=== PATIENT | female | born 1955 | race Caucasian/White ===

== ENCOUNTER 2023-08-18 10:42 | Outpatient (AMB) | payer OTHER, SELFPAY ==
[2023-08-18 10:45] VITALS: BP 128/74; PULSE 74; RESP 13; TEMP 36.4; O2SAT 99; BMI 41.7
--- NOTE | 2023-08-18 10:45 | MHC.PC.OV ---
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 Patient states that she thinks may have a UTI. Accompanied by: Self / Same As Patient Allergies iodine Allergy (Severe, Verified 08/18/23 11:55) Anaphylaxis seafood Allergy (Severe, Verified 08/18/23 11:55) Anaphylaxis yellow dye Allergy (Severe, Verified 08/18/23 11:55) Seizure zine Allergy (Severe, Uncoded 08/18/23 11:55) seizures Tobacco use date assessed: 08/18/23 Fall risk assessment: 2 + Falls in past year Last assessed Fall Risk: 08/18/23 Dental Screening Dental Screen Date: 08/18/23 Did you have a dental visit in the last 12 months?: No Did you have a dental problem in the last 6 months where you did not have access to dental care?: No Was dental information given to patient?: Yes HPI HPI Comments History of Present Illness Details 67-year-old female with bipolar disorder, depression, anxiety, peptic ulcer disease, GERD, osteoporosis, diabetes type 2, osteoarthritis, COPD, stroke, CKD 3a, proteinuria here to establish care. Reports that she recently moved here from [place]. She has a list of requests. The 1st is a letter requesting she received a 2 bedroom apartment. Currently lives in [address] housing. Has a scooter for mobility and does not have I bedroom apartment for this. She also requests a prescription for diabetic boost she uses this for dinner. Reports that she was using Ozempic in the past for her diabetes however this caused severe GI side effects. She was then placed on Victoza achieve weaned herself off. She is lost a significant amount of weight using these medications however since stopping she has gained her weight back. She is on metformin tolerating that well. She does not check her blood sugars at home. She reports that she has urinary symptoms today and thinks she has a UTI and she feels that this is related to elevated blood sugars. She does not know what her last A1c was. She also reports that she has a sore on her left foot. She complains of tremors that were brought on by medications This visit was technically difficult as she has tangential speech, she is very hard to redirect, and does not speak in a linear fashion. Also requested she is out of date of her routine health maintenance things like a bone density, immunizations, mammogram, colonoscopy. She is aware that all this will not be able to be ordered and covered today. However we will deal with the most important things today and continue to chip away at this as she begins to establish care. When I asked her about old medical records from [facility] as she told me that the breakfast that she was seeing was shut down and under some investigation and she has not able to get the records. I asked her for medical records from any other specialist down there and she reports the same. She states that she is not on any psychiatric medications as they made her too sedate and she feels much better without them. However based on this interview I do think that she would benefit from psychiatric intervention. [facility] Medical History (Updated 08/18/23 @ 16:56 by Fiona Jenkins, [facility]) Uterine cancer Bipolar 1 disorder Depression Anxiety Peptic ulcer GERD (gastroesophageal reflux disease) Back injury Osteoporosis Diabetes Arthritis Stroke COPD (chronic obstructive pulmonary disease) Surgical History (Updated 08/18/23 @ 11:25 by Hortensia Del Angel MA) H/O right heart catheterization Hx of cholecystectomy H/O hernia repair H/O: hysterectomy Hx of appendectomy H/O lumpectomy Family History (Updated 08/18/23 @ 11:27 by Hortensia Del Angel MA) Mother Breast cancer Bone cancer Father Diabetes Cardiovascular disease Maternal Grandmother High blood pressure Diabetes Cardiovascular disease Social History Housing: Other Housing Other:: Mobile Home Patient Tobacco Use Status: Former Tobacco user Tobacco use type: Cigarette Cigarette Packs Per Day: 3 Cigarettes Per Day: 60 Years Smoked: 25 e-Cigarette/Vaping Use: Never Used service: No Current occupational status: retired Cognitive needs: No Hearing needs: Yes Vision needs: No Questionnaire PHQ-9 Over the last 2 weeks, how often have you been bothered by any of the following problems? 1. Little interest or pleasure in doing things: not at all 2. Feeling down, depressed, or hopeless: several days 3. Trouble falling or staying asleep, or sleeping too much: several days 4. Feeling tired or having little energy: more than half the days 5. Poor appetite or overeating: more than half the days 6. Feeling bad about yourself - or that you are a failure or have let yourself or your family down: not at all 7. Trouble concentrating on things, such as reading the newspaper or watching television: more than half the days 8. Moving or speaking so slowly that other people could have noticed. Or the opposite - being so fidgety or restless that you have been moving around a lot more than usual: not at all 9. Thoughts that you would be better off or of hurting yourself in some way: not at all Total score: 8 Depression Screening Interpretation: Positive Depression Screening Done: Yes 43454 - PHQ-9 Billing: Yes Source: Developed by Drs. Gurjit White, Yahaira Kent, Yakov Helms and colleagues, with an educational talia from [employer]. Thrive Questionnaire Date Thrive assessed: 08/18/23 I am a: Patient What is your living situation today?: I have a steady place to live Within the past 12 months, did the food you bought not last and you didn't have the money to get more?: Never true Within the past 12 months, did you worry whether your food would run out before you got money to buy more?: Never true Do you have trouble paying for medicines?: No Do you have trouble getting transportation to medical appointments?: Yes Do you have trouble paying your heating and electricity bill?: Yes Do you have trouble taking care of your child, family member or friend?: No Do you have trouble with day-to-day activities such as bathing, preparing meals, shopping, managing finances, etc.?: No Are you currently unemployed and looking for a job?: No Are you interested in more education?: No Please select the resources that you would like help with: Housing/Long Term and None Currently or been in a relationship where the following occur: no concerns reported THRIVE Score: 2 AUDIT C Alcohol Use Questionnaire (AUDIT-C) 1. How often do you have a drink containing alcohol?: Never 3. How often do you have six or more drinks on one occasion?: Never Total Score: 0 GEETA-7 AMB Questionnaire GEETA-7 Date GEETA - 7 assessed: 08/18/23 Feeling nervous, anxious, or on edge: 2 = More than half the days Not being able to stop or control worryin = More than half the days Worrying too much about different things: 2 = More than half the days Trouble relaxin = Several days Being so restless that it is hard to sit still: 0 = Not at all Becoming easily annoyed or irritable: 1 = Several days Feeling afraid as if something awful might happen: 1 = Several days Total GEETA-7 score (0-4 normal; 5-9 mild; 10-14 moderate; 15-21 severe): 9 Source: Developed by Drs. Gurjit White, Yahaira Kent, Yakov Helms and colleagues, with an educational talia from [employer]. GEETA-7 Assessment Billing GEETA-7 Assessment Tool: GEETA-7 Assessment 34505 Review of Systems Const All systems reviewed & are unremarkable except as noted in HPI and below Physical exam (Primary Care) Vital Signs: Last Vital Signs Temp 97.5 F 08/18/23 10:45 Pulse 74 08/18/23 10:45 Resp 13 08/18/23 10:45 BP 128/74 08/18/23 10:45 Pulse Ox 99 08/18/23 10:45 Oxygen Delivery Method Room Air 08/18/23 10:45 BMI result Body Mass Index 41.7 Tobacco/Smoking Status: Tobacco use Status Tobacco use date assessed 08/18/23 08/18/23 11:11 Patient Tobacco Use Status Former Tobacco user 08/18/23 11:11 Tobacco use type Cigarette 08/18/23 11:11 e-Cigarette/Vaping Use Never Used 08/18/23 11:11 PHQ-9: PHQ-9 Score PHQ-9: Total score 8 08/18/23 12:12 Depression Screening Interpretation: Positive Thrive Assessment: Date of Thrive Assessment Date Thrive assessed 08/18/23 08/18/23 11:49 Currently or been in a relationship where the following occur: no concerns reported Const Other: Awake alert oriented Mood elevated, tangential speech Mucous membranes moist Lung sounds clear to auscultation bilat regular rate and rhythm She removed from the left foot where she says that she has a diabetic foot ulcer. However there is no open areas there is no scarring and no signs of any type of ulcerations. When I told her that she said that yes her 2nd toe was red and there was an ulcer. There was absolutely no open area or ulcer or signs of any type of ulcer starting. She does have hairless lower extremity. The rest of my exam was limited as she says she does not tolerate touch and she reacts by kicking people or hitting people as she has a germ a full. With as it may there was no open area on her left foot noted during exam. Results AMB Hemoglobin A1c AMB Hemoglobin A1c 5.8 % Last Edit by Hortensia Del Angel MA on 08/18/23 11:56 Results Reviewed Results Reviewed: Laboratory Last Values Hgb A1c (Clinic) 5.8 % (4.0-6.0) 08/18/23 11:53 Assessment and Plan Assessment & Plan (1) Osteoporosis: Code(s): M81.0 - Age-related osteoporosis without current pathological fracture Qualifiers: Osteoporosis type: age-related Presence of current pathological fracture: without current pathological fracture Qualified Code(s): M81.0 - Age-related osteoporosis without current pathological fracture (2) Diabetes: Code(s): E11.9 - Type 2 diabetes mellitus without complications Qualifiers: Diabetes mellitus type: type 2 Diabetes mellitus retirement insulin use: without terminal operations manager use Diabetes mellitus complication status: with kidney complications Diabetes mellitus complication detail: with chronic kidney disease Chronic kidney disease stage: stage 3 (moderate) Chronic kidney disease stage 3 subtype: stage 3a (GFR 45-59) Qualified Code(s): E11.22 - Type 2 diabetes mellitus with diabetic chronic kidney disease; N18.31 - Chronic kidney disease, stage 3a (3) Bipolar 1 disorder: Code(s): F31.9 - Bipolar disorder, unspecified (4) COPD (chronic obstructive pulmonary disease): Code(s): J44.9 - Chronic obstructive pulmonary disease, unspecified Qualifiers: COPD type: chronic bronchitis Chronic bronchitis type: simple Qualified Code(s): J41.0 - Simple chronic bronchitis Plan TOTAL TIME SPENT CARING FOR THE PATIENT TODAY WAS 75 MINUTES. THIS INCLUDES TIME SPENT BEFORE THE VISIT REVIEWING THE CHART, TIME SPENT DURING THE VISIT, AND TIME SPENT AFTER THE VISIT ON DOCUMENTATION ONCE AGAIN THIS WAS A VERY CHALLENGING EXAM SHE WAS DIFFICULT TO REDIRECT AND JUST KEPT SAYING MORE THINGS THAT NEEDED MORE ATTENTION AND WAS DIFFICULT TO GET DETAILS OF 1 PROBLEM AT A TIME. BE THAT IT MAY I TOLD HER THAT WE WOULD ORDER SOME LABS TODAY TO INCLUDE A URINE. THE URINE WAS REVIEWED AND WAS NOT POSITIVE FOR UTI. IN REGARDS TO HER SAYING THAT HER BLOOD SUGARS WERE ELEVATED AND UNCONTROLLED NOW THAT SHE IS NOT TAKING HER VICTOZA OR OZEMPIC HER A1C DOES NOT SHOW THAT. HER A1C WAS 5.8. SHE WILL RETURN IN ABOUT 2 WEEKS AND WE WILL START TO CHIP AWAY AT ALL OF HER NEEDS I DO HIGHLY RECOMMENDED SUGGEST THAT SHE GETS INTO CARE WITH PSYCH THIS MAY MAKE THINGS EASIER FOR HER GOING FORWARD. THIS WILL BE DIFFICULT HOWEVER SHE DOES NOT THINK THAT SHE NEEDS THIS. IN REGARDS TO MEDICATION MANAGEMENT SHE ALSO DOES NOT FEEL THAT SHE NEEDS MEDICATIONS. SHE REPORTS THAT SHE IS DEATHLY ALLERGIC TO YELLOW DYES. ASKED ME FOR A REFILL ON HER CYCLOBENZAPRINE HOWEVER THIS IS MADE WITH YELLOW DYE. I ADVISED HER TO TALK TO THE PHARMACY AND SEE IF THIS IS SOMETHING THAT SHE CAN GET WITHOUT THE YELLOW DYE. UNTIL THEN I HAVE NOT REFILLED THAT MEDICATION. OTHERWISE HAVE SENT IN A REFILL OF ALL OF HER MEDICATIONS. Orders: Orders Comprehensive Met. Panel Today E11.9 - Type 2 diabetes mellitus without complications, M81.0 - Age-related osteoporosis without current pathological fracture AMB Hemoglobin A1c Today Z13.9 - Encounter for screening, unspecified TSH reflex Free T4 Today E11.9 - Type 2 diabetes mellitus without complications, M81.0 - Age-related osteoporosis without current pathological fracture Vitamin D 1,25 dihydroxy Today E11.9 - Type 2 diabetes mellitus without complications, M81.0 - Age-related osteoporosis without current pathological fracture UA CC w/rflx Micro + Cult Today E11.9 - Type 2 diabetes mellitus without complications, M81.0 - Age-related osteoporosis without current pathological fracture Microalbumin, Random (w Creat) Today E11.9 - Type 2 diabetes mellitus without complications, M81.0 - Age-related osteoporosis without current pathological fracture LDL Cholesterol Direct Today E11.9 - Type 2 diabetes mellitus without complications, M81.0 - Age-related osteoporosis without current pathological fracture Medications: New albuterol sulfate 90 mcg/actuation 2 puffs inhalation Q4-6H 30 days PRN 8.5 grams 0RF shortness of breath or wheezing metformin ER 500 mg PO BID 90 days 180 tabs 0RF pantoprazole (Protonix) 20 mg PO DAILY 90 days 90 tabs 1RF nitroglycerin do not exceed 3 doses per episode 0.4 mg sublingual Q5M 30 days PRN 30 tabs 0RF chest pain Coding Level of Care Code New Pt Level 5 (39448) Diagnoses Age-related osteoporosis without current pathological fracture M81.0 Osteoporosis type: age-related Presence of current pathological fracture: without current pathological fracture Type 2 diabetes mellitus with stage 3a chronic kidney disease, without long-term current use of insulin E11.22; N18.31 Diabetes mellitus type: type 2 Diabetes mellitus retirement insulin use: without terminal operations manager use Diabetes mellitus complication status: with kidney complications Diabetes mellitus complication detail: with chronic kidney disease Chronic kidney disease stage: stage 3 (moderate) Chronic kidney disease stage 3 subtype: stage 3a (GFR 45-59) Bipolar 1 disorder F31.9 Simple chronic bronchitis J41.0 COPD type: chronic bronchitis Chronic bronchitis type: simple Additional Codes GEETA-7 Assessment Billing - GEETA-7 Assessment Tool: GEETA-7 Assessment [id number] ([id number])
== END 2023-08-18 12:47 | disposition home or self-care (01) ==
PROVIDERS: PCP Nurse Practitioner Family; Visit Provider Nurse Practitioner Family
DX: E11.22 Type 2 diabetes mellitus with diabetic chronic kidney disease (principal); N18.31 Chronic kidney disease, stage 3a; F31.9 Bipolar disorder, unspecified; J41.0 Simple chronic bronchitis; M81.0 Age-related osteoporosis without current pathological fracture
CPT/HCPCS: 83036; 96127; 99205

== ENCOUNTER 2023-08-18 12:16 | Outpatient (REF) | payer OTHER, SELFPAY ==
[2023-08-18 15:02] LABS: Appearance Urine Clear; Color Urine Yellow; Glucose Urine UA Negative (Negative); Leukocyte Esterase Urine Negative (Negative); Nitrite Urine Negative (Negative); PH 5.5 (5.0-9.0); UMIC TRIGGER UACC YES; Urine Blood Negative (Negative); Urine Ketones Negative (Negative); Urine Protein 30 (1+) mg/dL (Neg-Trace)
[2023-08-18 15:09] LABS: Bacteria Urine None Seen (None Seen); Hyaline Casts Urine 0-2 /LPF (0-2); RBC Urine 0-2 /HPF (0-2); Squamous Epithelial Cell Urine 0-2 /HPF (0-2); WBC Urine 0-5 /HPF (0-5)
[2023-08-18 15:12] LABS: Creatinine Urine 106.82 mg/dL; Microalbum/Creatinine Ratio Ur 298.6 ug/mg cr (<30)
[2023-08-18 15:17] LABS: Alanine Aminotransferase 12 U/L (0-31); Albumin Level 4.3 g/dL (3.5-5.0); Alkaline Phosphatase 80 U/L (39-117); Anion Gap 12 (12-20); Aspartate Amino Transferase 14 U/L (5-31); Bilirubin Total 0.4 mg/dL (0.0-1.0); Blood Urea Nitrogen 28 mg/dL (9-16); Calcium 10.1 mg/dL (8.4-10.2); Carbon Dioxide 25 mmol/L (22-29); Chloride 107 mmol/L (96-108); Estimated Glomerular Filt Rate 53; Glucose Random 93 mg/dL (60-115); Potassium 4.1 mmol/L (3.3-5.1); Sodium 140 mmol/L (135-145); Total Protein 7.4 g/dL (6.5-8.0)
[2023-08-18 15:31] LABS: TSH reflex Free T4 1.18 uIU/mL (0.32-4.0)
[2023-08-19 09:34] LABS: LDL Cholesterol Direct 92 mg/dL (<100)
[2023-08-23 00:59] LABS: VITAMIN D (1,25 OH) D3 38 pg/mL; Vit D (1,25-Dihydroxy) Total 38 pg/mL (18-72); Vitamin D (1,25 OH) D2 <8 pg/mL
== END 2023-08-18 12:17 | disposition home or self-care (01) ==
LOC: HO.WFDLDS 12:16
PROVIDERS: Visit Provider Nurse Practitioner Family
DX: M81.0 Age-related osteoporosis without current pathological fracture (principal); E11.9 Type 2 diabetes mellitus without complications
CPT/HCPCS: 36415; 80053; 81001; 81003; 82043; 82570; 82652; 83721; 84443

== ENCOUNTER 2023-08-29 15:54 | Outpatient (REF) | payer OTHER, SELFPAY ==
--- NOTE | ~2023-08-29 | MM_ITS ---
EXAMINATION: MM SCREENING DIGITAL BREAST TOMOSYNTHESIS, BILATERAL CLINICAL INFORMATION: Screening. Asymptomatic. COMPARISON: Mammography: This study is compared with prior exams dating back to 2017. TECHNIQUE: Digital breast tomosynthesis is performed in both the craniocaudal and mediolateral oblique views along with computer-aided detection (CAD). Synthesized 2D images are generated from the tomosynthesis. FINDINGS: The breasts are almost entirely fatty (ACR BI-RADS breast composition Category a). There are no significant masses, abnormal calcifications, or other abnormalities. MM/MM tomosynthesis screening BI IMPRESSION: No mammographic evidence of malignancy. ASSESSMENT: BI-RADS BI-RADS 1 - Negative RECOMMENDATION: Routine annual mammography screening. 1 year F/U This examination should not preclude the clinical evaluation of a suspicious palpable abnormality. This patient's information was entered into a reminder system with a target due date for their next mammogram.
== END 2023-08-29 15:55 | disposition home or self-care (01) ==
LOC: HO.MAMMO 15:54
PROVIDERS: PCP Nurse Practitioner Family; Visit Provider Nurse Practitioner Family
DX: Z12.31 Encounter for screening mammogram for malignant neoplasm of breast (principal)
CPT/HCPCS: 77063; 77067

== ENCOUNTER → 2023-08-29 16:30 | Outpatient (BNV) | payer OTHER, SELFPAY | PROVIDERS: PCP Nurse Practitioner Family; Visit Provider Radiology Diagnostic Radiology | DX: Z12.31 Encounter for screening mammogram for malignant neoplasm of breast (principal) | CPT/HCPCS: 77063; 77067 ==

== ENCOUNTER 2023-09-01 08:29 | Outpatient (AMB) | payer OTHER, SELFPAY ==
--- NOTE | 2023-09-01 08:34 | A.OFFPC_ITS ---
Vital Signs 09/01/23 08:49 Height 5 ft 2 in Weight 231 lb BMI 42.2 BP 132/82 Blood Pressure Location Lt brachial Position Sitting Respiration 12 Pulse 77 Pulse Source Pulse Oximeter Temp 97.9 F Temp Source Oral Pulse Oximetry (%) 100 Oxygen Delivery Method Room Air Intake Visit Reasons: complex new patient f/u Intake Note: Patient is here for a new patient visit, she has a terrible pain in her back, spams if she moves too quickly. Allergies iodine Allergy (Severe, Verified 09/01/23 09:10) Anaphylaxis seafood Allergy (Severe, Verified 09/01/23 09:10) Anaphylaxis yellow dye Allergy (Severe, Verified 09/01/23 09:10) Seizure zine Allergy (Severe, Uncoded 09/01/23 08:51) seizures Medication List - Last Reconciled 09/01/23 by RASHI Mejia albuterol sulfate 90 mcg/actuation 2 puffs inhalation Q4-6H PRN 30 days furosemide 20 mg PO DAILY PRN metformin ER 500 mg PO BID 90 days nitroglycerin 0.4 mg sublingual Q5M PRN 30 days Tobacco use date assessed: 09/01/23 Fall risk assessment: 2 + Falls in past year Last assessed Fall Risk: 09/01/23 HPI HPI Comments History of Present Illness Details 67-year-old female with bipolar disorder , depression, anxiety, peptic ulcer disease, GERD, osteoporosis, diabetes type 2, osteoarthritis, COPD, stroke, CKD 3a, proteinuria Specialists: Health Maintenance: DEXA Colon Mammo 08/29/23 results pending Vaccines UTD on flu, COVID. Needs RSV and Shingles. Will get at local pharmacy Pap DME Exam Hga1c 07/2023 5.8% Here today with c/o cold like sx started about a week ago head congested and feeling foggy, sore throat, runny nose, cough exposed to sick family members UTD on vaccines Now has spasm between shoulder blades To tx at home took APAP PM handicap placard completed today protonix that was sent to pharmacy has yellow dye. Needs new Rx. Omeprazole is white Wants Rx for boost. COUNT INCLUDES THE [facility] Medical History (Updated 09/01/23 @ 13:05 by RASHI Mejia) Uterine cancer Bipolar 1 disorder Depression Anxiety Peptic ulcer GERD (gastroesophageal reflux disease) Back injury Osteoporosis Diabetes Arthritis Stroke COPD (chronic obstructive pulmonary disease) Surgical History (Updated 08/18/23 @ 11:25 by Hortensia Del Angel MA) H/O right heart catheterization Hx of cholecystectomy H/O hernia repair H/O: hysterectomy Hx of appendectomy H/O lumpectomy Family History (Updated 08/18/23 @ 11:27 by Hortensia Del Angel MA) Mother Breast cancer Bone cancer Father Diabetes Cardiovascular disease Maternal Grandmother High blood pressure Diabetes Cardiovascular disease Social History Housing: Other (M) Housing Other:: Mobile Home Patient Tobacco Use Status: Former Tobacco user Tobacco use type: Cigarette Cigarette Packs Per Day: 3 Cigarettes Per Day: 60 Years Smoked: 25 e-Cigarette/Vaping Use: Never Used service: No Current occupational status: retired Cognitive needs: No Hearing needs: Yes Vision needs: No Questionnaire Thrive Questionnaire Date Thrive assessed: 08/18/23 GEETA-7 AMB Questionnaire GEETA-7 Date GEETA - 7 assessed: 08/18/23 Source: Developed by Drs. Gurjit White, Yahaira Kent, Yakov Helms and colleagues, with an educational talia from [employer]. Review of Systems Const All systems reviewed & are unremarkable except as noted in HPI and below Physical exam (Primary Care) Vital Signs: Last Vital Signs Temp 97.9 F 09/01/23 08:49 Pulse 77 09/01/23 08:49 Resp 12 09/01/23 08:49 BP 132/82 09/01/23 08:49 Pulse Ox 100 09/01/23 08:49 Oxygen Delivery Method Room Air 09/01/23 08:49 BMI result Body Mass Index 42.2 BMI Assessment/Plan discussion: High BMI High, discussed plan: lifestyle Tobacco/Smoking Status: Tobacco use Status Tobacco use date assessed 09/01/23 09/01/23 08:51 Patient Tobacco Use Status Former Tobacco user 09/01/23 08:34 Tobacco use type Cigarette 09/01/23 08:34 e-Cigarette/Vaping Use Never Used 09/01/23 08:34 Thrive Assessment: Date of Thrive Assessment Date Thrive assessed 08/18/23 09/01/23 08:34 Const Other: Awake alert cooperative TM intact and erythematous bilat Nares w/ clear drainage bilat, turbinates erythematous Pharynx WNL LS CTAB Results Reviewed Results Reviewed: Labs from 08/18/23 Assessment and Plan Assessment & Plan (1) GERD (gastroesophageal reflux disease): Comment: cannot tolerate yellow dye; new RX for omeprazole 20 sent to local pharmacy. Code(s): K21.9 - Gastro-esophageal reflux disease without esophagitis Qualifiers: Esophagitis presence: without esophagitis Qualified Code(s): K21.9 - Gastro-esophageal reflux disease without esophagitis (2) Flu-like symptoms: Comment: Viral swab today negative. Given her history of COPD the decision was made to treat with azithromycin. She reports that this works quite well for her. Code(s): R68.89 - Other general symptoms and signs (3) DM (diabetes mellitus), type 2 with renal complications: Comment: diet controlled > need DME referral Code(s): E11.29 - Type 2 diabetes mellitus with other diabetic kidney complication Qualifiers: Chronic kidney disease stage: stage 3 (moderate) Chronic kidney disease stage 3 subtype: stage 3a (GFR 45-59) Diabetes mellitus complication detail: with chronic kidney disease Diabetes mellitus senior living insulin use: without terminal supervisor use Qualified Code(s): E11.22 - Type 2 diabetes mellitus with diabetic chronic kidney disease; N18.31 - Chronic kidney disease, stage 3a Plan: Wants RX for Boost. I have sent referral to [facility] to help me write this; unsure of what is covered. Will send after info obtained. (4) COPD (chronic obstructive pulmonary disease): Code(s): J44.9 - Chronic obstructive pulmonary disease, unspecified Qualifiers: COPD type: chronic bronchitis Chronic bronchitis type: simple Qualified Code(s): J41.0 - Simple chronic bronchitis Orders: Orders SARS-CoV2/FLU/RSV Today R68.89 - Other general symptoms and signs Referrals Nurse Navigator Referral E11.29 - Type 2 diabetes mellitus with other diabetic kidney complication Medications: New omeprazole 20 mg PO DAILY 90 tabs 1RF azithromycin For 250 mg dose pack: take 500 mg today (day 1), then 250 mg for 4 days (days 2-5) orally; 6 tabs 0RF 5 days Coding Level of Care Code Est Pt Level 5 (34731) Diagnoses Gastroesophageal reflux disease without esophagitis K21.9 Esophagitis presence: without esophagitis Flu-like symptoms R68.89 Type 2 diabetes mellitus with stage 3a chronic kidney disease, without long-term current use of insulin E11.22; N18.31 Chronic kidney disease stage: stage 3 (moderate) Chronic kidney disease stage 3 subtype: stage 3a (GFR 45-59) Diabetes mellitus complication detail: with chronic kidney disease Diabetes mellitus terminal supervisor insulin use: without terminal supervisor use Simple chronic bronchitis J41.0 COPD type: chronic bronchitis Chronic bronchitis type: simple
[2023-09-01 08:49] VITALS: BP 132/82; PULSE 77; RESP 12; TEMP 36.6; O2SAT 100; BMI 42.2
== END 2023-09-01 10:13 | disposition home or self-care (01) ==
PROVIDERS: PCP Nurse Practitioner Family; Visit Provider Nurse Practitioner Family
DX: K21.9 Gastro-esophageal reflux disease without esophagitis (principal); E11.22 Type 2 diabetes mellitus with diabetic chronic kidney disease; N18.31 Chronic kidney disease, stage 3a; J41.0 Simple chronic bronchitis; R68.89 Other general symptoms and signs
CPT/HCPCS: 99214

== ENCOUNTER 2023-09-01 11:58 | Outpatient (REF) | payer OTHER, SELFPAY ==
[2023-09-01 12:56] LABS: Influenza A PCR NEGATIVE (Negative); Influenza B PCR NEGATIVE (Negative); Resp Syncy Virus RNA Qual PCR NEGATIVE (Negative); SARS COV2 PCR INHOUSE NEGATIVE (Negative)
== END 2023-09-01 11:59 | disposition home or self-care (01) ==
LOC: HO.HMGCLNP 11:58
PROVIDERS: Visit Provider Nurse Practitioner Family
DX: Z11.52 Encounter for screening for COVID-19 (principal); Z20.822 Contact with and (suspected) exposure to COVID-19; R68.89 Other general symptoms and signs
CPT/HCPCS: 0241U

== ENCOUNTER 2023-11-03 09:52 | Outpatient (AMB) | payer OTHER, SELFPAY ==
--- NOTE | 2023-11-03 10:33 | MHC.PC.OV ---
Vital Signs 11/03/23 10:43 Height 5 ft 2 in Weight 243 lb 6 oz BMI 44.5 BP 118/78 Blood Pressure Location Lt brachial Position Sitting Respiration 14 Pulse 77 Pulse Source Pulse Oximeter Temp 98 F Temp Source Oral Pulse Oximetry (%) 97 Intake Visit Reasons: complex dz fu Intake Note: Migraines, muscle tightening in arms and legs, trouble breathing for past three weeks. Hasn't had her CPAP in 4 years because hers was recalled. Needs prescription for boost. Event Services Manager Required: No Allergies iodine Allergy (Severe, Verified 11/03/23 10:51) Anaphylaxis seafood Allergy (Severe, Verified 11/03/23 10:51) Anaphylaxis yellow dye Allergy (Severe, Verified 11/03/23 10:51) Seizure zine Allergy (Severe, Uncoded 11/03/23 10:36) seizures Medication List - Last Reconciled 11/03/23 by Fiona Jenkins, [employer]- albuterol sulfate 90 mcg/actuation 2 puffs inhalation Q4-6H PRN 30 days furosemide 20 mg PO DAILY PRN metformin ER 500 mg PO BID 90 days nitroglycerin 0.4 mg sublingual Q5M PRN 30 days omeprazole 20 mg PO DAILY Tobacco use date assessed: 11/03/23 Fall risk assessment: 2 + Falls in past year Last assessed Fall Risk: 11/03/23 Dental Screening Dental Screen Date: 11/03/23 Did you have a dental visit in the last 12 months?: No Did you have a dental problem in the last 6 months where you did not have access to dental care?: No Was dental information given to patient?: Patient has dentist HPI HPI Comments History of Present Illness Details 68-year-old female with bipolar disorder, depression, anxiety, peptic ulcer disease, GERD, osteoporosis, diabetes type 2, osteoarthritis, COPD, stroke, CKD 3a, proteinuria, KHRIS Specialists: counselor Health Maintenance: DEXA Colon reports one done 12 years ago and WNL. Declines colon but will do Cologaurd. Mammo 08/2023 BI-RADS BI-RADS 1 - Negative Vaccines Pap DME Exam scheduled next week [facility] Hga1c 07/2023 5.8% Here today for routine fu Having migraine like headaches. Assoc w light sensitivity. KHRIS on CPAP. Has been w/o for 4 years. Several falls since the last visit. Due to muscle tightness/cramps. Breathing has been worse since living here in [place]. d/t allergies. Has dentist appt set up next week and DME exam. Est care w/ counselor, looking forward to this. Got new section 8 apt, moving in November 2023. Labs from today show normal electrolytes, BUN 21, creatinine 0.84, EGFR greater than 60, random glucose of 134, normal calcium, low phosphorus at 2.4, low magnesium at 1.4, normal LFTs, normal B12, elevated parathyroid hormone at 121, A1c 6.3% [facility] Medical History (Updated 11/03/23 @ 17:26 by Fiona Jenkins, [facility] [place]) Uterine cancer Bipolar 1 disorder Depression Anxiety Peptic ulcer GERD (gastroesophageal reflux disease) Back injury Osteoporosis Diabetes Arthritis Stroke COPD (chronic obstructive pulmonary disease) Surgical History (Updated 08/18/23 @ 11:25 by ABAD Richards) H/O right heart catheterization Hx of cholecystectomy H/O hernia repair H/O: hysterectomy Hx of appendectomy H/O lumpectomy Family History (Updated 08/18/23 @ 11:27 by ABAD Richards) Mother Breast cancer Bone cancer Father Diabetes Cardiovascular disease Maternal Grandmother High blood pressure Diabetes Cardiovascular disease Social History Housing: Other (M) Housing Other:: Mobile Home Patient Tobacco Use Status: Former Tobacco user Tobacco use type: Cigarette Cigarette Packs Per Day: 3 Cigarettes Per Day: 60 Years Smoked: 30 e-Cigarette/Vaping Use: Never Used service: No Current occupational status: retired Cognitive needs: No Hearing needs: Yes Vision needs: No Questionnaire Thrive Questionnaire Date Thrive assessed: 08/18/23 AUDIT C Alcohol Use Questionnaire (AUDIT-C) 1. How often do you have a drink containing alcohol?: Monthly or less 2. How many drinks containing alcohol do you have on a typical day when you are drinking?: 1 or 2 3. How often do you have six or more drinks on one occasion?: Never Total Score: 1 GEETA-7 AMB Questionnaire GEETA-7 Date GEETA - 7 assessed: 08/18/23 Source: Developed by Drs. Gurjit White, Yahaira Kent, Yakov Helms and colleagues, with an educational talia from [employer]. Review of Systems Const All systems reviewed & are unremarkable except as noted in HPI and below Physical exam (Primary Care) Vital Signs: Last Vital Signs Temp 98 F 11/03/23 10:43 Pulse 77 11/03/23 10:43 Resp 14 11/03/23 10:43 BP 118/78 11/03/23 10:43 Pulse Ox 97 11/03/23 10:43 BMI result Body Mass Index 44.5 BMI Assessment/Plan discussion: High BMI High, discussed plan: lifestyle Tobacco/Smoking Status: Tobacco use Status Tobacco use date assessed 11/03/23 11/03/23 10:41 Patient Tobacco Use Status Former Tobacco user 11/03/23 10:41 Tobacco use type Cigarette 11/03/23 10:41 e-Cigarette/Vaping Use Never Used 11/03/23 10:41 Thrive Assessment: Date of Thrive Assessment Date Thrive assessed 08/18/23 11/03/23 10:41 Const Other: Awake alert oriented Mood elevated, tangential speech Mucous membranes moist Lung sounds clear to auscultation bilat regular rate and rhythm No edema BLE Assessment and Plan Assessment & Plan (1) DM (diabetes mellitus), type 2 with renal complications: Comment: On metformin ER 500 mg p.o. b.i.d.. Hemoglobin A1c today 6.3% [facility] scheduled for next week Code(s): E11.29 - Type 2 diabetes mellitus with other diabetic kidney complication Qualifiers: Chronic kidney disease stage: stage 3 (moderate) Chronic kidney disease stage 3 subtype: stage 3a (GFR 45-59) Diabetes mellitus complication detail: with chronic kidney disease Diabetes mellitus termite exterminator helper insulin use: without termite exterminator helper use Qualified Code(s): E11.22 - Type 2 diabetes mellitus with diabetic chronic kidney disease; N18.31 - Chronic kidney disease, stage 3a (2) CKD (chronic kidney disease) stage 3, GFR 30-59 ml/min: Comment: Last GFR 53. Avoid nephrotoxic agents. Continue to monitor. Code(s): N18.30 - Chronic kidney disease, stage 3 unspecified Qualifiers: Chronic kidney disease stage 3 subtype: stage 3a (GFR 45-59) Qualified Code(s): N18.31 - Chronic kidney disease, stage 3a (3) KHRIS (obstructive sleep apnea): Comment: Was on a CPAP in the past. Has been without for 4 years. Need to update a sleep study to see if she still needs a CPAP machine. May need a referral to pulmonology were sleep Medicine. We will wait to see with the sleep study results show 1st. Code(s): G47.33 - Obstructive sleep apnea (adult) (pediatric) (4) COPD (chronic obstructive pulmonary disease): Comment: Currently only on albuterol. Reports she was on Advair in the past but this did not work for her. Plan: Start Spiriva 2.5 mcg 2 puffs 1 time per day. Advised to rinse mouth out after. Former smoker ?? Lung cancer screening Code(s): J44.9 - Chronic obstructive pulmonary disease, unspecified Qualifiers: COPD type: chronic bronchitis Chronic bronchitis type: simple Qualified Code(s): J41.0 - Simple chronic bronchitis (5) Hypomagnesemia: Comment: from today show normal electrolytes, BUN 21, creatinine 0.84, EGFR greater than 60, random glucose of 134, normal calcium, low phosphorus at 2.4, low magnesium at 1.4, normal LFTs, normal B12, elevated parathyroid hormone at 121, A1c 6.3% i have sent in Rx for supplement to take for 7 days. repeat labs next week Code(s): E83.42 - Hypomagnesemia (6) Hypophosphatemia due to chronic kidney disease: Comment: from today show normal electrolytes, BUN 21, creatinine 0.84, EGFR greater than 60, random glucose of 134, normal calcium, low phosphorus at 2.4, low magnesium at 1.4, normal LFTs, normal B12, elevated parathyroid hormone at 121, A1c 6.3% i have sent in Rx for supplement to take for 7 days. repeat labs next week Code(s): E83.39 - Other disorders of phosphorus metabolism; N18.9 - Chronic kidney disease, unspecified (7) Hyperparathyroidism: Comment: from today show normal electrolytes, BUN 21, creatinine 0.84, EGFR greater than 60, random glucose of 134, normal calcium, low phosphorus at 2.4, low magnesium at 1.4, normal LFTs, normal B12, elevated parathyroid hormone at 121, A1c 6.3% i have sent in Rx for supplement to take for 7 days. repeat labs next week Code(s): E21.3 - Hyperparathyroidism, unspecified Plan This note is constructed using voice recognition software. While every effort has been made to ensure accuracy in machine heel seat laster, still errors may have been included Sometimes, these errors may affect the content or meaning of the given sentence . Total time spent caring for the patient today was 60 minutes. This includes time spent before the visit reviewing the chart, time spent during the visit, and time spent after the visit on documentation Lab results called to her at 1723. No answer. Left detailed message on voicemail w/ directions. Orders: Orders Hemoglobin A1c Today E11.22 - Type 2 diabetes mellitus with diabetic chronic kidney disease, N18.31 - Chronic kidney disease, stage 3a Comprehensive Met. Panel Today E11.22 - Type 2 diabetes mellitus with diabetic chronic kidney disease, N18.31 - Chronic kidney disease, stage 3a Phosphorus Today E11.22 - Type 2 diabetes mellitus with diabetic chronic kidney disease, N18.30 - Chronic kidney disease, stage 3 unspecified, N18.31 - Chronic kidney disease, stage 3a Magnesium 11/01/23 E21.3 - Hyperparathyroidism, unspecified, E83.39 - Other disorders of phosphorus metabolism, E83.42 - Hypomagnesemia, N18.9 - Chronic kidney disease, unspecified Phosphorus Today E21.3 - Hyperparathyroidism, unspecified, E83.39 - Other disorders of phosphorus metabolism, E83.42 - Hypomagnesemia, N18.9 - Chronic kidney disease, unspecified LDL Cholesterol Direct Today E11.22 - Type 2 diabetes mellitus with diabetic chronic kidney disease, N18.31 - Chronic kidney disease, stage 3a Vitamin B12 and Folate Today E11.22 - Type 2 diabetes mellitus with diabetic chronic kidney disease, N18.30 - Chronic kidney disease, stage 3 unspecified, N18.31 - Chronic kidney disease, stage 3a Magnesium Today E11.22 - Type 2 diabetes mellitus with diabetic chronic kidney disease, N18.30 - Chronic kidney disease, stage 3 unspecified, N18.31 - Chronic kidney disease, stage 3a Parathyroid Hormone Intact Today E11.22 - Type 2 diabetes mellitus with diabetic chronic kidney disease, N18.30 - Chronic kidney disease, stage 3 unspecified, N18.31 - Chronic kidney disease, stage 3a RT home sleep study Today G47.33 - Obstructive sleep apnea (adult) (pediatric) Referrals Cologuard Test Z12.11 - Encounter for screening for malignant neoplasm of colon, Z12.12 - Encounter for screening for malignant neoplasm of rectum Medications: New magnesium citrate 100 mg PO BID 14 tabs 0RF tiotropium bromide 2.5 mcg/actuation (Spiriva Respimat) 2 inhalations inhalation QAM 30 days 4 grams 3RF sod phos di, mono-K phos mono 250 mg (F-Moii-Pvusyty) 1 tab PO BID 14 tabs 0RF Review Patient declined Colonoscopy: 11/03/23 Coding Level of Care Code Est Pt Level 5 (88218) Diagnoses Type 2 diabetes mellitus with stage 3a chronic kidney disease, without long-term current use of insulin E11.22; N18.31 Chronic kidney disease stage: stage 3 (moderate) Chronic kidney disease stage 3 subtype: stage 3a (GFR 45-59) Diabetes mellitus complication detail: with chronic kidney disease Diabetes mellitus termite exterminator helper insulin use: without termite exterminator helper use Stage 3a chronic kidney disease N18.31 Chronic kidney disease stage 3 subtype: stage 3a (GFR 45-59) KHRIS (obstructive sleep apnea) G47.33 Simple chronic bronchitis J41.0 COPD type: chronic bronchitis Chronic bronchitis type: simple Hypomagnesemia E83.42 Hypophosphatemia due to chronic kidney disease E83.39; N18.9 Hyperparathyroidism E21.3
[2023-11-03 10:43] VITALS: BP 118/78; PULSE 77; RESP 14; TEMP 36.6; O2SAT 97; BMI 44.5
== END 2023-11-03 11:28 | disposition home or self-care (01) ==
PROVIDERS: PCP Nurse Practitioner Family; Visit Provider Nurse Practitioner Family
DX: E11.22 Type 2 diabetes mellitus with diabetic chronic kidney disease (principal); N18.31 Chronic kidney disease, stage 3a; G47.33 Obstructive sleep apnea (adult) (pediatric); J41.0 Simple chronic bronchitis; E83.42 Hypomagnesemia; E83.39 Other disorders of phosphorus metabolism; N18.9 Chronic kidney disease, unspecified; E21.3 Hyperparathyroidism, unspecified
CPT/HCPCS: 99215

== ENCOUNTER 2023-11-03 11:18 | Outpatient (REF) | payer OTHER, SELFPAY ==
[2023-11-03 14:46] LABS: Estimated Average Glucose 134 mg/dL; Hemoglobin A1c % 6.3 % (<6.0)
[2023-11-03 15:50] LABS: Parathyroid Hormone Intact 121.4 pg/mL (8.7-77.1)
[2023-11-03 15:59] LABS: Alanine Aminotransferase 11 U/L (0-31); Albumin Level 4.2 g/dL (3.5-5.0); Alkaline Phosphatase 99 U/L (39-117); Anion Gap 12 (12-20); Aspartate Amino Transferase 15 U/L (5-31); Bilirubin Total 0.3 mg/dL (0.0-1.0); Blood Urea Nitrogen 21 mg/dL (9-16); Calcium 10.2 mg/dL (8.4-10.2); Carbon Dioxide 23 mmol/L (22-29); Chloride 107 mmol/L (96-108); Estimated Glomerular Filt Rate > 60; Glucose Random 134 mg/dL (60-115); Magnesium 1.4 mg/dL (1.6-2.6); Phosphorus 2.4 mg/dL (2.7-4.5); Potassium 4.1 mmol/L (3.3-5.1); Sodium 138 mmol/L (135-145); Total Protein 7.6 g/dL (6.5-8.0)
[2023-11-03 16:05] LABS: Folate 13.5 ng/mL (> or = 4.0); Vitamin B12 559 pg/mL (200-900)
[2023-11-04 10:49] LABS: LDL Cholesterol Direct 96 mg/dL (<100)
== END 2023-11-03 11:19 | disposition home or self-care (01) ==
LOC: HO.WFDLDS 11:18
PROVIDERS: Visit Provider Nurse Practitioner Family
DX: E11.22 Type 2 diabetes mellitus with diabetic chronic kidney disease (principal); N18.31 Chronic kidney disease, stage 3a
CPT/HCPCS: 36415; 80053; 82607; 82746; 83036; 83721; 83735; 83970; 84100

== ENCOUNTER 2023-11-09 10:26 | Outpatient (REF) | payer OTHER, SELFPAY ==
[2023-11-09 12:27] LABS: Phosphorus 2.7 mg/dL (2.7-4.5)
[2023-11-09 14:40] LABS: Appearance Urine Clear; Color Urine Yellow; Glucose Urine UA Negative (Negative); Leukocyte Esterase Urine Negative (Negative); Nitrite Urine Negative (Negative); PH 5.5 (5.0-9.0); UMIC TRIGGER UACC YES; Urine Blood Negative (Negative); Urine Ketones Negative (Negative); Urine Protein 100 (2+) mg/dL (Neg-Trace)
[2023-11-09 14:44] LABS: Magnesium 1.3 mg/dL (1.6-2.6)
[2023-11-09 14:45] LABS: Bacteria Urine Trace (None Seen); Hyaline Casts Urine 0-2 /LPF (0-2); RBC Urine 0-2 /HPF (0-2); WBC Urine 0-5 /HPF (0-5)
== END 2023-11-09 10:27 | disposition home or self-care (01) ==
LOC: HO.WFDLDS 10:26
PROVIDERS: Visit Provider Nurse Practitioner Family
DX: E83.42 Hypomagnesemia (principal); E83.39 Other disorders of phosphorus metabolism; N18.9 Chronic kidney disease, unspecified
CPT/HCPCS: 36415; 81001; 83735; 84100

== ENCOUNTER 2023-12-01 09:50 | Outpatient (REF) | payer OTHER, SELFPAY ==
[2023-12-01 11:40] LABS: Appearance Urine Clear; Color Urine Yellow; Glucose Urine UA 250 mg/dL (Negative); Leukocyte Esterase Urine Trace (Negative); Nitrite Urine Negative (Negative); PH 5.5 (5.0-9.0); UMIC TRIGGER UACC YES; Urine Blood Negative (Negative); Urine Ketones Negative (Negative); Urine Protein 100 (2+) mg/dL (Neg-Trace)
[2023-12-01 11:43] LABS: Bacteria Urine None Seen (None Seen); Hyaline Casts Urine 0-2 /LPF (0-2); RBC Urine 0-2 /HPF (0-2); UACC Culture Trigger YES
[2023-12-01 13:05] LABS: Phosphorus 2.3 mg/dL (2.7-4.5)
[2023-12-01 13:29] LABS: Magnesium 1.3 mg/dL (1.6-2.6)
== END 2023-12-01 09:51 | disposition home or self-care (01) ==
LOC: HO.WFDLDS 09:50
PROVIDERS: Visit Provider Nurse Practitioner Family
DX: Z13.89 Encounter for screening for other disorder (principal)
CPT/HCPCS: 36415; 81001; 83735; 84100; 87086

== ENCOUNTER 2023-12-01 10:33 | Outpatient (AMB) | payer OTHER, SELFPAY ==
[2023-12-01 10:54] VITALS: BP 126/80; PULSE 98; RESP 15; TEMP 36.6; O2SAT 98; BMI 45.4
--- NOTE | 2023-12-01 10:54 | A.OFFPC_ITS ---
Vital Signs 12/01/23 10:54 Height 5 ft 2 in Weight 248 lb 8 oz BMI 45.4 BP 126/80 Blood Pressure Location Rt brachial Position Sitting Respiration 15 Pulse 98 Pulse Source Pulse Oximeter Temp 97.8 F Temp Source Temporal Artery Scan Pulse Oximetry (%) 98 Oxygen Delivery Method Room Air Intake Visit Reasons: 2 weeks w me 30 min fu COPD & labs Intake Note: Patient states shes been having headaches, her tremors are worse, shes fallen 3 times in past 2 weeks and her eyes have been giving her trouble. Art Specialist Required: No Accompanied by: Self / Same As Patient Allergies iodine Allergy (Severe, Verified 12/01/23 12:58) Anaphylaxis seafood Allergy (Severe, Verified 12/01/23 12:58) Anaphylaxis yellow dye Allergy (Severe, Verified 12/01/23 12:58) Seizure zine Allergy (Severe, Uncoded 11/03/23 10:36) seizures Medication List - Last Reconciled 12/01/23 by Fiona Jenkins, [facility]- albuterol sulfate 90 mcg/actuation 2 puffs inhalation Q4-6H PRN 30 days furosemide 20 mg PO DAILY PRN magnesium oxide 200 mg PO BID metformin ER 500 mg PO BID 90 days nitroglycerin 0.4 mg sublingual Q5M PRN 30 days omeprazole 20 mg PO DAILY tiotropium bromide 2.5 mcg/actuation (Spiriva Respimat) 2 inhalations inhalation QAM 30 days Tobacco use date assessed: 11/03/23 Dental Screening Dental Screen Date: 11/03/23 HPI HPI Comments History of Present Illness Details Here today to f/u on tremors, falls , and abnormal labs worsening since last visit she is taking K supplement over the counter as she thought this would be helpful, as she had low potassium in the past she is using otc magnesium stating she cannot afford the RX; having diarrhea from taking oral meds. took Phos as directed and this improved on repeat labs 11/09/23 she is worried about living on her own d/t falls and ability to manage; wants VNA or something to help her. will be working on getting life line generally feels unwell; unable to tolerate food, feeling weak and shaky. had 1 episode of hypoglycemia. Labs from today reveal a critically low magnesium as well as phosphorus. The decision was made to transfer her to the hospital for evaluation and treatment. The patient is agreeable. Her sister will bring her via private vehicle. An expect was called to [facility] emergency room and report was given to the PA. Patient was advised that she should follow up with me after the hospital workup Other notes: Boost Rx was given to her today and the MA was asked to fax to [facility] cannot do the home sleep study or in lab sleep study d/t transportation; she was referred to sleep med as the scheduling is better. [facility] Medical History Uterine cancer Bipolar 1 disorder Depression Anxiety Peptic ulcer GERD (gastroesophageal reflux disease) Back injury Osteoporosis Diabetes Arthritis Stroke COPD (chronic obstructive pulmonary disease) Surgical History H/O right heart catheterization Hx of cholecystectomy H/O hernia repair H/O: hysterectomy Hx of appendectomy H/O lumpectomy Family History Mother Breast cancer Bone cancer Father Diabetes Cardiovascular disease Maternal Grandmother High blood pressure Diabetes Cardiovascular disease Social History Housing: Other (M) Housing Other:: Mobile Home Patient Tobacco Use Status: Former Tobacco user Tobacco use type: Cigarette Cigarette Packs Per Day: 3 Cigarettes Per Day: 60 Years Smoked: 30 Smoked in Last 30 Days: No e-Cigarette/Vaping Use: Never Used Use of substances other than those prescribed or required for medical reasons: No Advance Directives: No Advance Directives Information Provided: No service: No Current occupational status: retired Cognitive needs: No Hearing needs: Yes Vision needs: No Questionnaire Thrive Questionnaire Date Thrive assessed: 08/18/23 GEETA-7 AMB Questionnaire GEETA-7 Date GEETA - 7 assessed: 08/18/23 Source: Developed by Drs. Gurjit White, Yahaira Kent, Yakov Helms and colleagues, with an educational talia from [employer]. Review of Systems Const All systems reviewed & are unremarkable except as noted in HPI and below Physical exam (Primary Care) Vital Signs: Last Vital Signs Temp 97.8 F 12/01/23 10:54 Pulse 98 12/01/23 10:54 Resp 15 12/01/23 10:54 BP 126/80 12/01/23 10:54 Pulse Ox 98 12/01/23 10:54 Oxygen Delivery Method Room Air 12/01/23 10:54 BMI result Body Mass Index 45.4 BMI Assessment/Plan discussion: High BMI High, discussed plan: lifestyle Tobacco/Smoking Status: Tobacco use Status Tobacco use date assessed 11/03/23 12/01/23 11:05 Patient Tobacco Use Status Former Tobacco user 12/01/23 11:05 Tobacco use type Cigarette 12/01/23 11:05 e-Cigarette/Vaping Use Never Used 12/01/23 11:05 Thrive Assessment: Date of Thrive Assessment Date Thrive assessed 08/18/23 12/01/23 11:05 Const Other: Awake alert oriented Mood elevated, tangential speech Mucous membranes moist Lung sounds clear to auscultation bilat regular rate and rhythm No edema BLE Generally tremulous, unable to hold anything in her hands, repeating herself and not as mentally sharp as previous visits Assessment and Plan Assessment & Plan (1) Hypomagnesemia: Comment: from today show normal electrolytes, BUN 21, creatinine 0.84, EGFR greater than 60, random glucose of 134, normal calcium, low phosphorus at 2.4, low magnesium at 1.4, normal LFTs, normal B12, elevated parathyroid hormone at 121 repeat magnesium lower 1.3 she is having tremors and diarrhea from oral magnesium Sent to hospital for evaluation and treatment Code(s): E83.42 - Hypomagnesemia (2) DM (diabetes mellitus), type 2 with renal complications: Comment: On metformin ER 500 mg p.o. b.i.d.. Hemoglobin A1c 6.3% [facility] 10/2023 RX for boost given to her today and MA asked to fax as requested from [facility] Code(s): E11.29 - Type 2 diabetes mellitus with other diabetic kidney complication Qualifiers: Chronic kidney disease stage: stage 3 (moderate) Chronic kidney disease stage 3 subtype: stage 3a (GFR 45-59) Diabetes mellitus complication detail: with chronic kidney disease Diabetes mellitus dust mop maker insulin use: without senior living use Qualified Code(s): E11.22 - Type 2 diabetes mellitus with diabetic chronic kidney disease; N18.31 - Chronic kidney disease, stage 3a (3) Recurrent falls: Comment: Likely due to hypomagnesemia, sent to hospital for evaluation and treatment. Code(s): R29.6 - Repeated falls (4) Hypophosphatemia due to chronic kidney disease: Comment: from today show normal electrolytes, BUN 21, creatinine 0.84, EGFR greater than 60, random glucose of 134, normal calcium, low phosphorus at 2.4, low magnesium at 1.4, normal LFTs, normal B12, elevated parathyroid hormone at 121, A1c 6.3% A phosphorus normalized however results today returned low. Sent to the hospital for evaluation and treatment Code(s): E83.39 - Other disorders of phosphorus metabolism; N18.9 - Chronic kidney disease, unspecified Plan This note is constructed using voice recognition software. While every effort has been made to ensure accuracy in boring machine operator helper, still errors may have been included Sometimes, these errors may affect the content or meaning of the given sentence . Total time spent caring for the patient today was 60 minutes. This includes time spent before the visit reviewing the chart, time spent during the visit, and time spent after the visit on documentation Medications: New nut.tx.gluc intol,lf,soy-fiber 0.07-0.8 gram-kcal/mL (Boost Glucose Control) 1 ea PO DAILY 7,110 mL 12RF E11.22 - Type 2 diabetes mellitus with diabetic chronic kidney disease, N18.31 - Chronic kidney disease, stage 3a nut.tx.gluc intol,lf,soy-fiber 0.07-0.8 gram-kcal/mL (Boost Glucose Control) 1 ea PO DAILY 7,110 mL 12RF E11.22 - Type 2 diabetes mellitus with diabetic chronic kidney disease, N18.31 - Chronic kidney disease, stage 3a Patient Instructions: Expect called to [facility] at 1150 - spoke to PA. Warm hand off given. Advised to schedule follow up with me for hospital discharge follow up. Coding Level of Care Code Est Pt Level 5 (48407) Complex EM visit Add On G2211 Diagnoses Hypomagnesemia E83.42 Type 2 diabetes mellitus with stage 3a chronic kidney disease, without long-term current use of insulin E11.22; N18.31 Chronic kidney disease stage: stage 3 (moderate) Chronic kidney disease stage 3 subtype: stage 3a (GFR 45-59) Diabetes mellitus complication detail: with chronic kidney disease Diabetes mellitus senior living insulin use: without senior living use Recurrent falls R29.6 Hypophosphatemia due to chronic kidney disease E83.39; N18.9
== END 2023-12-01 15:27 | disposition home or self-care (01) ==
PROVIDERS: PCP Nurse Practitioner Family; Visit Provider Nurse Practitioner Family
DX: E83.42 Hypomagnesemia (principal); E11.22 Type 2 diabetes mellitus with diabetic chronic kidney disease; N18.31 Chronic kidney disease, stage 3a; R29.6 Repeated falls; E83.39 Other disorders of phosphorus metabolism
CPT/HCPCS: 99215; G2211; G2212

== ENCOUNTER 2023-12-01 12:47 | Emergency (ER) | payer OTHER, SELFPAY ==
--- NOTE | ~2023-12-01 | XR_ITS ---
EXAMINATION: XR CHEST CLINICAL INFORMATION: Dyspnea. COMPARISON: None available. TECHNIQUE: Frontal view of the chest was obtained. FINDINGS: Normal appearance of the cardiomediastinal silhouette. No focal consolidation, pleural effusion or pneumothorax. No acute osseous findings. Visualized upper abdomen is within normal limits. XR/XR chest 1V IMPRESSION: No acute cardiopulmonary findings.
--- NOTE | 2023-12-01 12:53 | ED_ITS ---
<Statement entered by Gabino Trimble MD - 12/01/23 20:31> Duplicate note please look my full medical note for detail regarding this visit. HPI - General Adult General Chief complaint: Recheck/Abnormal Lab/Rx Stated complaint: magnesium dropped ? sent by pcp Time Seen by Provider: 12/01/23 14:28 Related Data Home Medications ?Medication ?Instructions ?Recorded ?Confirmed furosemide 20 mg tablet 20 mg PO DAILY PRN 08/18/23 12/01/23 Previous Rx's ?Medication ?Instructions ?Recorded albuterol sulfate 90 mcg/actuation 2 puff inhalation Q4-6H PRN 08/18/23 aerosol inhaler shortness of breath or wheezing 30 days #8.5 grams nitroglycerin 0.4 mg sublingual 0.4 mg sublingual Q5M PRN chest 08/18/23 tablet pain 30 days #30 tabs omeprazole 20 mg tablet,delayed 20 mg PO DAILY #90 tabs 09/01/23 release tiotropium bromide 2.5 2 inh inhalation QAM 30 days #4 11/03/23 mcg/actuation mist for inhalation grams (Spiriva Respimat) magnesium oxide 200 mg PO BID #14 tabs 11/09/23 metformin 500 mg tablet,extended 500 mg PO BID 90 days #180 tabs 11/22/23 release 24 hr magnesium chloride 71.5 mg 71.5 mg PO BID #30 tabs 12/01/23 (magnesium chloride) tablet,delayed release (Slow-Mag) nutrition tx glu 1 ea PO DAILY #7,110 mL 12/01/23 intol,lac-free,soy-fiber 0.07 gram-0.8 kcal/mL liquid (Boost Glucose Control) Allergies Allergy/AdvReac Type Severity Reaction Status Date / Time iodine Allergy Severe Anaphylaxis Verified 12/01/23 12:58 seafood Allergy Severe Anaphylaxis Verified 12/01/23 12:58 yellow dye Allergy Severe Seizure Verified 12/01/23 12:58 zine Allergy Severe seizures Uncoded 11/03/23 10:36 [facility] Past Medical History Medical History Uterine cancer Bipolar 1 disorder Depression Anxiety Peptic ulcer GERD (gastroesophageal reflux disease) Back injury Osteoporosis Diabetes Arthritis Stroke COPD (chronic obstructive pulmonary disease) Surgical History H/O right heart catheterization Hx of cholecystectomy H/O hernia repair H/O: hysterectomy Hx of appendectomy H/O lumpectomy Family History Family History Mother Breast cancer Bone cancer Father Diabetes Cardiovascular disease Maternal Grandmother High blood pressure Diabetes Cardiovascular disease Social History Social History Housing: Other (M) Housing Other:: Mobile Home Patient Tobacco Use Status: Former Tobacco user Tobacco use type: Cigarette Cigarette Packs Per Day: 3 Cigarettes Per Day: 60 Years Smoked: 30 Smoked in Last 30 Days: No e-Cigarette/Vaping Use: Never Used Use of substances other than those prescribed or required for medical reasons: No Advance Directives: No Advance Directives Information Provided: No service: No Current occupational status: retired Cognitive needs: No Hearing needs: Yes Vision needs: No Physical Exam ED Vital Signs: Vital Signs - 24 hr 12/01/23 12:55 12/01/23 14:50 12/01/23 18:31 Temperature 97.9 F 98.2 F 98.5 F Pulse Rate 80 90 74 Respiratory Rate 20 15 20 Blood Pressure 155/93 H 180/90 H 144/75 H Pulse Oximetry 99 96 98 Oxygen Delivery Method Room Air Room Air Room Air BMI result Body Mass Index 46.5 Course Course Course Narrative: This is a rapid medical exam performed by Mele Quigley NP: Additional HPI, ROS, PE not included below will be deferred to primary provider. Patient is a 68-year-old female with history of hyperparathyroidism, hypomagnesemia, CKD, KHRIS, T2DM, GERD, COPD, bipolar 1 d/o presenting to the ED with diarrhea for the past week, increased tremors, states was told by PCP that her magnesium was low. Has been taking supplements, had Mg redrawn this am but not resulted yet. Used immodium for diarrhea without relief. Also complains of migraine with photophobia. Multiple recent falls due to tremors, feels unable to manage at home. Plan: EKG, labs, UA Reevaluation(s) Reevaluation #1: Headache is improved, tremors have improved. Completing now magnesium infusion, addendum infusion will recheck magnesium and reassess. Time: 16:04 Medications Administered Discontinued Medications Generic Name Dose Route Start Last Admin Trade Name Kate PRN Reason Stop Dose Admin Acetaminophen 975 mg 12/01/23 15:34 12/01/23 16:28 Acetaminophen 325 Mg Tablet PO 12/01/23 15:35 975 mg ONCE ONE Administration Magnesium Sulfate 2 gm in 50 mls @ 25 mls/hr 12/01/23 14:34 12/01/23 17:21 Magnesium Sulfate/H2o IV 12/01/23 16:33 Infused ONCE ONE Infusion Medical Decision Making Lab Data 12/01/23 13:17 12/01/23 13:17 Labs: Lab Results 12/01/23 12/01/23 12/01/23 Range/Units 13:17 14:40 16:59 WBC 8.3 (4.8-10.8) X10*3/uL RBC 4.38 (4.20-5.50) X10*6/uL Hgb 12.3 (12.0-16.0) g/dl Hct 34.4 L (37.0-47.0) % MCV 78.5 L (80.0-98.0) fL MCH 28.1 (27.0-33.0) pg MCHC 35.8 H (31.0-35.0) g/dl RDW 13.7 (11.0-16.0) % Plt Count 264 (160-400) X10*3/uL MPV 10.5 (9.4-12.3) fL Immature Gran % (Auto) 0.2 (0.0-0.4) % Neut % (Auto) 62.2 (45-73) % Lymph % (Auto) 32.1 (20-40) % [place] % (Auto) 4.1 (2-11) % Eos % (Auto) 0.8 (0-4) % Baso % (Auto) 0.6 (0-2) % Lymph # (Auto) 2.7 (1.2-4.9) X10*3/uL [place] # (Auto) 0.3 (0.1-1.2) X10*3/uL Eos # (Auto) 0.1 (0.0-0.4) X10*3/uL Baso # (Auto) 0.1 (0.0-0.2) X10*3/uL Abs Immat Gran (auto) 0.02 (0.00-0.03) X10*3/uL Absolute Neuts (auto) 5.2 (2.0-8.3) x10*3/uL Absolute Nucleated RBC 0.000 (0.0-0.012) X10*3/uL Nucleated RBC % (auto) 0.0 (0.0-0.2) /100WBC PT 10.7 L (11.1-13.3) SEC INR 0.9 (0.9-1.1) Sodium 138 (135-145) mmol/L Potassium 4.3 (3.3-5.1) mmol/L Chloride 105 (96-108) mmol/L Carbon Dioxide 23 (22-29) mmol/L Anion Gap 14 (12-20) BUN 18 H (9-16) mg/dL Creatinine 1.05 (0.5-1.4) mg/dL Estim Creat Clear Calc 59.1 Estimated GFR 52 Random Glucose 159 H (60-115) mg/dL Calcium 10.7 H (8.4-10.2) mg/dL Magnesium 1.3 L* 1.9 (1.6-2.6) mg/dL Total Bilirubin 0.4 (0.0-1.0) mg/dL AST 16 (5-31) U/L ALT 11 (0-31) U/L Alkaline Phosphatase 95 (39-117) U/L Total Protein 7.6 (6.5-8.0) g/dL Albumin 4.2 (3.5-5.0) g/dL Urine Color Yellow Urine Appearance Clear Urine pH 5.5 (5.0-9.0) Ur Specific [place] 1.010 (1.005-1.025) Urine Protein 30 (1+) H (Neg-Trace) mg/dL Urine Glucose (UA) Negative (Negative) mg/dL Urine Ketones Negative (Negative) mg/dL Urine Blood Negative (Negative) Urine Nitrite Negative (Negative) Ur Leukocyte Esterase Trace H (Negative) Urine RBC 0-2 (0-2) /HPF Urine WBC 0-5 (0-5) /HPF Ur Squamous Epith Cells 0-2 (0-2) /HPF Urine Bacteria None Seen (None Seen) Hyaline Casts 0-2 (0-2) /LPF Influenza Type A (PCR) NEGATIVE (Negative) Influenza Type B (PCR) NEGATIVE (Negative) RSV RNA Qual (PCR) NEGATIVE (Negative) SARS-CoV-2 RNA (RT-PCR) NEGATIVE (Negative) Discharge Plan Discharge Clinical Impression: Acute hypokalemia, Headache Patient Disposition: Home, Self-Care Additional Instructions: You were seen in the emergency room for low magnesium. This was repleted with IV infusion. At this time you do not require to be admitted to the hospital and likely your low magnesium was secondary to the or recent episodes of diarrhea. At home you can increase the dose of Slow mag tablets twice a day for the next 7 days, you need to follow-up then with your primary care physician to recheck your magnesium level. If your symptoms represent return to the emergency room for re-evaluation. Prescriptions: New Slow-Mag 71.5 mg tablet,delayed release (DR/EC) 71.5 mg PO BID Qty: 30 0RF No Action magnesium oxide 200 mg magnesium tablet 200 mg PO BID Qty: 14 0RF metformin 500 mg tablet extended release 24 hr 500 mg PO BID 90 Days Qty: 180 0RF furosemide 20 mg tablet 20 mg PO DAILY PRN albuterol sulfate 90 mcg/actuation HFA aerosol inhaler 2 puff inhalation Q4-6H PRN (Reason: shortness of breath or wheezing) 30 Days Qty: 8.5 0RF nitroglycerin 0.4 mg tablet, sublingual 0.4 mg sublingual Q5M PRN (Reason: chest pain) 30 Days Qty: 30 0RF Rx Instructions: do not exceed 3 doses per episode Boost Glucose Control 0.07-0.8 gram-kcal/mL liquid 1 ea PO DAILY Qty: 7110 12RF omeprazole 20 mg tablet,delayed release (DR/EC) 20 mg PO DAILY Qty: 90 1RF Spiriva Respimat 2.5 mcg/actuation mist 2 inh inhalation QAM 30 Days Qty: 4 3RF Interventions: ED Discharge Assessment Last Done: 12/01/23 18:31 Discharge Date/Time: 12/01/23 18:32 Print Language: Icelandic
[2023-12-01 12:55] VITALS: BP 155/93; PULSE 80; RESP 20; TEMP 36.6; O2SAT 99; BMI 46.5
--- NOTE | 2023-12-01 12:57 | ECG_ITS ---
Test Reason : cp Blood Pressure : / mmHG Vent. Rate : 088 BPM Atrial Rate : 088 BPM P-R Int : 126 ms QRS Dur : 084 ms QT Int : 358 ms P-R-T Axes : 047 -21 058 degrees QTc Int : 433 ms Normal sinus rhythm Normal ECG No previous ECGs available Referred By: Odilia Quigley Electronically Signed By:Roman Marshall
[2023-12-01 13:22] LABS: MANUAL DIFF FLAG NO
[2023-12-01 13:31] LABS: Basophils Absolute Auto 0.1 X10*3/uL (0.0-0.2); Basophils Percent Auto 0.6 % (0-2); Eosinophils Absolute Auto 0.1 X10*3/uL (0.0-0.4); Eosinophils Percent Auto 0.8 % (0-4); Hematocrit 34.4 % (37.0-47.0); Hemoglobin 12.3 g/dl (12.0-16.0); Imm Gran Abs Auto 0.02 X10*3/uL (0.00-0.03); Imm Gran Pct Auto 0.2 % (0.0-0.4); Lymphocytes Absolute Auto 2.7 X10*3/uL (1.2-4.9); Lymphocytes Percent Auto 32.1 % (20-40); Mean Corpuscular HGB Conc 35.8 g/dl (31.0-35.0); Mean Corpuscular Hemoglobin 28.1 pg (27.0-33.0); Mean Corpuscular Volume 78.5 fL (80.0-98.0); Mean Platelet Volume 10.5 fL (9.4-12.3); Monocytes Absolute Auto 0.3 X10*3/uL (0.1-1.2); Monocytes Percent Auto 4.1 % (2-11); Neutrophils Absolute Auto 5.2 x10*3/uL (2.0-8.3); Neutrophils Percent Auto 62.2 % (45-73); Platelet Count 264 X10*3/uL (160-400); Red Blood Count 4.38 X10*6/uL (4.20-5.50); Red Cell Distribution Width 13.7 % (11.0-16.0); White Blood Count 8.3 X10*3/uL (4.8-10.8)
[2023-12-01 13:39] LABS: INTERNATIONAL NORM RATIO 0.9 (0.9-1.1); Prothrombin Time 10.7 SEC (11.1-13.3)
[2023-12-01 13:55] LABS: Alanine Aminotransferase 11 U/L (0-31); Albumin Level 4.2 g/dL (3.5-5.0); Alkaline Phosphatase 95 U/L (39-117); Anion Gap 14 (12-20); Aspartate Amino Transferase 16 U/L (5-31); Bilirubin Total 0.4 mg/dL (0.0-1.0); Blood Urea Nitrogen 18 mg/dL (9-16); Calcium 10.7 mg/dL (8.4-10.2); Carbon Dioxide 23 mmol/L (22-29); Chloride 105 mmol/L (96-108); Creatinine Clr Calc Pharmacy 59.1; Estimated Glomerular Filt Rate 52; Glucose Random 159 mg/dL (60-115); Magnesium 1.3 mg/dL (1.6-2.6); Potassium 4.3 mmol/L (3.3-5.1); Sodium 138 mmol/L (135-145); Total Protein 7.6 g/dL (6.5-8.0)
[2023-12-01 14:01] LABS: Influenza A PCR NEGATIVE (Negative); Influenza B PCR NEGATIVE (Negative); Resp Syncy Virus RNA Qual PCR NEGATIVE (Negative); SARS COV2 PCR INHOUSE NEGATIVE (Negative)
[2023-12-01 14:47] LABS: Appearance Urine Clear; Color Urine Yellow; Glucose Urine UA Negative (Negative); Leukocyte Esterase Urine Trace (Negative); Nitrite Urine Negative (Negative); PH 5.5 (5.0-9.0); UMIC TRIGGER UACC YES; Urine Blood Negative (Negative); Urine Ketones Negative (Negative); Urine Protein 30 (1+) mg/dL (Neg-Trace)
[2023-12-01 14:50] VITALS: BP 180/90; PULSE 90; RESP 15; TEMP 36.8; O2SAT 96
[2023-12-01 14:50] LABS: Bacteria Urine None Seen (None Seen); Hyaline Casts Urine 0-2 /LPF (0-2); RBC Urine 0-2 /HPF (0-2); Squamous Epithelial Cell Urine 0-2 /HPF (0-2); WBC Urine 0-5 /HPF (0-5)
--- NOTE | 2023-12-01 14:56 | ED_ITS ---
HPI - General Adult General Chief complaint: Recheck/Abnormal Lab/Rx Stated complaint: magnesium dropped ? sent by pcp Time Seen by Provider: 12/01/23 14:28 Source: patient Limitations: no limitations History of Present Illness HPI narrative: 68 years old with past medical history of chronic hypomagnesemia that failed outpatient repletion, hypophosphatemia, hyperparathyroidism, CKD stage 3, diabetes type 2, GERD, bipolar disorder, COPD, diabetes, cirrhosis presents to the emergency room sent by her primary care doctor after outpatient workup showed magnesium 1.3. Patient reports that over the past week she has been having frequent episodes of nonbloody watery diarrhea and that her tremors that are present at baseline at worsened. Patient also reports 3 falls over the past week. Patient is concerned that in a few weeks she is going to go live by herself (at this time he lives with her sister) and she is afraid that she may fall again. Patient denies chest pain, abdominal pain reports nausea but no vomiting Reports that over the past few days she felt more short of breath for minimal exertion. No cough chills or fever. Related Data Home Medications ?Medication ?Instructions ?Recorded ?Confirmed furosemide 20 mg tablet 20 mg PO DAILY PRN 08/18/23 12/01/23 Previous Rx's ?Medication ?Instructions ?Recorded albuterol sulfate 90 mcg/actuation 2 puff inhalation Q4-6H PRN 08/18/23 aerosol inhaler shortness of breath or wheezing 30 days #8.5 grams nitroglycerin 0.4 mg sublingual 0.4 mg sublingual Q5M PRN chest 08/18/23 tablet pain 30 days #30 tabs omeprazole 20 mg tablet,delayed 20 mg PO DAILY #90 tabs 09/01/23 release tiotropium bromide 2.5 2 inh inhalation QAM 30 days #4 11/03/23 mcg/actuation mist for inhalation grams (Spiriva Respimat) magnesium oxide 200 mg PO BID #14 tabs 11/09/23 metformin 500 mg tablet,extended 500 mg PO BID 90 days #180 tabs 11/22/23 release 24 hr magnesium chloride 71.5 mg 71.5 mg PO BID #30 tabs 12/01/23 (magnesium chloride) tablet,delayed release (Slow-Mag) nutrition tx glu 1 ea PO DAILY #7,110 mL 12/01/23 intol,lac-free,soy-fiber 0.07 gram-0.8 kcal/mL liquid (Boost Glucose Control) Allergies Allergy/AdvReac Type Severity Reaction Status Date / Time iodine Allergy Severe Anaphylaxis Verified 12/01/23 12:58 seafood Allergy Severe Anaphylaxis Verified 12/01/23 12:58 yellow dye Allergy Severe Seizure Verified 12/01/23 12:58 zine Allergy Severe seizures Uncoded 11/03/23 10:36 Review of Systems 2 Review of Systems: Yes all other systems are reviewed and are negative [facility] Past Medical History Medical History Uterine cancer Bipolar 1 disorder Depression Anxiety Peptic ulcer GERD (gastroesophageal reflux disease) Back injury Osteoporosis Diabetes Arthritis Stroke COPD (chronic obstructive pulmonary disease) Surgical History H/O right heart catheterization Hx of cholecystectomy H/O hernia repair H/O: hysterectomy Hx of appendectomy H/O lumpectomy Family History Family History Mother Breast cancer Bone cancer Father Diabetes Cardiovascular disease Maternal Grandmother High blood pressure Diabetes Cardiovascular disease Social History Social History Housing: Other (M) Housing Other:: Mobile Home Patient Tobacco Use Status: Former Tobacco user Tobacco use type: Cigarette Cigarette Packs Per Day: 3 Cigarettes Per Day: 60 Years Smoked: 30 Smoked in Last 30 Days: No e-Cigarette/Vaping Use: Never Used Use of substances other than those prescribed or required for medical reasons: No Advance Directives: No Advance Directives Information Provided: No service: No Current occupational status: retired Cognitive needs: No Hearing needs: Yes Vision needs: No Physical Exam ED Vital Signs: Vital Signs - 24 hr 12/01/23 12:55 12/01/23 14:50 Temperature 97.9 F 98.2 F Pulse Rate 80 90 Respiratory Rate 20 15 Blood Pressure 155/93 H 180/90 H Pulse Oximetry 99 96 Oxygen Delivery Method Room Air Room Air BMI result Body Mass Index 46.5 General: Alert, Not in Distress, tremor at rest worsened by movement Skin: No rash, warm HEENT: Atraumatic, No Exudate or Pharyngeal Erythema Resp: Normal Breath sounds bilaterally Cardio: Regular rate and Rhythm, Normal S1, S2 ABD: Abd soft, non tender, no guarding or rebound. Normal Bowel sounds. : No cva tenderness Neuro: Alert, oriented x4, PERRL Strenght 5/5 on all extremities Sensation is preserved in both lower and upper extremities Index to nose: normal Cranial Nerves II-XII grossly intact No dysarthria, or aphasia No neglet. Visual arellano are normal bilaterally Psych: Cooperative, NO SI Course Reevaluation(s) Reevaluation #1: Repeated magnesium check showed magnesium 1.9, patient reports resolution of her headache and tremors. Patient ambulated while in the emergency room with a cane which represents her baseline, she feels safe to be discharged, tolerated p.o.. At this time I do not think patient requires further observation or admission. Will increase her dose of Slow-Mag at home to 1 tablets twice a day. Patient okay with plan Return precautions discussed with patient at bedside. Will DC home Time: 17:50 Medications Administered Discontinued Medications Generic Name Dose Route Start Last Admin Trade Name Freq PRN Reason Stop Dose Admin Acetaminophen 975 mg 12/01/23 15:34 12/01/23 16:28 Acetaminophen 325 Mg Tablet PO 12/01/23 15:35 975 mg ONCE ONE Administration Magnesium Sulfate 2 gm in 50 mls @ 25 mls/hr 12/01/23 14:34 12/01/23 17:21 Magnesium Sulfate/H2o IV 12/01/23 16:33 Infused ONCE ONE Infusion Medical Decision Making Medical Decision Making [facility] Narrative: Patient presented to the emergency room for hypomagnesemia. In addition she is reporting diarrhea which however appears to be resolved today, and shortness of breath. Plan is to replete magnesium, obtain chest x-ray, rest of the lab work are unchanged from prior. I have concern of patient's ability to walk since the recent falls so after the magnesium is repleted we will try to ambulate the patient but if patient is stable I think patient should be considered for admission. Admission/Observation Consideration of admission/observation: Escalation of care including admission/observation considered Lab Data [facility] Lab Attestation statement: I reviewed the patient's lab results. 12/01/23 13:17 12/01/23 13:17 Labs: Lab Results 12/01/23 12/01/2324 Range/Units 13:17 14:40 16:59 WBC 8.3 (4.8-10.8) X10*3/uL RBC 4.38 (4.20-5.50) X10*6/uL Hgb 12.3 (12.0-16.0) g/dl Hct 34.4 L (37.0-47.0) % MCV 78.5 L (80.0-98.0) fL MCH 28.1 (27.0-33.0) pg MCHC 35.8 H (31.0-35.0) g/dl RDW 13.7 (11.0-16.0) % Plt Count 264 (160-400) X10*3/uL MPV 10.5 (9.4-12.3) fL Immature Gran % (Auto) 0.2 (0.0-0.4) % Neut % (Auto) 62.2 (45-73) % Lymph % (Auto) 32.1 (20-40) % [place] % (Auto) 4.1 (2-11) % Eos % (Auto) 0.8 (0-4) % Baso % (Auto) 0.6 (0-2) % Lymph # (Auto) 2.7 (1.2-4.9) X10*3/uL [place] # (Auto) 0.3 (0.1-1.2) X10*3/uL Eos # (Auto) 0.1 (0.0-0.4) X10*3/uL Baso # (Auto) 0.1 (0.0-0.2) X10*3/uL Abs Immat Gran (auto) 0.02 (0.00-0.03) X10*3/uL Absolute Neuts (auto) 5.2 (2.0-8.3) x10*3/uL Absolute Nucleated RBC 0.000 (0.0-0.012) X10*3/uL Nucleated RBC % (auto) 0.0 (0.0-0.2) /100WBC PT 10.7 L (11.1-13.3) SEC INR 0.9 (0.9-1.1) Sodium 138 (135-145) mmol/L Potassium 4.3 (3.3-5.1) mmol/L Chloride 105 (96-108) mmol/L Carbon Dioxide 23 (22-29) mmol/L Anion Gap 14 (12-20) BUN 18 H (9-16) mg/dL Creatinine 1.05 (0.5-1.4) mg/dL Estim Creat Clear Calc 59.1 Estimated GFR 52 Random Glucose 159 H (60-115) mg/dL Calcium 10.7 H (8.4-10.2) mg/dL Magnesium 1.3 L* 1.9 (1.6-2.6) mg/dL Total Bilirubin 0.4 (0.0-1.0) mg/dL AST 16 (5-31) U/L ALT 11 (0-31) U/L Alkaline Phosphatase 95 (39-117) U/L Total Protein 7.6 (6.5-8.0) g/dL Albumin 4.2 (3.5-5.0) g/dL Urine Color Yellow Urine Appearance Clear Urine pH 5.5 (5.0-9.0) Ur Specific [place] 1.010 (1.005-1.025) Urine Protein 30 (1+) H (Neg-Trace) mg/dL Urine Glucose (UA) Negative (Negative) mg/dL Urine Ketones Negative (Negative) mg/dL Urine Blood Negative (Negative) Urine Nitrite Negative (Negative) Ur Leukocyte Esterase Trace H (Negative) Urine RBC 0-2 (0-2) /HPF Urine WBC 0-5 (0-5) /HPF Ur Squamous Epith Cells 0-2 (0-2) /HPF Urine Bacteria None Seen (None Seen) Hyaline Casts 0-2 (0-2) /LPF Influenza Type A (PCR) NEGATIVE (Negative) Influenza Type B (PCR) NEGATIVE (Negative) RSV RNA Qual (PCR) NEGATIVE (Negative) SARS-CoV-2 RNA (RT-PCR) NEGATIVE (Negative) Independent Interpretation I performed an independent interpretation of an: EKG (I personally interpreted reviewed the patient's EKG: Normal sinus rhythm) and Plain X-Ray (I personally reviewed and interpreted the patient's chest x-ray: Normal chest x-ray) Discharge Plan Discharge Clinical Impression: Acute hypokalemia, Headache Patient Disposition: Home, Self-Care Additional Instructions: You were seen in the emergency room for low magnesium. This was repleted with IV infusion. At this time you do not require to be admitted to the hospital and likely your low magnesium was secondary to the or recent episodes of diarrhea. At home you can increase the dose of Slow mag tablets twice a day for the next 7 days, you need to follow-up then with your primary care physician to recheck your magnesium level. If your symptoms represent return to the emergency room for re-evaluation. Prescriptions: New Slow-Mag 71.5 mg tablet,delayed release (DR/EC) 71.5 mg PO BID Qty: 30 0RF No Action magnesium oxide 200 mg magnesium tablet 200 mg PO BID Qty: 14 0RF metformin 500 mg tablet extended release 24 hr 500 mg PO BID 90 Days Qty: 180 0RF furosemide 20 mg tablet 20 mg PO DAILY PRN albuterol sulfate 90 mcg/actuation HFA aerosol inhaler 2 puff inhalation Q4-6H PRN (Reason: shortness of breath or wheezing) 30 Days Qty: 8.5 0RF nitroglycerin 0.4 mg tablet, sublingual 0.4 mg sublingual Q5M PRN (Reason: chest pain) 30 Days Qty: 30 0RF Rx Instructions: do not exceed 3 doses per episode Boost Glucose Control 0.07-0.8 gram-kcal/mL liquid 1 ea PO DAILY Qty: 7110 12RF omeprazole 20 mg tablet,delayed release (DR/EC) 20 mg PO DAILY Qty: 90 1RF Spiriva Respimat 2.5 mcg/actuation mist 2 inh inhalation QAM 30 Days Qty: 4 3RF Print Language: Belarusian
[2023-12-01] MEDS: Magnesium Sulfate/H2O 2 GM/50 ML PIGGYBACK IV (15:05)
--- NOTE | 2023-12-01 15:20 | PC.NURSE ---
a&ox4. vss and up to date. nsr on the ironer sock. pt reports diarrhea/fevers/tremors/PELAYO/sensitivity to light x 1 month. pt states she went to pcp this morning d/t increase in tremors x 1 week. (patient has tremors baseline). pt had labs obtained via pcp where she was then advised to come in to the ED d/t low magnesium. 20gIV placed in the right AC - medication administered per provider order. no sob/wob noted. respirations even and unlabored. lights dimmed to promote patient comfort. pt waiting to have xray completed. plan of care ongoing. call kearney placed within reach.
[2023-12-01] MEDS: Acetaminophen 325 MG TABLET 975 MG PO (16:28)
--- NOTE | 2023-12-01 16:29 | PC.NURSE ---
pt c/o 12/31 headache - medication administered per provider order. effectiveness pending.
--- NOTE | 2023-12-01 17:00 | PC.NURSE ---
repeat labs obtained/sent to lab by [facility]. plan of care ongoing.
[2023-12-01 17:23] LABS: Magnesium 1.9 mg/dL (1.6-2.6)
[2023-12-01 18:31] VITALS: BP 144/75; PULSE 74; RESP 20; TEMP 36.9; O2SAT 98
== END 2023-12-01 18:32 | disposition home or self-care (01) ==
PROVIDERS: Registered Nurse Emergency; Emergency Provider Student in an Organized Health Care Education/Training Program; PCP Nurse Practitioner Family
DX: E87.6 Hypokalemia (principal); R51.9 Headache, unspecified; R07.89 Other chest pain; Z03.818 Encounter for observation for suspected exposure to other biological agents ruled out; Z11.52 Encounter for screening for COVID-19; Z20.822 Contact with and (suspected) exposure to COVID-19; Z79.899 Other long term (current) drug therapy
CPT/HCPCS: 0241U; 36415; 71045; 80053; 81001; 83735; 84100; 85025; 85610; 87086; 93005; 96365; 96366; 99284; 99285; J3475

== ENCOUNTER → 2023-12-01 12:57 | Outpatient (BNV) | payer OTHER, SELFPAY | PROVIDERS: Emergency Provider Student in an Organized Health Care Education/Training Program; PCP Nurse Practitioner Family; Visit Provider Internal Medicine Cardiovascular Disease | DX: R07.9 Chest pain, unspecified (principal) | CPT/HCPCS: 93010 ==

== ENCOUNTER 2023-12-25 11:01 | Outpatient (AMB) | payer OTHER, SELFPAY ==
--- NOTE | 2023-12-25 11:37 | MHC.PC.OV ---
Vital Signs 12/25/23 11:40 Height 5 ft 1.5 in Weight 245 lb BMI 45.5 BP 138/84 Blood Pressure Location Lt brachial Position Sitting Respiration 18 Pulse 108 H Pulse Source Pulse Oximeter Temp 97.7 F Temp Source Oral Pulse Oximetry (%) 99 Oxygen Delivery Method Room Air Intake Visit Reasons: Shortness of breath Intake Note: Shortness of breath, ongoing for months, tremors, spasms. Resaw Carriage Operator Required: No Allergies iodine Allergy (Severe, Verified 12/25/23 11:38) Anaphylaxis seafood Allergy (Severe, Verified 12/25/23 11:38) Anaphylaxis yellow dye Allergy (Severe, Verified 12/25/23 11:38) Seizure zine Allergy (Severe, Uncoded 12/25/23 11:38) seizures Medication List - Last Reviewed 12/25/23 by Vanessa Clemons CMA albuterol sulfate 90 mcg/actuation 2 puffs inhalation Q4-6H PRN 30 days magnesium chloride (Slow-Mag) 71.5 mg PO BID metformin ER 500 mg PO BID 90 days nitroglycerin 0.4 mg sublingual Q5M PRN 30 days nut.tx.gluc intol,lf,soy-fiber 0.07-0.8 gram-kcal/mL (Boost Glucose Control) 1 ea PO DAILY Tobacco use date assessed: 11/03/23 Dental Screening Dental Screen Date: 11/03/23 HPI HPI Comments History of Present Illness Details 67-year-old female with bipolar disorder, depression, anxiety, peptic ulcer disease, GERD, osteoporosis, diabetes type 2, osteoarthritis, COPD, CKD 3a, proteinuria, coronary artery disease, renal mass, CVA with residual deficit (2006), left hemiparesis, diabetic peripheral neuropathy, history of DVT/PE on anti coag for short period of time Here today with complaints of shortness of breath. Reports that her Spiriva Respimat was not filled by the pharmacy stating a PA was needed. Unfortunately I have not received this paperwork as of yet however I will have my staff follow up. Her breathlessness and shortness of breath is no worse than usual. She continues to have tremors and cramps. Completed 2 weeks of Slow-Mag. Not taking any supplements. No longer having diarrhea. She has in a new apartment which is quite large. Having a hard time moving about from room to room. Continues to have falls and fears recurrent falls. Has a lifeline in the works. Would benefit from a bedside commode to use at night. Plan Check labs today Refer to renal to figure out the cause of her recurrent Hypomagnesium Refilled the Slow-Mag to be taken b.i.d. Prescription for bedside commode Staff to look into PA for Spiriva Respimat [facility] Medical History Uterine cancer Bipolar 1 disorder Depression Anxiety Peptic ulcer GERD (gastroesophageal reflux disease) Back injury Osteoporosis Diabetes Arthritis Stroke COPD (chronic obstructive pulmonary disease) Surgical History H/O right heart catheterization Hx of cholecystectomy H/O hernia repair H/O: hysterectomy Hx of appendectomy H/O lumpectomy Family History Mother Breast cancer Bone cancer Father Diabetes Cardiovascular disease Maternal Grandmother High blood pressure Diabetes Cardiovascular disease Social History Housing: Other (M) Housing Other:: Mobile Home Patient Tobacco Use Status: Former Tobacco user Tobacco use type: Cigarette Cigarette Packs Per Day: 3 Cigarettes Per Day: 60 Years Smoked: 30 e-Cigarette/Vaping Use: Never Used service: No Current occupational status: retired Cognitive needs: No Hearing needs: Yes Vision needs: No Questionnaire Thrive Questionnaire Date Thrive assessed: 08/18/23 GEETA-7 AMB Questionnaire GEETA-7 Date GEETA - 7 assessed: 08/18/23 Source: Developed by Drs. Gurjit White, Yahaira Kent, Yakov Helms and colleagues, with an educational talia from [employer]. Review of Systems Const All systems reviewed & are unremarkable except as noted in HPI and below Physical exam (Primary Care) Vital Signs: Last Vital Signs Temp 97.7 F 12/25/23 11:40 Pulse 108 H 12/25/23 11:40 Resp 18 12/25/23 11:40 BP 138/84 12/25/23 11:40 Pulse Ox 99 12/25/23 11:40 Oxygen Delivery Method Room Air 12/25/23 11:40 BMI result Body Mass Index 45.5 BMI Assessment/Plan discussion: High BMI High, discussed plan: lifestyle Tobacco/Smoking Status: Tobacco use Status Tobacco use date assessed 11/03/23 12/25/23 11:40 Patient Tobacco Use Status Former Tobacco user 12/25/23 11:40 Tobacco use type Cigarette 12/25/23 11:40 e-Cigarette/Vaping Use Never Used 12/25/23 11:40 Thrive Assessment: Date of Thrive Assessment Date Thrive assessed 08/18/23 12/25/23 11:40 Const Other: Awake alert oriented Mood elevated, tangential speech Mucous membranes moist Lung sounds clear to auscultation bilat regular rate and rhythm No edema BLE Generally tremulous,though not as bad as previous visit Mentation at baseline Assessment and Plan Assessment & Plan (1) COPD (chronic obstructive pulmonary disease): Comment: Currently only on albuterol. Reports she was on Advair in the past but this did not work for her. Plan: Start Spiriva 2.5 mcg 2 puffs 1 time per day. Advised to rinse mouth out after. Asked staff to fu on PA Former smoker ?? Lung cancer screening Code(s): J44.9 - Chronic obstructive pulmonary disease, unspecified Qualifiers: COPD type: chronic bronchitis Chronic bronchitis type: simple Qualified Code(s): J41.0 - Simple chronic bronchitis (2) Recurrent falls: Comment: Likely due to hypomagnesemia, has life line; new rx for commode to use at HS Code(s): R29.6 - Repeated falls (3) Hyperparathyroidism: Comment: from today show normal electrolytes, BUN 21, creatinine 0.84, EGFR greater than 60, random glucose of 134, normal calcium, low phosphorus at 2.4, low magnesium at 1.4, normal LFTs, normal B12, elevated parathyroid hormone at 121, A1c 6.3% i have sent in Rx for supplement to take for 7 days. 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: Comment: update labs - refer to Renal Code(s): E83.39 - Other disorders of phosphorus metabolism; N18.9 - Chronic kidney disease, unspecified (5) Hypomagnesemia: Comment: was supplemented with IV Mag recently in ED and sent home w/ slow mag she took BID as directed and ran out of refills update labs today, refill slow mag, refer to renal to eval cause Code(s): E83.42 - Hypomagnesemia (6) Osteoporosis: Code(s): M81.0 - Age-related osteoporosis without current pathological fracture Qualifiers: Osteoporosis type: age-related Presence of current pathological fracture: without current pathological fracture Qualified Code(s): M81.0 - Age-related osteoporosis without current pathological fracture Plan: This note is constructed using voice recognition software. While every effort has been made to ensure accuracy in notching press operator, still errors may have been included Sometimes, these errors may affect the content or meaning of the given sentence . Total time spent caring for the patient today was 54 minutes. This includes time spent before the visit reviewing the chart, time spent during the visit, and time spent after the visit on documentation Orders: Orders Phosphorus Today E21.3 - Hyperparathyroidism, unspecified, E83.39 - Other disorders of phosphorus metabolism, E83.42 - Hypomagnesemia, N18.9 - Chronic kidney disease, unspecified Magnesium Today E21.3 - Hyperparathyroidism, unspecified, E83.39 - Other disorders of phosphorus metabolism, E83.42 - Hypomagnesemia, N18.9 - Chronic kidney disease, unspecified Comprehensive Met. Panel Today E21.3 - Hyperparathyroidism, unspecified, E83.39 - Other disorders of phosphorus metabolism, E83.42 - Hypomagnesemia, N18.9 - Chronic kidney disease, unspecified Referrals Nephrology Referral E21.3 - Hyperparathyroidism, unspecified, E83.39 - Other disorders of phosphorus metabolism, E83.42 - Hypomagnesemia, N18.31 - Chronic kidney disease, stage 3a, N18.9 - Chronic kidney disease, unspecified Medications: New commode (bedside commode) As directed 1 ea 0RF J41.0 - Simple chronic bronchitis, M81.0 - Age-related osteoporosis without current pathological fracture, R29.6 - Repeated falls Refilled magnesium chloride (Slow-Mag) 71.5 mg PO BID 60 tabs 1RF Discontinued magnesium oxide Discontinued Reason: Doctor's Order 200 mg PO BID 14 tabs 0RF Patient Instructions: Plan Check labs today Refer to renal to figure out the cause of her recurrent Hypomagnesium Refilled the Slow-Mag to be taken b.i.d. Prescription for bedside commode Staff to look into [place] for Spiriva Respimat Coding Level of Care Code Est Pt Level 5 (16958) Diagnoses Simple chronic bronchitis J41.0 COPD type: chronic bronchitis Chronic bronchitis type: simple Recurrent falls R29.6 Hyperparathyroidism E21.3 Hypophosphatemia due to chronic kidney disease E83.39; N18.9 Hypomagnesemia E83.42 Age-related osteoporosis without current pathological fracture M81.0 Osteoporosis type: age-related Presence of current pathological fracture: without current pathological fracture
[2023-12-25 11:40] VITALS: BP 138/84; PULSE 108; RESP 18; TEMP 36.5; O2SAT 99; BMI 45.5
== END 2023-12-25 11:49 | disposition home or self-care (01) ==
PROVIDERS: PCP Nurse Practitioner Family; Visit Provider Nurse Practitioner Family
DX: J41.0 Simple chronic bronchitis (principal); E21.3 Hyperparathyroidism, unspecified; R29.6 Repeated falls; N18.9 Chronic kidney disease, unspecified; E83.42 Hypomagnesemia; M81.0 Age-related osteoporosis without current pathological fracture
CPT/HCPCS: 99215

== ENCOUNTER 2023-12-25 11:43 | Outpatient (REF) | payer OTHER, SELFPAY ==
[2023-12-25 18:06] LABS: Alanine Aminotransferase 14 U/L (0-31); Albumin Level 4.3 g/dL (3.5-5.0); Alkaline Phosphatase 86 U/L (39-117); Anion Gap 15 (12-20); Aspartate Amino Transferase 22 U/L (5-31); Bilirubin Total 0.4 mg/dL (0.0-1.0); Blood Urea Nitrogen 29 mg/dL (9-16); Calcium 10.1 mg/dL (8.4-10.2); Carbon Dioxide 21 mmol/L (22-29); Chloride 109 mmol/L (96-108); Estimated Glomerular Filt Rate 45; Glucose Random 298 mg/dL (60-115); Magnesium 1.2 mg/dL (1.6-2.6); Phosphorus 2.4 mg/dL (2.7-4.5); Potassium 3.5 mmol/L (3.3-5.1); Sodium 141 mmol/L (135-145); Total Protein 7.3 g/dL (6.5-8.0)
== END 2023-12-25 11:44 | disposition home or self-care (01) ==
LOC: HO.WFDLDS 11:43
PROVIDERS: Visit Provider Nurse Practitioner Family
DX: E21.3 Hyperparathyroidism, unspecified (principal); N18.9 Chronic kidney disease, unspecified
CPT/HCPCS: 36415; 80053; 83735; 84100

== ENCOUNTER 2023-12-25 15:33 | Observation (INO) | payer OTHER, SELFPAY ==
--- NOTE | ~2023-12-25 | XR_ITS ---
EXAMINATION: XR CHEST CLINICAL INFORMATION: Pain. COMPARISON: Chest x-ray 12/01/2023 TECHNIQUE: 2 views of the chest were obtained. FINDINGS: No significant abnormality is noted involving the heart, lungs, mediastinum, bony thorax or soft tissues. XR/XR chest 2V IMPRESSION: Unremarkable chest examination.
[2023-12-25 15:39] VITALS: BP 157/66; PULSE 98; RESP 22; TEMP 36.6; O2SAT 98; BMI 45.2
--- NOTE | 2023-12-25 15:41 | ED_ITS ---
HPI - General Adult General Chief complaint: General Medical Stated complaint: Copd sob tremors Time Seen by Provider: 12/25/23 18:24 Source: patient Mode of arrival: ambulatory Limitations: no limitations History of Present Illness HPI narrative: This is a 68-year-old woman with a past medical history of bipolar disorder, depression, anxiety, peptic ulcer disease, GERD, osteoporosis, type 2 diabetes mellitus, osteoarthritis, COPD, CKD, proteinuria, CAD, renal mass, CVA with residual deficit (2006), left hemiparesis, diabetic peripheral neuropathy, history of DVT/PE on anticoagulation for a short period of time, chronic hypomagnesemia, hypophosphatemia, hyperparathyroidism who presents for evaluation of muscle spasms and tremors. She states that for the last several days she has been having intermittent episodes of muscle spasms all over her body. She reports associated tremors when she is experiencing this sensation. She states that in this last happened her magnesium was found to be very low. She states that she was given magnesium and discharged home from the emergency room on November 30 with a prescription for magnesium. She reports that she ran out of this prescription 2 weeks ago. She states feeling as if her magnesium is low again. She reports eating and drinking normally. She states no dietary changes. She states taking her medications as prescribed. She states no fevers, chills, cough, chest pain, dyspnea, abdominal pain, nausea, vomiting, diarrhea, dysuria urinary frequency, back pain, leg pain, recent falls, trauma or head strike. Related Data Previous Rx's ?Medication ?Instructions ?Recorded nitroglycerin 0.4 mg sublingual 0.4 mg sublingual Q5M PRN chest 08/18/23 tablet pain 30 days #30 tabs metformin 500 mg tablet,extended 500 mg PO BID 90 days #180 tabs 11/22/23 release 24 hr nutrition tx glu 1 ea PO DAILY #7,110 mL 12/01/23 intol,lac-free,soy-fiber 0.07 gram-0.8 kcal/mL liquid (Boost Glucose Control) albuterol sulfate 90 mcg/actuation 2 puff inhalation Q4-6H PRN 12/25/23 aerosol inhaler shortness of breath or wheezing 30 days #8.5 grams commode (bedside commode) #1 ea 12/25/23 magnesium chloride 71.5 mg 71.5 mg PO BID #60 tabs 12/25/23 (magnesium chloride) tablet,delayed release (Slow-Mag) Allergies Allergy/AdvReac Type Severity Reaction Status Date / Time iodine Allergy Severe Anaphylaxis Verified 12/25/23 15:42 seafood Allergy Severe Anaphylaxis Verified 12/25/23 15:42 yellow dye Allergy Severe Seizure Verified 12/25/23 15:42 zine Allergy Severe seizures Uncoded 12/25/23 11:38 Review of Systems 2 Review of Systems: ROS as per HPI [facility] Past Medical History Medical History Uterine cancer Bipolar 1 disorder Depression Anxiety Peptic ulcer GERD (gastroesophageal reflux disease) Back injury Osteoporosis Diabetes Arthritis Stroke COPD (chronic obstructive pulmonary disease) Surgical History H/O right heart catheterization Hx of cholecystectomy H/O hernia repair H/O: hysterectomy Hx of appendectomy H/O lumpectomy Family History Family History Mother Breast cancer Bone cancer Father Diabetes Cardiovascular disease Maternal Grandmother High blood pressure Diabetes Cardiovascular disease Social History Social History Housing: Other (M) Housing Other:: Mobile Home Patient Tobacco Use Status: Former Tobacco user Tobacco use type: Cigarette Cigarette Packs Per Day: 3 Cigarettes Per Day: 60 Years Smoked: 30 e-Cigarette/Vaping Use: Never Used Advance Directives: No Advance Directives Information Provided: No service: No Current occupational status: retired Cognitive needs: No Hearing needs: Yes Vision needs: No Physical Exam ED Vital Signs: Vital Signs - 24 hr 12/25/23 15:39 12/25/23 18:34 Temperature 98 F 97.8 F Pulse Rate 98 94 Respiratory Rate 22 H 17 Blood Pressure 157/66 H 128/75 Pulse Oximetry 98 98 Oxygen Delivery Method Room Air Room Air BMI result Body Mass Index 45.2 Gen: NAD, AOx3 HEENT: NCAT, EOMI, normal conjunctiva CV: RRR Pulm: CTAB, no increased work of breathing GI: Soft, NTND, no rebound, guarding or rigidity Neuro: Grossly non focal Course Course Course Narrative: KALANI, this is a rapid medical exam performed by Jose Minor please refer to primary provider for complete H&P- 67-year-old female with past medical history significant for hyperparathyroidism, hypophosphatemia, chronic kidney disease, obstructive sleep apnea, COPD, diabetes, GERD, bipolar disorder presents for evaluation of shortness of breath and muscle spasms her legs. She believes her magnesium is low as this has happened in the past with similar symptoms. Her lungs are clear to auscultation. Plan for labs including magnesium, chest x-ray and EKG. Medical Decision Making Medical Decision Making [facility] Narrative: Differential diagnosis includes, but is not limited to muscle spasm, electrolyte abnormality. Patient is afebrile and hemodynamically stable on room air. Exam is benign and reassuring. I reviewed and interpreted labs, which are notable for hypomagnesemia of 1.2, hypophosphatemia of 2.4 and low normal potassium of 3.6. Patient's electrolyte abnormalities are repleted with 2 g IV magnesium sulfate x2, 10 mEq IV potassium chloride x1 and and 15 millimole of potassium phosphate x1. I reviewed and interpreted EKG, which is unremarkable for any acute findings. I discussed patient's case and management with admitting hospitalist Dr. Hobbs. Patient is admitted to hospitalist for continue electrolyte repletion and continued workup and management. Differential Diagnosis Differential Diagnoses: The differential diagnosis associated with the presentation includes Admission/Observation Consideration of admission/observation: Escalation of care including admission/observation considered Consult Healthcare Provider Management of the patient was discussed with: Hospitalist I discussed patient's case and management with admitting hospitalist Dr. Hobbs. Lab Data [facility] Lab Attestation statement: I reviewed the patient's lab results. 12/25/23 17:02 12/25/23 17:02 Labs: Lab Results 12/25/23 Range/Units 17:02 WBC 9.3 (4.8-10.8) X10*3/uL RBC 4.26 (4.20-5.50) X10*6/uL Hgb 12.1 (12.0-16.0) g/dl Hct 34.1 L (37.0-47.0) % MCV 80.0 (80.0-98.0) fL MCH 28.4 (27.0-33.0) pg MCHC 35.5 H (31.0-35.0) g/dl RDW 13.8 (11.0-16.0) % Plt Count 247 (160-400) X10*3/uL MPV 10.7 (9.4-12.3) fL Immature Gran % (Auto) 0.2 (0.0-0.4) % Neut % (Auto) 61.4 (45-73) % Lymph % (Auto) 33.5 (20-40) % [place] % (Auto) 4.1 (2-11) % Eos % (Auto) 0.4 (0-4) % Baso % (Auto) 0.4 (0-2) % Lymph # (Auto) 3.1 (1.2-4.9) X10*3/uL [place] # (Auto) 0.4 (0.1-1.2) X10*3/uL Eos # (Auto) 0.0 (0.0-0.4) X10*3/uL Baso # (Auto) 0.0 (0.0-0.2) X10*3/uL Abs Immat Gran (auto) 0.02 (0.00-0.03) X10*3/uL Absolute Neuts (auto) 5.7 (2.0-8.3) x10*3/uL Absolute Nucleated RBC 0.000 (0.0-0.012) X10*3/uL Nucleated RBC % (auto) 0.0 (0.0-0.2) /100WBC PT 10.7 L (11.1-13.3) SEC INR 0.9 (0.9-1.1) Sodium 142 (135-145) mmol/L Potassium 3.6 (3.3-5.1) mmol/L Chloride 114 H (96-108) mmol/L Carbon Dioxide 18 L (22-29) mmol/L Anion Gap 14 (12-20) BUN 32 H (9-16) mg/dL Creatinine 1.17 (0.5-1.4) mg/dL Estim Creat Clear Calc 51.6 Estimated GFR 46 Random Glucose 152 H (60-115) mg/dL Calcium 10.1 (8.4-10.2) mg/dL Magnesium 1.2 L* (1.6-2.6) mg/dL Total Bilirubin 0.2 (0.0-1.0) mg/dL AST 22 (5-31) U/L ALT 15 (0-31) U/L Alkaline Phosphatase 93 (39-117) U/L B-Natriuretic Peptide 20 (<100) pg/mL Total Protein 7.5 (6.5-8.0) g/dL Albumin 4.3 (3.5-5.0) g/dL Lipase 20 (8-78) U/L Influenza Type A (PCR) NEGATIVE (Negative) Influenza Type B (PCR) NEGATIVE (Negative) RSV RNA Qual (PCR) NEGATIVE (Negative) SARS-CoV-2 RNA (RT-PCR) NEGATIVE (Negative) Independent Interpretation I performed an independent interpretation of an: EKG Interpretation: EKG demonstrates sinus rhythm at 95 beats per minute, WA 118, QRS 86, QTC 452 Discharge Plan Discharge Clinical Impression: Hypomagnesemia, Hypophosphatemia Patient Disposition: Admitted As Inpatient Prescriptions: No Action metformin 500 mg tablet extended release 24 hr 500 mg PO BID 90 Days Qty: 180 0RF albuterol sulfate 90 mcg/actuation HFA aerosol inhaler 2 puff inhalation Q4-6H PRN (Reason: shortness of breath or wheezing) 30 Days Qty: 8.5 0RF nitroglycerin 0.4 mg tablet, sublingual 0.4 mg sublingual Q5M PRN (Reason: chest pain) 30 Days Qty: 30 0RF Rx Instructions: do not exceed 3 doses per episode Boost Glucose Control 0.07-0.8 gram-kcal/mL liquid 1 ea PO DAILY Qty: 7110 12RF Slow-Mag 71.5 mg tablet,delayed release (DR/EC) 71.5 mg PO BID Qty: 60 1RF (DME) bedside commode Kit See Rx Instructions .Route Qty: 1 0RF Rx Instructions: As directed Print Language: Armenian
--- NOTE | 2023-12-25 15:41 | ECG_ITS ---
Test Reason : SOB Blood Pressure : / mmHG Vent. Rate : 095 BPM Atrial Rate : 095 BPM P-R Int : 118 ms QRS Dur : 086 ms QT Int : 360 ms P-R-T Axes : 057 -11 031 degrees QTc Int : 452 ms Normal sinus rhythm Normal ECG When compared with ECG of 01-DEC-2023 13:10, No significant change was found Referred By: Deven Minor Electronically Signed By:VASILE LEBRON MD
[2023-12-25 17:06] LABS: MANUAL DIFF FLAG NO
[2023-12-25 17:09] LABS: Basophils Percent Auto 0.4 % (0-2); Eosinophils Percent Auto 0.4 % (0-4); Hematocrit 34.1 % (37.0-47.0); Hemoglobin 12.1 g/dl (12.0-16.0); Imm Gran Abs Auto 0.02 X10*3/uL (0.00-0.03); Imm Gran Pct Auto 0.2 % (0.0-0.4); Lymphocytes Absolute Auto 3.1 X10*3/uL (1.2-4.9); Lymphocytes Percent Auto 33.5 % (20-40); Mean Corpuscular HGB Conc 35.5 g/dl (31.0-35.0); Mean Corpuscular Hemoglobin 28.4 pg (27.0-33.0); Mean Platelet Volume 10.7 fL (9.4-12.3); Monocytes Absolute Auto 0.4 X10*3/uL (0.1-1.2); Monocytes Percent Auto 4.1 % (2-11); Neutrophils Absolute Auto 5.7 x10*3/uL (2.0-8.3); Neutrophils Percent Auto 61.4 % (45-73); Platelet Count 247 X10*3/uL (160-400); Red Blood Count 4.26 X10*6/uL (4.20-5.50); Red Cell Distribution Width 13.8 % (11.0-16.0); White Blood Count 9.3 X10*3/uL (4.8-10.8)
[2023-12-25 17:16] LABS: INTERNATIONAL NORM RATIO 0.9 (0.9-1.1); Prothrombin Time 10.7 SEC (11.1-13.3)
[2023-12-25 17:28] LABS: B Type Natriuretic Peptide 20 pg/mL (<100)
[2023-12-25 17:36] LABS: Alanine Aminotransferase 15 U/L (0-31); Albumin Level 4.3 g/dL (3.5-5.0); Alkaline Phosphatase 93 U/L (39-117); Anion Gap 14 (12-20); Aspartate Amino Transferase 22 U/L (5-31); Bilirubin Total 0.2 mg/dL (0.0-1.0); Blood Urea Nitrogen 32 mg/dL (9-16); Calcium 10.1 mg/dL (8.4-10.2); Carbon Dioxide 18 mmol/L (22-29); Chloride 114 mmol/L (96-108); Creatinine Clr Calc Pharmacy 51.6; Estimated Glomerular Filt Rate 46; Glucose Random 152 mg/dL (60-115); Lipase 20 U/L (8-78); Magnesium 1.2 mg/dL (1.6-2.6); Potassium 3.6 mmol/L (3.3-5.1); Sodium 142 mmol/L (135-145); Total Protein 7.5 g/dL (6.5-8.0)
[2023-12-25 17:53] LABS: Influenza A PCR NEGATIVE (Negative); Influenza B PCR NEGATIVE (Negative); Resp Syncy Virus RNA Qual PCR NEGATIVE (Negative); SARS COV2 PCR INHOUSE NEGATIVE (Negative)
[2023-12-25 18:34] VITALS: BP 128/75; PULSE 94; RESP 17; TEMP 36.6; O2SAT 98
--- NOTE | 2023-12-25 19:45 | PHA.MEDREC ---
Pharmacy Consult ? Medication Reconciliation Pharmacy has completed the medication reconciliation. Patient was able to confirm med list. Patient states she gets a combo med of omeprazole and magnesium OTC and there is no such thing so we put them in separate on list so shell get the fill.
--- NOTE | 2023-12-25 19:57 | P.HPHOSP_ITS ---
History of Present Illness Date of Service: 12/25/23 Attending physician on admission: Laura Hobbs Chief Complaint: muscle tremors 68-year-old woman with a past medical history of bipolar disorder, depression, anxiety, peptic ulcer disease, GERD, osteoporosis, type 2 diabetes mellitus, osteoarthritis, CKD stage 3, COPD, proteinuria, CAD, renal mass, CVA with residual deficit (2006), left hemiparesis, diabetic peripheral neuropathy, history of DVT/PE no longer on ac, chronic hypomagnesemia, hypophosphatemia, hyperparathyroidism who presents for evaluation of muscle spasms and tremors. She states that for the last several days she has been having intermittent episodes of muscle spasms all over her body. She has also had memory issues and has fallen several times though denies head injury. She reports associated tremors when she is experiencing this sensation. She states that in this last happened her magnesium was found to be very low. She states that she was given magnesium and discharged home from the emergency room on November 30 with a prescription for magnesium. She reports that she ran out of this prescription 2 weeks ago and feels her mag is low again. Eating and drinking normally, no dietary changes. No diarrhea. She states taking her medications as prescribed. She states no fevers, chills, cough, chest pain, dyspnea, abdominal pain, nausea, vomiting, dysuria urinary frequency. Of note, is taking metformin and PPI and continues on these. 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 Of note, she was also on lithium for 20+ years. SHe also states she has chronic tremor, possibly TD?, ongoing x 20 + following antipsychoatic use. On arrival, vital signs stable the was initially tachycardic to 108. Hematology studies unremarkable. Renal function consistent with CKD stage 3 and baseline. Electrolyte levels significant for chloride 114, CO2 18, phosphorus 2.4 and magnesium 1.2. In the Ed is receiving IV mag and iv kcl. Review of Systems 2 Review of Systems: Yes all other systems are reviewed and are negative [facility] Medical History Uterine cancer Bipolar 1 disorder Depression Anxiety Peptic ulcer GERD (gastroesophageal reflux disease) Back injury Osteoporosis Diabetes Arthritis Stroke COPD (chronic obstructive pulmonary disease) Family History Mother Breast cancer Bone cancer Father Diabetes Cardiovascular disease Maternal Grandmother High blood pressure Diabetes Cardiovascular disease Surgical History H/O right heart catheterization Hx of cholecystectomy H/O hernia repair H/O: hysterectomy Hx of appendectomy H/O lumpectomy Social History Housing: Other (M) Housing Other:: Mobile Home Patient Tobacco Use Status: Former Tobacco user Tobacco use type: Cigarette Cigarette Packs Per Day: 3 Cigarettes Per Day: 60 Years Smoked: 30 e-Cigarette/Vaping Use: Never Used Advance Directives: No Advance Directives Information Provided: No service: No Current occupational status: retired Cognitive needs: No Hearing needs: Yes Vision needs: No Meds Allergies Allergy/AdvReac Type Severity Reaction Status Date / Time iodine Allergy Severe Anaphylaxis Verified 12/25/23 15:42 seafood Allergy Severe Anaphylaxis Verified 12/25/23 15:42 yellow dye Allergy Severe Seizure Verified 12/25/23 15:42 zine Allergy Severe seizures Uncoded 12/25/23 11:38 Active Medications: Current Medications Magnesium Sulfate (Magnesium Sulfate/H2o) 2 gm in 50 mls @ 25 mls/hr IV ONCE ONE Stop: 12/25/23 20:30 Magnesium Sulfate (Magnesium Sulfate/H2o) 2 gm in 50 mls @ 25 mls/hr IV ONCE ONE Stop: 12/25/23 22:29 Potassium Phosphate (Kphos) 15 mmol in 250 mls @ 62.5 mls/hr IV ONCE ONE Stop: 12/25/23 22:30 Home Medications ?Medication ?Instructions ?Recorded ?Confirmed ?Last Taken ?Type acetaminophen 500 mg tablet 500 mg PO DAILY PRN Pain 12/25/23 12/25/23 Unknown History magnesium chloride 71.5 mg 71.5 mg PO BID 12/25/23 12/25/23 12/24/23 18:00 History (magnesium chloride) tablet,delayed release (Slow-Mag) omeprazole 20 mg capsule,delayed 20 mg PO BIDAC 12/25/23 12/25/23 12/24/23 18:00 History release Physical Exam 2 Vital Signs and Narrative: Vital Signs: Last Vital Signs Temp 97.8 F 12/25/23 18:34 Pulse 94 12/25/23 18:34 Resp 17 12/25/23 18:34 BP 128/75 12/25/23 18:34 Pulse Ox 98 12/25/23 18:34 O2 Del Method Room Air 12/25/23 18:34 BMI result Body Mass Index 45.2 Constitutional - Awake and Alert, No apparent distress Eyes - PERRLA, EOMI Cardiovascular - S1S2, RRR, No edema Respiratory - Normal lung expansion, Normal respiratory effort, No respiratory distress, CTA bilaterally Gastrointestinal - NT / ND; +BS; No rebound or guarding Extremities - no calf tenderness bilaterally, no swelling Skin - Warm/Dry Neurological - Alert & oriented x3, CN II-XII in tact, 4/5 strength bue and ble. body wide tremors/spasms Psychological - Appropriate affect Results Labs 12/25/23 17:02 12/25/23 17:02 Labs: Laboratory Results - last 24 hr 12/25/23 17:02 MCV 80.0 MCH 28.4 MCHC 35.5 H RDW 13.8 Plt Count 247 MPV 10.7 Immature Gran % (Auto) 0.2 Neut % (Auto) 61.4 Lymph % (Auto) 33.5 [place] % (Auto) 4.1 Eos % (Auto) 0.4 Baso % (Auto) 0.4 Lymph # (Auto) 3.1 [place] # (Auto) 0.4 Eos # (Auto) 0.0 Baso # (Auto) 0.0 Abs Immat Gran (auto) 0.02 Absolute Neuts (auto) 5.7 Absolute Nucleated RBC 0.000 Nucleated RBC % (auto) 0.0 PT 10.7 L INR 0.9 Anion Gap 14 Estim Creat Clear Calc 51.6 Estimated GFR 46 Random Glucose 152 H Calcium 10.1 Magnesium 1.2 L* Total Bilirubin 0.2 AST 22 ALT 15 Alkaline Phosphatase 93 B-Natriuretic Peptide 20 Total Protein 7.5 Albumin 4.3 Lipase 20 Influenza Type A (PCR) NEGATIVE Influenza Type B (PCR) NEGATIVE RSV RNA Qual (PCR) NEGATIVE SARS-CoV-2 RNA (RT-PCR) NEGATIVE Imaging Radiologist's Impressions: Impressions Chest X-Ray 12/25/23 17:25 IMPRESSION: Unremarkable chest examination. Assessment and Plan (1) Hypophosphatemia: Status: Acute (2) Hypomagnesemia: Status: Acute Plan 68-year-old woman with a past medical history of bipolar disorder, depression, anxiety, peptic ulcer disease, GERD, osteoporosis, type 2 diabetes mellitus, osteoarthritis, CKD stage 3, COPD, proteinuria, CAD, renal mass, CVA with residual deficit (2006), left hemiparesis, diabetic peripheral neuropathy, history of DVT/PE no longer on ac, chronic hypomagnesemia, hypophosphatemia, hyperparathyroidism to be observed overnight for persistent hypomagnesemia. #Chronic hypomagnesemia- symptomatic -etiology unclear -Mag 1.2, on multiple ED visits -Repleted with iv mag in ed. Initiate mag oxide BID -HOld ppo and metformin -nephrology consult -monitor on tele #Bipolar disorder with possible long standing TD -no longer on medications, reports chronic intermittent tremor # cwm-wahontt-cltfjetqn type 2 diabetes -POC glucose, diabetic diet -Humalog on sliding scale -discontinue metformin due to persistent hypomagnesemia # GERD -discontinue PPI -trial famotidine b.i.d. -outpt follow up with gi #CKD stage 3 -renal fx baseline -nephro consult #CAD -no cp -not on asa, bb. nitro prn home dose dvt prophyalaxis- lovenox dnr/dni- discussed with patient Quality Stroke Does the patient have a stroke diagnosis?: No VTE Prior VTE?: No VTE Risk Level:: Medical - moderate - high VTE Device Contraindication: Treatment Not Indicated VTE Drug Contraindication: N/A - Med Ordered
[2023-12-25] MEDS: Potassium Chloride/H20 10 MEQ/100 ML PIGGYBACK 100 MEQ IV (19:58)
[2023-12-25] MEDS: Magnesium Sulfate/H2O 2 GM/50 ML PIGGYBACK IV ×2 (19:58→22:27)
[2023-12-25 20:22] LABS: Phosphorus 2.7 mg/dL (2.7-4.5)
[2023-12-25] MEDS: Potassium Phosphate/NS 15 MMOL/250 ML PLAST..BAG 62.5 MMOL IV (21:20)
[2023-12-25] MEDS: Enoxaparin Sodium 40 MG/0.4 ML SYRINGE SUBCUT (21:34)
[2023-12-25] MEDS: Insulin Lispro 100 UNIT/ML 3 ML VIAL SUBCUT (21:34)
[2023-12-25] MEDS: Famotidine 20 MG TABLET PO (21:34)
[2023-12-25 21:37] LABS: Glucose, Whole Blood 173 mg/dL (60-115)
[2023-12-25 22:32] VITALS: BP 133/56; PULSE 89; RESP 12; TEMP 36.5; O2SAT 96
[2023-12-26 01:34] VITALS: BP 144/71; PULSE 73; RESP 16; TEMP 36.4; O2SAT 97
--- NOTE | 2023-12-26 04:07 | PC.NURSE ---
pt voided, reported not going to the bathroom all day since 10am. reported dark urine. pt now resting comfortably with eyes closed, breathing even and unlabored. no apparent distress noted at this time. call christel w/in reach
[2023-12-26 05:14] VITALS: BP 144/61; PULSE 69; RESP 14; O2SAT 96
[2023-12-26 05:59] LABS: MANUAL DIFF FLAG NO
[2023-12-26 06:20] LABS: Basophils Percent Auto 0.6 % (0-2); Eosinophils Absolute Auto 0.1 X10*3/uL (0.0-0.4); Eosinophils Percent Auto 0.8 % (0-4); Hematocrit 29.5 % (37.0-47.0); Hemoglobin 10.2 g/dl (12.0-16.0); Imm Gran Abs Auto 0.02 X10*3/uL (0.00-0.03); Imm Gran Pct Auto 0.3 % (0.0-0.4); Lymphocytes Absolute Auto 2.8 X10*3/uL (1.2-4.9); Lymphocytes Percent Auto 39.3 % (20-40); Mean Corpuscular HGB Conc 34.6 g/dl (31.0-35.0); Mean Corpuscular Hemoglobin 28.4 pg (27.0-33.0); Mean Corpuscular Volume 82.2 fL (80.0-98.0); Mean Platelet Volume 11.3 fL (9.4-12.3); Monocytes Absolute Auto 0.4 X10*3/uL (0.1-1.2); Monocytes Percent Auto 5.6 % (2-11); Neutrophils Absolute Auto 3.8 x10*3/uL (2.0-8.3); Neutrophils Percent Auto 53.4 % (45-73); Platelet Count 206 X10*3/uL (160-400); Red Blood Count 3.59 X10*6/uL (4.20-5.50); Red Cell Distribution Width 13.8 % (11.0-16.0); White Blood Count 7.1 X10*3/uL (4.8-10.8)
[2023-12-26 06:22] LABS: Anion Gap 13 (12-20); Blood Urea Nitrogen 29 mg/dL (9-16); Calcium 9.2 mg/dL (8.4-10.2); Carbon Dioxide 21 mmol/L (22-29); Chloride 110 mmol/L (96-108); Creatinine Clr Calc Pharmacy 70.2; Estimated Glomerular Filt Rate > 60; Glucose Random 162 mg/dL (60-115); Phosphorus 3.4 mg/dL (2.7-4.5); Potassium 3.6 mmol/L (3.3-5.1); Sodium 140 mmol/L (135-145)
[2023-12-26 07:19] LABS: Glucose, Whole Blood 139 mg/dL (60-115)
[2023-12-26 07:53] VITALS: BP 131/67; PULSE 72; RESP 14; TEMP 36.9; O2SAT 97
[2023-12-26] MEDS: Magnesium Oxide 400 MG TABLET PO (09:06)
[2023-12-26] MEDS: Famotidine 20 MG TABLET PO (09:06)
--- NOTE | 2023-12-26 09:35 | MHC.CM.PN ---
CM met with Patient at bedside, in the ED and addressed PIERCE with her (original was given to Patient and a copy will br placed on the chart). Patient lives alone in an apartment and she uses a walker and a mobility scooter to assist with mobility. Patient is interested in a referral to [facility] for home pt; CM has initiated and will follow for dc planning. 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
--- NOTE | 2023-12-26 11:11 | P.DS_ITS ---
DS: Providers Provider Date of Service: 12/26/23 Date of admission: 12/25/23 19:51 Primary care physician: ADRIA Mejia-TIERA Consults: 12/25/23 19:51 Consult to Nephrology Routine Consulting Provider: [facility] [place] Reason for consultation: persistent hypomagnesiemia DS: Diagnosis Discharge Diagnosis (1) Hypophosphatemia: Status: Acute (2) Hypomagnesemia: Status: Acute DS: Summary Hospital Course Hospital Course: admission hpi Chief Complaint: muscle tremors 68-year-old woman with a past medical history of bipolar disorder, depression, anxiety, peptic ulcer disease, GERD, osteoporosis, type 2 diabetes mellitus, osteoarthritis, CKD stage 3, COPD, proteinuria, CAD, renal mass, CVA with residual deficit (2006), left hemiparesis, diabetic peripheral neuropathy, history of DVT/PE no longer on ac, chronic hypomagnesemia, hypophosphatemia, hyperparathyroidism who presents for evaluation of muscle spasms and tremors. She states that for the last several days she has been having intermittent episodes of muscle spasms all over her body. She has also had memory issues and has fallen several times though denies head injury. She reports associated tremors when she is experiencing this sensation. She states that in this last happened her magnesium was found to be very low. She states that she was given magnesium and discharged home from the emergency room on November 30 with a prescription for magnesium. She reports that she ran out of this prescription 2 weeks ago and feels her mag is low again. Eating and drinking normally, no dietary changes. No diarrhea. She states taking her medications as prescribed. She states no fevers, chills, cough, chest pain, dyspnea, abdominal pain, nausea, vomiting, dysuria urinary frequency. Of note, is taking metformin and PPI and continues on these. 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 Of note, she was also on lithium for 20+ years. SHe also states she has chronic tremor, possibly TD?, ongoing x 20 + following antipsychoatic use. On arrival, vital signs stable the was initially tachycardic to 108. Hematology studies unremarkable. Renal function consistent with CKD stage 3 and baseline. Electrolyte levels significant for chloride 114, CO2 18, phosphorus 2.4 and magnesium 1.2. In the Ed is receiving IV mag and iv kcl. Hospital course The patient has a history of hypomagnesemia (low magnesium levels) and was prescribed magnesium supplements, but she wasn't taking them. She was also taking omeprazole, which can interfere with magnesium absorption. She came to the hospital with muscle tremors, a common symptom of low magnesium. Her magnesium level was measured at 1.2 mg/dL, which is below the normal range. She received intravenous magnesium replacement to correct the deficiency, and her level is now at 2.0 mg/dL. Oral magnesium supplements have been added to her regimen for ongoing management. It's recommended that she avoid taking omeprazole (and other PPIs) if possible. Also inital Phosphorus level of 2.4 is now 3.4 after supplment. To discuss her long-term management plan, a follow-up appointment with a kidney doctor is advised. Time Attestation Discharge Coordination Time (in mins): 35 Quality: Safe Use of Opioids Does Pt have an Active Cancer Diagnosis on the Problem List?: No Quality: Stroke Does the patient have a stroke diagnosis?: No Physical Exam Vital Signs: Vital Signs: Last Vital Signs Temp 98.4 F 12/26/23 07:53 Pulse 72 12/26/23 07:53 Resp 14 12/26/23 07:53 BP 131/67 12/26/23 07:53 Pulse Ox 97 12/26/23 07:53 O2 Del Method Room Air 12/26/23 07:53 BMI result Body Mass Index 45.2 General: AO X 3, no acute distress Resp: CTA bilateral CVS: S1,S2,RRR GI: +BS, NT, no distention Skin: No rash Neuro: motor grossly intact Psych: appropriate affect DS: Data Data Completed and Pending Labs on day of discharge: Laboratory Results - last 24 hr 12/25/23 12/25/23 12/26/23 17:02 21:29 04:31 WBC 9.3 7.1 RBC 4.26 3.59 L Hgb 12.1 10.2 L Hct 34.1 L 29.5 L MCV 80.0 82.2 MCH 28.4 28.4 MCHC 35.5 H 34.6 RDW 13.8 13.8 Plt Count 247 206 MPV 10.7 11.3 Immature Gran % (Auto) 0.2 0.3 Neut % (Auto) 61.4 53.4 Lymph % (Auto) 33.5 39.3 [place] % (Auto) 4.1 5.6 Eos % (Auto) 0.4 0.8 Baso % (Auto) 0.4 0.6 Lymph # (Auto) 3.1 2.8 [place] # (Auto) 0.4 0.4 Eos # (Auto) 0.0 0.1 Baso # (Auto) 0.0 0.0 Abs Immat Gran (auto) 0.02 0.02 Absolute Neuts (auto) 5.7 3.8 Absolute Nucleated RBC 0.000 0.000 Nucleated RBC % (auto) 0.0 0.0 PT 10.7 L INR 0.9 Sodium 142 140 Potassium 3.6 3.6 Chloride 114 H 110 H Carbon Dioxide 18 L 21 L Anion Gap 14 13 BUN 32 H 29 H Creatinine 1.17 0.86 Estim Creat Clear Calc 51.6 70.2 Estimated GFR 46 > 60 POC Glucose 173 H Random Glucose 152 H 162 H Calcium 10.1 9.2 D Phosphorus 2.7 3.4 Magnesium 1.2 L* 2.0 Total Bilirubin 0.2 AST 22 ALT 15 Alkaline Phosphatase 93 B-Natriuretic Peptide 20 Total Protein 7.5 Albumin 4.3 Lipase 20 Influenza Type A (PCR) NEGATIVE Influenza Type B (PCR) NEGATIVE RSV RNA Qual (PCR) NEGATIVE SARS-CoV-2 RNA (RT-PCR) NEGATIVE 12/26/23 07:16 WBC RBC Hgb Hct MCV MCH MCHC RDW Plt Count MPV Immature Gran % (Auto) Neut % (Auto) Lymph % (Auto) [place] % (Auto) Eos % (Auto) Baso % (Auto) Lymph # (Auto) [place] # (Auto) Eos # (Auto) Baso # (Auto) Abs Immat Gran (auto) Absolute Neuts (auto) Absolute Nucleated RBC Nucleated RBC % (auto) PT INR Sodium Potassium Chloride Carbon Dioxide Anion Gap BUN Creatinine Estim Creat Clear Calc Estimated GFR POC Glucose 139 H Random Glucose Calcium Phosphorus Magnesium Total Bilirubin AST ALT Alkaline Phosphatase B-Natriuretic Peptide Total Protein Albumin Lipase Influenza Type A (PCR) Influenza Type B (PCR) RSV RNA Qual (PCR) SARS-CoV-2 RNA (RT-PCR) Discharge Plan Discharge Anticipated Discharge Date/Time: 12/26/23 11:09 Patient Disposition: Home, Self-Care Discharge Diagnosis: Hypomagnesemia, Hypophosphetemia Referrals: Fiona Jenkins, [facility]- [Primary Care Provider] - 1 Week Discharge Medications: New famotidine [Pepcid] 40 mg tablet 40 mg PO DAILY Qty: 90 0RF Continued metformin 500 mg tablet extended release 24 hr 500 mg PO BID 90 Days Qty: 180 0RF albuterol sulfate 90 mcg/actuation HFA aerosol inhaler 2 puff inhalation Q4-6H PRN (Reason: shortness of breath or wheezing) 30 Days Qty: 8.5 0RF Boost Glucose Control 0.07-0.8 gram-kcal/mL liquid 1 ea PO DAILY Qty: 7110 12RF U-Savi-Huusehg 250 mg tablet 1 tab PO BID Qty: 60 0RF acetaminophen 500 mg Tablet 500 mg PO DAILY PRN (Reason: Pain) nitroglycerin 0.4 mg tablet, sublingual 0.4 mg sublingual Q5M PRN (Reason: chest pain) 30 Days Qty: 30 0RF Rx Instructions: do not exceed 3 doses per episode (DME) bedside commode Kit See Rx Instructions .Route Qty: 1 0RF Rx Instructions: As directed Changed Slow-Mag 71.5 mg tablet,delayed release (DR/EC) 143 mg PO BID Qty: 180 0RF Discontinued omeprazole 20 mg capsule,delayed release(DR/EC) 20 mg PO BIDAC Discharge Orders: Discharge Order (Routine); Ordered 12/26/23 Ordered By: Zack Duque Diet: Advance to usual diet Activity on Discharge: As tolerated Stand Alone Forms: Patient Portal Discharge page Print Language: Indian Care Plan Goals: control of magnesium level and prevent the associated symptoms Health Concerns: hypomagnesemia, hypophosphatemia Plan of Treatment: take magnesium supplement as recommended (Dose increased to 2 tabs twice daily) follow up with the kidney doctor on outpatient basis Stop taking Omeprazole and instead take Pepcid Assessment: see above Discharge Date/Time: 12/26/23 15:15
--- NOTE | 2023-12-26 11:32 | P.CONNP_ITS ---
History of Present Illness Reason for Consult Consult date: 12/26/23 Chief Complaint Chief complaint: hypo mag History of Present Illness Narrative: 68-year-old woman with a l history of bipolar disorder, depression, anxiety, peptic ulcer disease, GERD, osteoporosis, type 2 diabetes mellitus, osteoarthritis, CKD stage 3, COPD, proteinuria, CAD, renal mass, CVA with residual deficit (2006), left hemiparesis, diabetic peripheral neuropathy, history of DVT/PE no longer on ac, chronic hypomagnesemia, hypophosphatemia, hyperparathyroidism who presents for evaluation of muscle spasms and tremors. She states that for the last several days she has been having intermittent episodes of muscle spasms all over her body. She has also had memory issues and has fallen several times though denies head injury. She reports associated tremors when she is experiencing this sensation. She states that in this last happened her magnesium was found to be very low. She states that she was given magnesium and discharged home from the emergency room on November 30 with a prescription for magnesium. She reports that she ran out of this prescription 2 weeks ago and feels her mag is low again. Eating and drinking normally, no dietary changes. No diarrhea. She states taking her medications as prescribed. Review of Systems Constitutional: Denies fever(s) and Denies weight loss Cardiovascular: Denies chest pain Respiratory: Denies cough and Denies hemoptysis Gastrointestinal: Denies abdominal pain, Denies diarrhea and Denies nausea Musculoskeletal: Denies back pain Denies focal weakness PMFSH Past Medical History Medical History Uterine cancer Bipolar 1 disorder Depression Anxiety Peptic ulcer GERD (gastroesophageal reflux disease) Back injury Osteoporosis Diabetes Arthritis Stroke COPD (chronic obstructive pulmonary disease) Family History Family History Mother Breast cancer Bone cancer Father Diabetes Cardiovascular disease Maternal Grandmother High blood pressure Diabetes Cardiovascular disease Surgical History Surgical History H/O right heart catheterization Hx of cholecystectomy H/O hernia repair H/O: hysterectomy Hx of appendectomy H/O lumpectomy Social History Social History Housing: Other (M) Housing Other:: Mobile Home Patient Tobacco Use Status: Former Tobacco user Tobacco use type: Cigarette Cigarette Packs Per Day: 3 Cigarettes Per Day: 60 Years Smoked: 30 Smoked in Last 30 Days: No e-Cigarette/Vaping Use: Never Used Use of substances other than those prescribed or required for medical reasons: No Advance Directives: No Advance Directives Information Provided: No Nutrition Risks: No Nutritional Risk service: No Current occupational status: retired Cognitive needs: No Hearing needs: Yes Vision needs: No Meds Allergies Allergy/AdvReac Type Severity Reaction Status Date / Time iodine Allergy Severe Anaphylaxis Verified 12/25/23 15:42 seafood Allergy Severe Anaphylaxis Verified 12/25/23 15:42 yellow dye Allergy Severe Seizure Verified 12/25/23 15:42 zine Allergy Severe seizures Uncoded 12/25/23 11:38 Active Medications: Current Medications Acetaminophen (Acetaminophen 325 Mg Tablet) 650 mg PO Q6H PRN PRN Reason: Pain, Mild (Pain Scale 1-3) Albuterol Sulfate (Albuterol Sulfate 90 Mcg 8 Gm Inhaler) 2 puff INHALE Q4H PRN PRN Reason: shortness of breath or wheezing Enoxaparin Sodium (Enoxaparin Sodium 40 Mg/0.4 Ml Syringe) 40 mg SUBCUT Q24H [facility] Last Admin: 12/25/23 21:34 Dose: 40 mg Famotidine (Famotidine 20 Mg Tablet) 20 mg PO BID [facility] Last Admin: 12/26/23 09:06 Dose: 20 mg Glucose (Glucose Gel 15 Gm Gel..Gram.) 15 gm PO Q15M PRN; Protocol PRN Reason: per Hypoglycemia Standing Ord. Dextrose (D10) 250 mls @ 750 mls/hr IV Q15M PRN; Protocol PRN Reason: per Hypoglycemia Standing Ord. Insulin Human Lispro (Insulin Lispro 100 Unit/Ml 3 Ml Vial) 0 unit SUBCUT QIDACHS [facility]; Protocol Last Admin: 12/26/23 07:23 Dose: Not Given Magnesium Oxide (Magnesium Oxide 400 Mg Tablet) [facility] Last Admin: 12/26/23 09:06 Dose: 400 mg Nitroglycerin (Nitroglycerin 0.4 Mg Tab.Subl) 0.4 mg SUBLINGUAL Q5M PRN PRN Reason: chest pain Ondansetron HCl (Ondansetron Hcl 4 Mg/2 Ml Vial) 4 mg IVPUSH Q8H PRN PRN Reason: Nausea and Vomiting Senna (Sennosides 8.6 Mg Tablet) 17.2 mg PO BEDTIME PRN PRN Reason: Constipation Sodium Chloride (0.9 % Sodium Chloride Flush 3 Ml Syringe) [facility] Last Admin: 12/26/23 09:16 Dose: Not Given Home Medications ?Medication ?Instructions ?Recorded ?Confirmed ?Last Taken ?Type acetaminophen 500 mg tablet 500 mg PO DAILY PRN Pain 12/25/23 12/25/23 Unknown History magnesium chloride 71.5 mg 71.5 mg PO BID 12/25/23 12/25/23 12/24/23 18:00 History (magnesium chloride) tablet,delayed release (Slow-Mag) omeprazole 20 mg capsule,delayed 20 mg PO BIDAC 12/25/23 12/25/23 12/24/23 18:00 History release Physical Exam Vital Signs: Last Vital Signs Temp 98.4 F 12/26/23 07:53 Pulse 72 12/26/23 07:53 Resp 14 12/26/23 07:53 BP 131/67 12/26/23 07:53 Pulse Ox 97 12/26/23 07:53 O2 Del Method Room Air 12/26/23 07:53 BMI result Body Mass Index 45.2 Const General: comfortable Nutritional Appearance: well nourished Orientation/consciousness: patient oriented x3 HEENT Head: No normal to inspection Mouth: moist mucous membranes Neck Neck: Yes supple and Yes no JVD Resp Auscultation: clear to auscultation bilaterally, no rales and rub present Cardio Jugular venous distension: no JVD Palpation: no palpable S3 and no palpable S4 Heart sounds: no rubs GI Palpation (GI): Soft to palpation and nontender Percussion: No Fluid wave present General: Yes no CVA tenderness Back/Spine/Pelvis Back: no CVA tenderness Skin General skin exam: no rashes or lesions noted Neuro General: patient oriented x3 Extrem General: Yes no pedal edema and No clubbing Results Lab Results 12/26/23 04:31 12/26/23 04:31 Lab results: Chemistry 12/25/23 12/26/23 17:02 04:31 Sodium 142 140 Potassium 3.6 3.6 Carbon Dioxide 18 L 21 L BUN 32 H 29 H Creatinine 1.17 0.86 Calcium 10.1 9.2 D Phosphorus 2.7 3.4 Hematology 12/25/23 12/26/23 17:02 04:31 WBC 9.3 7.1 Hgb 12.1 10.2 L Plt Count 247 206 Assessment and Plan (1) Hypophosphatemia: Status: Acute (2) Hypomagnesemia: Status: Acute Plan 68 year year old woman with a history of bipolar disorder who was on lithium for several years now has hypomagnesemia. Serum calcium is normal Renal function is normal. Check 24 hour urine collection for sodium, calcium, magnesium and creatinine clearance. This can be done as an outpatient. Also check PTH Increase magnesium supplementation Avoid diuretics Agree with holding off on PPIs. She will arrange for outpatient follow-up if discharged. Procedures Date of Service Date of Service: 12/26/23
[2023-12-26 11:45] LABS: Magnesium 1.7 mg/dL (1.6-2.6)
[2023-12-26 12:04] LABS: Glucose, Whole Blood 160 mg/dL (60-115)
[2023-12-26] MEDS: Magnesium Sulfate/D5W 1 GM/100 ML PIGGYBACK IV (12:43)
[2023-12-26] MEDS: Insulin Lispro 100 UNIT/ML 3 ML VIAL SUBCUT (13:19)
--- NOTE | 2023-12-26 14:41 | MHC.CM.PN ---
Patient has been medically cleared for dc to home today, self care.
== END 2023-12-26 15:15 | disposition home or self-care (01) ==
LOC: HO.ED 19:14 → HO.EDOVER 20:31
PROVIDERS: Physician Assistant; Student in an Organized Health Care Education/Training Program; Admitting Provider Physician Assistant; Emergency Provider Emergency Medicine; PCP Nurse Practitioner Family; Visit Provider Internal Medicine
DX: E83.39 Other disorders of phosphorus metabolism (principal); E83.42 Hypomagnesemia; I12.9 Hypertensive chronic kidney disease with stage 1 through stage 4 chronic kidney disease, or unspecified chronic kidney disease; E11.22 Type 2 diabetes mellitus with diabetic chronic kidney disease; N18.30 Chronic kidney disease, stage 3 unspecified; R06.02 Shortness of breath; R25.2 Cramp and spasm; J44.9 Chronic obstructive pulmonary disease, unspecified; Z79.84 Long term (current) use of oral hypoglycemic drugs; Z79.899 Other long term (current) drug therapy
CPT/HCPCS: 0241U; 36415; 71046; 80048; 80053; 82947; 83690; 83735; 83880; 84100; 85025; 85610; 93005; 96361; 96365; 96366; 96372; 99222; 99285; J1650; J3475; J3480

== ENCOUNTER → 2023-12-25 15:41 | Outpatient (BNV) | payer OTHER, SELFPAY | PROVIDERS: Admitting Provider Physician Assistant; Emergency Provider Emergency Medicine; PCP Nurse Practitioner Family; Visit Provider Internal Medicine Cardiovascular Disease | DX: R06.02 Shortness of breath (principal) | CPT/HCPCS: 93010 ==

== ENCOUNTER → 2023-12-25 19:51 | Outpatient (BNV) | payer OTHER, SELFPAY | PROVIDERS: Admitting Provider Physician Assistant; Emergency Provider Emergency Medicine; PCP Nurse Practitioner Family; Visit Provider Internal Medicine Hypertension Specialist | DX: E83.39 Other disorders of phosphorus metabolism (principal); E83.42 Hypomagnesemia | CPT/HCPCS: 99222 ==

== ENCOUNTER → 2023-12-25 19:51 | Outpatient (BNV) | payer OTHER, SELFPAY | PROVIDERS: Admitting Provider Physician Assistant; Emergency Provider Emergency Medicine; Visit Provider Physician Assistant | DX: E83.39 Other disorders of phosphorus metabolism (principal); E83.42 Hypomagnesemia | CPT/HCPCS: 99223; 99239 ==

== ENCOUNTER 2024-01-04 11:19 | Outpatient (AMB) | payer OTHER, SELFPAY ==
[2024-01-04 11:23] VITALS: BP 136/86; PULSE 80; O2SAT 97; BMI 46.5
--- NOTE | 2024-01-04 11:23 | HO.NEPHOV_ITS ---
Vital Signs 01/04/24 11:23 Height 5 ft 1 in Weight 246 lb BMI 46.5 BP 136/86 Blood Pressure Location Lt brachial Position Sitting Pulse 80 Pulse Source Pulse Oximeter Pulse Oximetry (%) 97 Oxygen Delivery Method Room Air Intake Visit Reasons: Hypomagnesemia/ CKD stg 3/ Conf Trimmer Press Clippings Required: No Accompanied by: Self / Same As Patient Allergies iodine Allergy (Severe, Verified 01/04/24 11:25) Anaphylaxis seafood Allergy (Severe, Verified 01/04/24 11:25) Anaphylaxis yellow dye Allergy (Severe, Verified 01/04/24 11:25) Seizure zine Allergy (Severe, Uncoded 12/25/23 11:38) seizures Medication List - Last Reconciled 01/04/24 by Primo Peterson MD acetaminophen 500 mg PO DAILY PRN commode (bedside commode) As directed famotidine (Pepcid) 40 mg PO DAILY ipratropium-albuterol 20-100 mcg/actuation (Combivent Respimat) 1 puff inhalation Q6H magnesium chloride (Slow-Mag) 143 mg (2 x 71.5 mg) PO BID metformin ER 500 mg PO BID 90 days nitroglycerin 0.4 mg sublingual Q5M PRN 30 days HPI Comments Details: 68-year-old woman with a history of bipolar disorder, depression, anxiety, peptic ulcer disease, GERD, osteoporosis, type 2 diabetes mellitus, osteoarthritis, CKD stage 3, COPD, proteinuria, CAD, renal mass, CVA with residual deficit (2006), left hemiparesis, diabetic peripheral neuropathy, history of DVT/PE no longer on ac, chronic hypomagnesemia, hypophosphatemia, hyperparathyroidism who presents for evaluation of muscle spasms and tremors. She used to be on lithium in the past. At present she has not on lithium. She has no polyuria polydipsia. No diarrhea. Not on any diuretic PFSH Medical History Uterine cancer Bipolar 1 disorder Depression Anxiety Peptic ulcer GERD (gastroesophageal reflux disease) Back injury Osteoporosis Diabetes Arthritis Stroke COPD (chronic obstructive pulmonary disease) Surgical History H/O right heart catheterization Hx of cholecystectomy H/O hernia repair H/O: hysterectomy Hx of appendectomy H/O lumpectomy Family History Mother Breast cancer Bone cancer Father Diabetes Cardiovascular disease Maternal Grandmother High blood pressure Diabetes Cardiovascular disease Social History Housing: Other (M) Housing Other:: Mobile Home Patient Tobacco Use Status: Former Tobacco user Tobacco use type: Cigarette Cigarette Packs Per Day: 3 Cigarettes Per Day: 60 Years Smoked: 30 e-Cigarette/Vaping Use: Never Used service: No Current occupational status: retired Cognitive needs: No Hearing needs: Yes Vision needs: No Review of Systems Const Denies fever(s) and Denies weight loss Card Denies chest pain Resp Denies cough and Denies hemoptysis GI Denies abdominal pain, Denies diarrhea and Denies nausea Musc Denies back pain Neuro Denies focal weakness Physical Exam Vital Signs: Last Vital Signs Pulse 80 01/04/24 11:23 BP 136/86 01/04/24 11:23 Pulse Ox 97 01/04/24 11:23 Oxygen Delivery Method Room Air 01/04/24 11:23 BMI result Body Mass Index 46.5 Const General: comfortable; No acute distress Orientation/consciousness: patient oriented x3 Eyes General: appearance normal, both eyes and all related structures Visual Cervantes: normal visual cervantes by confrontation Neck Neck: Yes supple and Yes no JVD Resp Effort & Inspection: normal respiratory effort and respiratory effort not decreased Auscultation: rhonchi Cardio Palpation: no palpable S3 and no palpable S4 Heart sounds: no rubs GI Inspection: Yes normal to inspection Palpation (GI): Soft to palpation Percussion: Yes normal to percussion Auscultation: normal bowel sounds General: Yes no CVA tenderness Back/Spine/Pelvis Back: no CVA tenderness Skin General skin exam: no petechiae and no purpura Neuro General: patient oriented x3 and no focal motor deficits Extrem General: No clubbing and No edema Results Reviewed Nephrology Results: Hgb 10.2 g/dl (12.0-16.0) L 12/26/23 WBC 7.1 X10*3/uL (4.8-10.8) 12/26/23 Plt Count 206 X10*3/uL (160-400) 12/26/23 Sodium 140 mmol/L (135-145) 12/26/23 Potassium 3.6 mmol/L (3.3-5.1) 12/26/23 Chloride 110 mmol/L (96-108) H 12/26/23 Carbon Dioxide 21 mmol/L (22-29) L 12/26/23 BUN 29 mg/dL (9-16) H 12/26/23 Creatinine 0.86 mg/dL (0.5-1.4) 12/26/23 Calcium 9.2 mg/dL (8.4-10.2) 12/26/23 Phosphorus 3.4 mg/dL (2.7-4.5) 12/26/23 PTH Intact 121.4 pg/mL (8.7-77.1) H 11/03/23 Urine Protein 30 (1+) mg/dL (Neg-Trace) H 12/01/23 Assessment & Plan Assessment & Plan (1) Renal cyst: Code(s): N28.1 - Cyst of kidney, acquired Category: Medical Plan: History of renal cyst since several years. Apparently he has not had any follow-up. I will start with a renal ultrasonogram Further workup will be based on the the results of ultrasonogram. (2) Hypomagnesemia: Code(s): E83.42 - Hypomagnesemia Category: Medical Plan: GI versus urinary losses. Currently on oral magnesium supplementation Levels are normal. Recheck calcium magnesium intake PTH levels. Avoid proton pump inhibitors and diuretics. Plan At present renal function stable serum creatinine 0.9. Mild prerenal azotemia Increased increase fluid intake. She will watch renal function Orders: Orders US renal BI Today N28.1 - Cyst of kidney, acquired Basic Metabolic Panel 1 Month E83.42 - Hypomagnesemia, N28.1 - Cyst of kidney, acquired Magnesium 1 Month E83.42 - Hypomagnesemia, N28.1 - Cyst of kidney, acquired Phosphorus 1 Month E83.42 - Hypomagnesemia, N28.1 - Cyst of kidney, acquired Parathyroid Hormone Intact 1 Month E83.42 - Hypomagnesemia, N28.1 - Cyst of kidney, acquired Coding Level of Care Code Est Pt Level 4 (12593) Diagnoses Renal cyst N28.1 Hypomagnesemia E83.42
== END 2024-01-04 11:40 | disposition home or self-care (01) ==
PROVIDERS: PCP Nurse Practitioner Family; Visit Provider Internal Medicine Hypertension Specialist
DX: N28.1 Cyst of kidney, acquired (principal); E83.42 Hypomagnesemia
CPT/HCPCS: 99214

== ENCOUNTER → 2024-01-04 11:19 | Outpatient (BNVA) | payer OTHER, SELFPAY | PROVIDERS: PCP Nurse Practitioner Family; Visit Provider Internal Medicine Hypertension Specialist | DX: N28.1 Cyst of kidney, acquired (principal); E83.42 Hypomagnesemia; E11.22 Type 2 diabetes mellitus with diabetic chronic kidney disease; N18.30 Chronic kidney disease, stage 3 unspecified | CPT/HCPCS: 99212 ==

== ENCOUNTER 2024-01-09 09:16 | Outpatient (AMB) | payer OTHER, SELFPAY ==
--- NOTE | 2024-01-09 09:21 | MHC.PC.OV ---
Vital Signs 01/09/24 09:26 Height 5 ft 1 in Weight 246 lb 8 oz BMI 46.6 BP 138/78 Blood Pressure Location Rt brachial Position Sitting Respiration 16 Pulse 84 Pulse Source Pulse Oximeter Pulse Oximetry (%) 98 Oxygen Delivery Method Room Air Intake Visit Reasons: est/ magnesium issue Intake Note: Follow up. Was at [facility] Last Monday. 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 [employer] Required: No Allergies iodine Allergy (Severe, Verified 01/09/24 09:22) Anaphylaxis seafood Allergy (Severe, Verified 01/09/24 09:22) Anaphylaxis yellow dye Allergy (Severe, Verified 01/09/24 09:22) Seizure zine Allergy (Severe, Uncoded 01/09/24 09:22) seizures Medication List - Last Reconciled 01/09/24 by ADRIA Mejia-TIERA acetaminophen 500 mg PO DAILY PRN commode (bedside commode) As directed famotidine (Pepcid) 40 mg PO DAILY ipratropium-albuterol 20-100 mcg/actuation (Combivent Respimat) 1 puff inhalation Q6H magnesium chloride (Slow-Mag) 143 mg (2 x 71.5 mg) PO BID metformin ER 500 mg PO BID 90 days nitroglycerin 0.4 mg sublingual Q5M PRN 30 days sod phos di, mono-K phos mono 250 mg ([id number]) 1 tab PO BID Tobacco use date assessed: 01/09/24 Fall risk assessment: 2 + Falls in past year (4) Last assessed Fall Risk: 01/09/24 Dental Screening Dental Screen Date: 11/03/23 HPI HPI Comments History of Present Illness Details 68-year-old female with bipolar disorder, depression, anxiety, peptic ulcer disease, GERD, osteoporosis, diabetes type 2, osteoarthritis, COPD, CKD 3a, proteinuria, coronary artery disease, renal mass, CVA with residual deficit (2006), left hemiparesis, diabetic peripheral neuropathy, history of DVT/PE on anti coag for short period of time Here today for hospital d/c follow up Admitted to [facility] 12/25/23 and d/c home with no services 12/26/23 Work up reviewed. New Medications: Increased Slow Mag from 1 tab BID and 2 tabs BID Since last visit - Renal consult reviewed. She will be having a a renal US Pepcid not working for GERD Not taking PPI as directed by Renal Spoke w/ pharmacy about Phos coverage - has not started yet as she cont to have to pay out of cost. States this will a 4 day turn around and covered by [facility] and [facility]. Most recent labs 12/26/23 done by renal reviewed today. Phosphorus WNL 3.4 Magnesium 2.0 and 1.7 she made a specific mention of Ca dropping Went from 10.1 to 9.2 cont to have tremors which improve when her Mag and Phos are normalized Spiriva denied by insurance. Using Combivent with + effect. breathing is so much better Plan: Will be getting repeat labs done today ordered by Renal. Cont slow mag 2 tabs BID Next visit with Renal 02/2024 Start K-Phos Neut as soon as its available Remain off PPI Advised to take pepcid at HS to see if this prevents AM nausea PFSH Medical History Uterine cancer Bipolar 1 disorder Depression Anxiety Peptic ulcer GERD (gastroesophageal reflux disease) Back injury Osteoporosis Diabetes Arthritis Stroke COPD (chronic obstructive pulmonary disease) Surgical History H/O right heart catheterization Hx of cholecystectomy H/O hernia repair H/O: hysterectomy Hx of appendectomy H/O lumpectomy Family History Mother Breast cancer Bone cancer Father Diabetes Cardiovascular disease Maternal Grandmother High blood pressure Diabetes Cardiovascular disease Social History Housing: Other (M) Housing Other:: Mobile Home Patient Tobacco Use Status: Former Tobacco user Tobacco use type: Cigarette Cigarette Packs Per Day: 3 Cigarettes Per Day: 60 Years Smoked: 30 e-Cigarette/Vaping Use: Never Used service: No Current occupational status: retired Cognitive needs: No Hearing needs: Yes Vision needs: No Questionnaire Thrive Questionnaire Date Thrive assessed: 12/26/23 GEETA-7 AMB Questionnaire GEETA-7 Date GEETA - 7 assessed: 08/18/23 Source: Developed by Drs. Gurjit White, Yahaira Kent, Yakov Helms and colleagues, with an educational talia from [employer]. Review of Systems Const All systems reviewed & are unremarkable except as noted in HPI and below Physical exam (Primary Care) Vital Signs: Last Vital Signs Pulse 84 01/09/24 09:26 Resp 16 01/09/24 09:26 BP 138/78 01/09/24 09:26 Pulse Ox 98 01/09/24 09:26 Oxygen Delivery Method Room Air 01/09/24 09:26 BMI result Body Mass Index 46.6 BMI Assessment/Plan discussion: High BMI High, discussed plan: lifestyle Tobacco/Smoking Status: Tobacco use Status Tobacco use date assessed 01/09/24 01/09/24 09:28 Patient Tobacco Use Status Former Tobacco user 01/09/24 09:28 Tobacco use type Cigarette 01/09/24 09:28 e-Cigarette/Vaping Use Never Used 01/09/24 09:28 Thrive Assessment: Date of Thrive Assessment Date Thrive assessed 12/26/23 01/09/24 09:28 Const Other: Awake alert oriented Mood elevated, tangential speech Mucous membranes moist Lung sounds clear to auscultation bilat regular rate and rhythm No edema BLE Generally tremulous,though not as bad as previous visit Mentation at baseline Assessment and Plan Assessment & Plan (1) Hospital discharge follow-up: Code(s): Z09 - Encounter for follow-up examination after completed treatment for conditions other than malignant neoplasm (2) 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 While every effort has been made to ensure accuracy in internal grinder set up operator, still errors may have been included Sometimes, these errors may affect the content or meaning of the given sentence . Total time spent caring for the patient today was 50 minutes. This includes time spent before the visit reviewing the chart, time spent during the visit, and time spent after the visit on documentation Patient Instructions: Medications reconciled & updated. During todays visit, the d/c summary was reviewed, along with the need for or follow-up on pending diagnostic tests and treatments, as necessary interaction with other health care services manager who will assume or reassume care of the beneficiary?s system-specific problems was done or is being worked on, education was provided to the beneficiary, family, guardian, and/or caregiver, referrals to establish or re-establish and arrange needed community resources we completed, assistance in scheduling required follow-up with community providers and services & finally updated medication list given to patient/caregiver Plan: Will be getting repeat labs done today ordered by Renal. 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
[2024-01-09 09:26] VITALS: BP 138/78; PULSE 84; RESP 16; O2SAT 98; BMI 46.6
== END 2024-01-09 10:08 | disposition home or self-care (01) ==
PROVIDERS: PCP Nurse Practitioner Family; Visit Provider Nurse Practitioner Family
DX: N18.9 Chronic kidney disease, unspecified (principal); Z09 Encounter for follow-up examination after completed treatment for conditions other than malignant neoplasm; E83.39 Other disorders of phosphorus metabolism; E83.42 Hypomagnesemia
CPT/HCPCS: 99215

== ENCOUNTER 2024-01-09 09:56 | Outpatient (REF) | payer OTHER, SELFPAY ==
[2024-01-09 11:38] LABS: Appearance Urine Cloudy; Color Urine Dark Yellow; Glucose Urine UA 100 mg/dL (Negative); Leukocyte Esterase Urine Small (1+) (Negative); Nitrite Urine Negative (Negative); PH 5.5 (5.0-9.0); Specific Gravity - Urine 1.025 (1.005-1.025); UMIC TRIGGER UACC YES; Urine Blood Negative (Negative); Urine Ketones Trace mg/dL (Negative); Urine Protein 100 (2+) mg/dL (Neg-Trace)
[2024-01-09 12:00] LABS: Bacteria Urine 1+ (None Seen); Hyaline Casts Urine 0-2 /LPF (0-2); RBC Urine 0-2 /HPF (0-2); UACC Culture Trigger YES; WBC Urine 0-5 /HPF (0-5)
[2024-01-09 12:55] LABS: Anion Gap 12 (12-20); Blood Urea Nitrogen 21 mg/dL (9-16); Carbon Dioxide 23 mmol/L (22-29); Chloride 108 mmol/L (96-108); Estimated Glomerular Filt Rate 53; Glucose Random 194 mg/dL (60-115); Phosphorus 2.2 mg/dL (2.7-4.5); Potassium 3.9 mmol/L (3.3-5.1); Sodium 139 mmol/L (135-145)
[2024-01-09 13:59] LABS: Magnesium 1.4 mg/dL (1.6-2.6)
== END 2024-01-09 09:57 | disposition home or self-care (01) ==
LOC: HO.WFDLDS 09:56
PROVIDERS: Internal Medicine Hypertension Specialist; Visit Provider Nurse Practitioner Family
DX: N28.1 Cyst of kidney, acquired (principal); E83.42 Hypomagnesemia; R82.90 Unspecified abnormal findings in urine; M81.0 Age-related osteoporosis without current pathological fracture; E11.9 Type 2 diabetes mellitus without complications
CPT/HCPCS: 36415; 80048; 81001; 83735; 83970; 84100; 87086

== ENCOUNTER 2024-01-16 10:10 | Outpatient (REF) | payer OTHER, SELFPAY ==
--- NOTE | ~2024-01-16 | US_ITS ---
EXAMINATION: US RETROPERITONEAL LIMITED (RENAL ONLY) CLINICAL INFORMATION: Cyst of kidney, acquired. COMPARISON: None available. TECHNIQUE: Real-time imaging of the kidneys. Technically limited study secondary to bowel gas and body habitus. FINDINGS: RIGHT KIDNEY: 10.9 x 4.8 x 5.4 cm (SAG x AP x TRV). No hydronephrosis. No renal calculi. Renal cortical thickness is normal. Limited visualization. . LEFT KIDNEY: 10.6 x 4.5 x 5.6 cm (SAG x AP x TRV). No hydronephrosis. No renal calculi. Renal cortical thickness is normal. Limited visualization. US/US renal BI IMPRESSION: No hydronephrosis. No renal calculi. Limited visualization due to bowel gas and body habitus..
== END 2024-01-16 10:11 | disposition home or self-care (01) ==
LOC: HO.US 10:10
PROVIDERS: PCP Nurse Practitioner Family; Visit Provider Internal Medicine Hypertension Specialist
DX: N28.1 Cyst of kidney, acquired (principal)
CPT/HCPCS: 76775

== ENCOUNTER 2024-02-05 10:34 | Outpatient (AMB) | payer OTHER, SELFPAY ==
[2024-02-05 11:31] VITALS: BP 132/80; PULSE 88; RESP 13; O2SAT 99; BMI 46.7
--- NOTE | 2024-02-05 11:31 | A.OFFPC_ITS ---
Vital Signs 02/05/24 11:31 Height 5 ft 1 in Weight 247 lb BMI 46.7 BP 132/80 Blood Pressure Location Lt brachial Position Sitting Respiration 13 Pulse 88 Pulse Source Pulse Oximeter Pulse Oximetry (%) 99 Oxygen Delivery Method Room Air Intake Visit Reasons: JOEL from [facility] Intake Note: Patient reports she is switching from [facility] O[facility]Jared due to miscommunication between the two. Patient reports she needs her electrolytes drawn, she has been experiencing this metabolic imbalance for about 3 months. Patient reports she had an ultrasound done and does not know the results. Patient is concerned for feeling weakness, shaking, and unsteady gate. Flatwork Washer Required: No Accompanied by: Self / Same As Patient Allergies iodine Allergy (Severe, Verified 02/05/24 11:36) Anaphylaxis seafood Allergy (Severe, Verified 02/05/24 11:36) Anaphylaxis yellow dye Allergy (Severe, Verified 02/05/24 11:36) Seizure zine Allergy (Severe, Uncoded 02/05/24 11:36) seizures Tobacco use date assessed: 01/09/24 Fall risk assessment: 2 + Falls in past year Last assessed Fall Risk: 02/05/24 Dental Screening Dental Screen Date: 11/03/23 HPI HPI Comments History of Present Illness Details 68-year-old female with bipolar disorder , depression, anxiety, peptic ulcer disease, GERD, osteoporosis, diabetes type 2, osteoarthritis, COPD, CKD 3a, proteinuria, coronary artery disease, renal mass, CVA with residual deficit (2006), left hemiparesis, diabetic peripheral neuropathy, history of DVT/PE presenting for follow up Recently has had issues with electrolyte disturbances most notable low magnesium. She was hospitalized in november for muscle cramps, weakness and tremors. Received IV mag, discharged on oral magnesium. Saw nephrology as outpatient. US normal. Mag continues to be low. Patient continues to have some cramping and tremors. She was advised to come off PPI. Has been using pepcid with minimal relief. Diabetes-on metformin 500mg twice daily. Denies diarrhea, vomiting. Does endorse chronic dyspepsia, heartburn. ROS see HPI PHYSICAL EXAM: GENERAL: Alert and oriented x 3. NAD EYES: EOMI. Anicteric. HENT: Moist mucous membranes. No scleral icterus. No cervical lymphadenopathy. LUNGS: Clear to auscultation bilaterally. CARDIOVASCULAR: Regular rate and rhythm. No murmur. No JVD. ABDOMEN: Soft, non-tender +bs EXTREMITIES: No edema. Non-tender. SKIN: No rashes or lesions. Warm. NEUROLOGIC: No focal neurological deficits. CN II-XII grossly intact PSYCHIATRIC: Cooperative. Appropriate mood and affect [facility] Medical History Uterine cancer Bipolar 1 disorder Depression Anxiety Peptic ulcer GERD (gastroesophageal reflux disease) Back injury Osteoporosis Diabetes Arthritis Stroke COPD (chronic obstructive pulmonary disease) Surgical History H/O right heart catheterization Hx of cholecystectomy H/O hernia repair H/O: hysterectomy Hx of appendectomy H/O lumpectomy Family History Mother Breast cancer Bone cancer Father Diabetes Cardiovascular disease Maternal Grandmother High blood pressure Diabetes Cardiovascular disease Social History Housing: Other (M) Housing Other:: Mobile Home Patient Tobacco Use Status: Former Tobacco user Tobacco use type: Cigarette Cigarette Packs Per Day: 3 Cigarettes Per Day: 60 Years Smoked: 30 e-Cigarette/Vaping Use: Never Used service: No Current occupational status: retired Cognitive needs: No Hearing needs: Yes Vision needs: No Questionnaire Thrive Questionnaire Date Thrive assessed: 12/26/23 GEETA-7 AMB Questionnaire GEETA-7 Date GEETA - 7 assessed: 08/18/23 Source: Developed by Drs. Gurjit White, Yahaira Kent, Yakov Helms and colleagues, with an educational talia from [employer]. Physical exam (Primary Care) Vital Signs: Last Vital Signs Pulse 88 02/05/24 11:31 Resp 13 02/05/24 11:31 BP 132/80 02/05/24 11:31 Pulse Ox 99 02/05/24 11:31 Oxygen Delivery Method Room Air 02/05/24 11:31 BMI result Body Mass Index 46.7 Tobacco/Smoking Status: Tobacco use Status Tobacco use date assessed 01/09/24 02/05/24 11:37 Patient Tobacco Use Status Former Tobacco user 02/05/24 11:37 Tobacco use type Cigarette 02/05/24 11:37 e-Cigarette/Vaping Use Never Used 02/05/24 11:37 Thrive Assessment: Date of Thrive Assessment Date Thrive assessed 12/26/23 02/05/24 11:37 Assessment and Plan Assessment & Plan (1) Diabetes: Code(s): E11.9 - Type 2 diabetes mellitus without complications Qualifiers: Chronic kidney disease stage: stage 3 (moderate) Chronic kidney disease stage 3 subtype: stage 3a (GFR 45-59) Diabetes mellitus complication detail: with chronic kidney disease Diabetes mellitus complication status: with kidney complications Diabetes mellitus terminal make up operator insulin use: without terminal make up operator use Diabetes mellitus type: type 2 Qualified Code(s): E11.22 - Type 2 diabetes mellitus with diabetic chronic kidney disease; N18.31 - Chronic kidney disease, stage 3a Plan: Monitor labs. Generally well controlled (2) Osteoporosis: Code(s): M81.0 - Age-related osteoporosis without current pathological fracture Qualifiers: Osteoporosis type: age-related Presence of current pathological fracture: without current pathological fracture Qualified Code(s): M81.0 - Age- related osteoporosis without current pathological fracture (3) Hyperparathyroidism: Code(s): E21.3 - Hyperparathyroidism, unspecified Plan: Unknown primary v secondary (4) Hypomagnesemia: Code(s): E83.42 - Hypomagnesemia Plan: Increase magnesium to 3 tab po BID (5) DM (diabetes mellitus), type 2 with renal complications: Comment: On metformin ER 500 mg p.o. b.i.d.. Hemoglobin A1c 6.3% Diabetic eye exam [facility] 10/2023 Code(s): E11.29 - Type 2 diabetes mellitus with other diabetic kidney complication Qualifiers: Chronic kidney disease stage: stage 3 (moderate) Chronic kidney disease stage 3 subtype: stage 3a (GFR 45-59) Diabetes mellitus complication detail: with chronic kidney disease Diabetes mellitus terminal make up operator insulin use: without chcf use Qualified Code(s): E11.22 - Type 2 diabetes mellitus with diabetic chronic kidney disease; N18.31 - Chronic kidney disease, stage 3a Orders: Orders Hemoglobin A1c 02/05/24 E11.22 - Type 2 diabetes mellitus with diabetic chronic kidney disease, E21.3 - Hyperparathyroidism, unspecified, M81.0 - Age-related osteoporosis without current pathological fracture, N18.31 - Chronic kidney disease, stage 3a, R79.89 - Other specified abnormal findings of blood chemistry, Z87.11 - Personal history of peptic ulcer disease TSH reflex Free T4 02/05/24 E11.22 - Type 2 diabetes mellitus with diabetic chronic kidney disease, E21.3 - Hyperparathyroidism, unspecified, M81.0 - Age- related osteoporosis without current pathological fracture, N18.31 - Chronic kidney disease, stage 3a, R79.89 - Other specified abnormal findings of blood chemistry, Z87.11 - Personal history of peptic ulcer disease H pylori Ag Stool 02/05/24 R10.13 - Epigastric pain Phosphorus 02/05/24 E83.39 - Other disorders of phosphorus metabolism, N18.9 - Chronic kidney disease, unspecified Magnesium 02/05/24 E11.22 - Type 2 diabetes mellitus with diabetic chronic kidney disease, E21.3 - Hyperparathyroidism, unspecified, M81.0 - Age-related osteoporosis without current pathological fracture, N18.31 - Chronic kidney disease, stage 3a, R79.89 - Other specified abnormal findings of blood chemistry, Z87.11 - Personal history of peptic ulcer disease Vitamin D 1,25 dihydroxy 02/05/24 E11.22 - Type 2 diabetes mellitus with diabetic chronic kidney disease, E21.3 - Hyperparathyroidism, unspecified, M81.0 - Age-related osteoporosis without current pathological fracture, N18.31 - Chronic kidney disease, stage 3a, R79.89 - Other specified abnormal findings of blood chemistry, Z87.11 - Personal history of peptic ulcer disease Parathyroid Hormone Intact 02/05/24 E11.22 - Type 2 diabetes mellitus with diabetic chronic kidney disease, E21.3 - Hyperparathyroidism, unspecified, M81.0 - Age-related osteoporosis without current pathological fracture, N18.31 - Chronic kidney disease, stage 3a, R79.89 - Other specified abnormal findings of blood chemistry, Z87.11 - Personal history of peptic ulcer disease Comprehensive Met. Panel 02/05/24 E11.22 - Type 2 diabetes mellitus with diabetic chronic kidney disease, E21.3 - Hyperparathyroidism, unspecified, M81.0 - Age-related osteoporosis without current pathological fracture, N18.31 - Chronic kidney disease, stage 3a, R79.89 - Other specified abnormal findings of blood chemistry, Z87.11 - Personal history of peptic ulcer disease XR DEXA axial skeleton 02/05/24 E11.22 - Type 2 diabetes mellitus with diabetic chronic kidney disease, E21.3 - Hyperparathyroidism, unspecified, M81.0 - Age-re lated osteoporosis without current pathological fracture, N18.31 - Chronic kidney disease, stage 3a, R79.89 - Other specified abnormal findings of blood chemistry, Z87.11 - Personal history of peptic ulcer disease Referrals Gastroenterology Referral R10.13 - Epigastric pain, Z87.11 - Personal history of peptic ulcer disease Endocrinology Referral E11.22 - Type 2 diabetes mellitus with diabetic chronic kidney disease, M81.0 - Age-related osteoporosis without current pathological fracture, N18.31 - Chronic kidney disease, stage 3a, R79.89 - Other specified abnormal findings of blood chemistry Medications: New sucralfate 10 mL PO QIDACHS 420 mL 3RF primidone 50 mg PO BEDTIME 90 tabs 3RF Changed From magnesium chloride 143 mg (2 x 71.5 mg) PO BID 180 tabs 0RF To magnesium chloride (Slow-Mag) 214.5 mg (3 x 71.5 mg) PO BID 540 tabs 3RF 90 days Refilled metformin ER 500 mg PO BID 180 tabs 3RF 90 days Coding Level of Care Code Est Pt Level 5 (76831) Diagnoses Type 2 diabetes mellitus with stage 3a chronic kidney disease, without long-term current use of insulin E11.22; N18.31 Chronic kidney disease stage: stage 3 (moderate) Chronic kidney disease stage 3 subtype: stage 3a (GFR 45-59) Diabetes mellitus complication detail: with chronic kidney disease Diabetes mellitus complication status: with kidney complications Diabetes mellitus chcf insulin use: without chcf use Diabetes mellitus type: type 2 Age-related osteoporosis without current pathological fracture M81.0 Osteoporosis type: age-related Presence of current pathological fracture: without current pathological fracture Hyperparathyroidism E21.3 Hypomagnesemia E83.42 Type 2 diabetes mellitus with stage 3a chronic kidney disease, without long-term current use of insulin E11.22; N18.31 Chronic kidney disease stage: stage 3 (moderate) Chronic kidney disease stage 3 subtype: stage 3a (GFR 45-59) Diabetes mellitus complication detail: with chronic kidney disease Diabetes mellitus terminal make up operator insulin use: without chcf use Time Spent (min) 53
== END 2024-02-05 12:06 | disposition home or self-care (01) ==
PROVIDERS: PCP Nurse Practitioner Family; Visit Provider Internal Medicine
DX: E11.22 Type 2 diabetes mellitus with diabetic chronic kidney disease (principal); N18.31 Chronic kidney disease, stage 3a; M81.0 Age-related osteoporosis without current pathological fracture; E21.3 Hyperparathyroidism, unspecified; E83.42 Hypomagnesemia
CPT/HCPCS: 99215

== ENCOUNTER 2024-02-05 12:10 | Outpatient (REF) | payer OTHER, SELFPAY ==
[2024-02-05 14:40] LABS: Appearance Urine Clear; Color Urine Dark Yellow; Glucose Urine UA 250 mg/dL (Negative); Leukocyte Esterase Urine Trace (Negative); Nitrite Urine Negative (Negative); PH 5.5 (5.0-9.0); Specific Gravity - Urine 1.025 (1.005-1.025); UMIC TRIGGER UACC YES; Urine Blood Negative (Negative); Urine Ketones Trace mg/dL (Negative); Urine Protein 300 (3+) mg/dL (Neg-Trace)
[2024-02-05 14:44] LABS: Estimated Average Glucose 151 mg/dL; Hemoglobin A1c % 6.9 % (<6.0)
[2024-02-05 14:45] LABS: Bacteria Urine Trace (None Seen); RBC Urine 0-2 /HPF (0-2); UACC Culture Trigger YES
[2024-02-05 14:58] LABS: Alanine Aminotransferase 12 U/L (0-31); Albumin Level 4.2 g/dL (3.5-5.0); Alkaline Phosphatase 87 U/L (39-117); Anion Gap 12 (12-20); Aspartate Amino Transferase 15 U/L (5-31); Bilirubin Total 0.3 mg/dL (0.0-1.0); Blood Urea Nitrogen 17 mg/dL (9-16); Calcium 10.4 mg/dL (8.4-10.2); Carbon Dioxide 24 mmol/L (22-29); Chloride 108 mmol/L (96-108); Estimated Glomerular Filt Rate 57; Glucose Random 172 mg/dL (60-115); Magnesium 1.5 mg/dL (1.6-2.6); Phosphorus 2.7 mg/dL (2.7-4.5); Potassium 3.7 mmol/L (3.3-5.1); Sodium 140 mmol/L (135-145); Total Protein 7.4 g/dL (6.5-8.0)
[2024-02-05 15:07] LABS: TSH reflex Free T4 0.98 uIU/mL (0.32-4.0)
[2024-02-05 15:43] LABS: Parathyroid Hormone Intact 137.8 pg/mL (8.7-77.1)
[2024-02-09 18:13] LABS: VITAMIN D (1,25 OH) D3 50 pg/mL; Vit D (1,25-Dihydroxy) Total 50 pg/mL (18-72); Vitamin D (1,25 OH) D2 <8 pg/mL
== END 2024-02-05 12:11 | disposition home or self-care (01) ==
LOC: HO.WFDLDS 12:10
PROVIDERS: Nurse Practitioner Family; Visit Provider Internal Medicine
DX: M81.0 Age-related osteoporosis without current pathological fracture (principal); E83.39 Other disorders of phosphorus metabolism; N18.9 Chronic kidney disease, unspecified; E83.42 Hypomagnesemia; R79.89 Other specified abnormal findings of blood chemistry; Z87.11 Personal history of peptic ulcer disease; E21.3 Hyperparathyroidism, unspecified; E11.22 Type 2 diabetes mellitus with diabetic chronic kidney disease; N18.31 Chronic kidney disease, stage 3a; R82.90 Unspecified abnormal findings in urine
CPT/HCPCS: 36415; 80053; 81001; 82652; 83036; 83735; 83970; 84100; 84443; 87086

== ENCOUNTER 2024-02-14 10:43 | Outpatient (AMB) | payer OTHER, SELFPAY ==
--- NOTE | 2024-02-14 10:46 | A.OFFVIS_ITS ---
Vital Signs 02/14/24 10:47 Height 5 ft 1 in Weight 248 lb 0.321 oz BMI 46.9 BP 102/70 Blood Pressure Location Lt brachial Position Sitting Pulse 85 Pulse Source Pulse Oximeter Intake Visit Reasons: Elevated PTH-LVM Intake Note: New patient present today for elevated PTH office visit. Senior Education Specialist Required: No Accompanied by: Self / Same As Patient Allergies iodine Allergy (Severe, Verified 02/14/24 10:51) Anaphylaxis seafood Allergy (Severe, Verified 02/14/24 10:51) Anaphylaxis yellow dye Allergy (Severe, Verified 02/14/24 10:51) Seizure zine Allergy (Severe, Uncoded 02/14/24 10:51) seizures HPI Comments Details: 68 YO F with PMHx CKD who is seen in consultation at the request of PCP for increased parathyroid level First noted to have high PTH . Recently sent Not Currently using Calcium supplement . Not Takes Vitamin D daily. Currently using HCTZ. Kidney stones: No Osteoporosis: No - has bone density 02/29/2024 History of [place] use: used [place] 23 yrs 5 yrs a go Biotin use: No Family history of high calcium or kidney stones: No Renal imaging: Yes DXA: Labs: [facility] Medical History Uterine cancer Bipolar 1 disorder Depression Anxiety Peptic ulcer GERD (gastroesophageal reflux disease) Back injury Osteoporosis Diabetes Arthritis Stroke COPD (chronic obstructive pulmonary disease) Surgical History H/O right heart catheterization Hx of cholecystectomy H/O hernia repair H/O: hysterectomy Hx of appendectomy H/O lumpectomy Family History Mother Breast cancer Bone cancer Father Diabetes Cardiovascular disease Maternal Grandmother High blood pressure Diabetes Cardiovascular disease Social History Housing: Other (M) Housing Other:: Mobile Home Patient Tobacco Use Status: Former Tobacco user Tobacco use type: Cigarette Cigarette Packs Per Day: 3 Cigarettes Per Day: 60 Years Smoked: 30 e-Cigarette/Vaping Use: Never Used service: No Current occupational status: retired Cognitive needs: No Hearing needs: Yes Vision needs: No Physical Exam There are no Cushingoid features. Neck exam shows nl thyroid about 15 gms. Lungs CTA. Heart S1 S2 Reg R/R -MRG. Abdomina exam benign . Muscle strength 5/5 proximally. No hirsuitism present. No striae present. Skin exam without lesion Assessment & Plan Assessment & Plan (1) Elevated parathyroid hormone: Code(s): R79.89 - Other specified abnormal findings of blood chemistry Category: Medical Plan: This 68-year-old white female sent to endocrinology for evaluation of elevated parathyroid levels as well as mild elevation in calcium suggestive of primary hyperparathyroidism. Rule out an element of secondary hyperparathyroidism due to vitamin-D deficiency. She had a normal renal ultrasound without kidney stones Plan is to recheck calcium, albumin, ionized calcium, PTH, 25 hydroxy vitamin-D, 24 hour urine for calcium and creatinine. Further workup based on the above. Will message nephrology to see if they want to obtain a 24 hour urine for magnesium to see if the patient is losing magnesium in the urine Orders: Orders Vitamin D 25-OH Total Today R79.89 - Other specified abnormal findings of blood chemistry XR DEXA appendicular skeleton Today R79.89 - Other specified abnormal findings of blood chemistry Calcium, Ionized Today R79.89 - Other specified abnormal findings of blood chemistry Calcium Today R79.89 - Other specified abnormal findings of blood chemistry Calcium, 24 Hr Ur Today R79.89 - Other specified abnormal findings of blood chemistry Creatinine, 24 Hr Group Today R79.89 - Other specified abnormal findings of blood chemistry Albumin Level Today R79.89 - Other specified abnormal findings of blood chem istry Parathyroid Hormone Intact Today R79.89 - Other specified abnormal findings of blood chemistry Coding Level of Care Code New Pt Level 4 (77515) Diagnoses Elevated parathyroid hormone R79.89
[2024-02-14 10:47] VITALS: BP 102/70; PULSE 85; BMI 46.9
== END 2024-02-14 11:27 | disposition home or self-care (01) ==
PROVIDERS: PCP Nurse Practitioner Family; Visit Provider Internal Medicine Endocrinology, Diabetes & Metabolism
DX: R79.89 Other specified abnormal findings of blood chemistry (principal)
CPT/HCPCS: 99204

== ENCOUNTER → 2024-02-14 10:43 | Outpatient (BNVA) | payer OTHER, SELFPAY | PROVIDERS: PCP Nurse Practitioner Family; Visit Provider Internal Medicine Endocrinology, Diabetes & Metabolism | DX: R79.89 Other specified abnormal findings of blood chemistry (principal) | CPT/HCPCS: 99202 ==

== ENCOUNTER 2024-02-20 11:03 | Outpatient (REF) | payer OTHER, SELFPAY ==
[2024-02-20 18:30] LABS: Albumin Level 4.3 g/dL (3.5-5.0); Calcium 10.3 mg/dL (8.4-10.2); Magnesium 1.4 mg/dL (1.6-2.6); Phosphorus 2.4 mg/dL (2.7-4.5)
[2024-02-21 05:29] LABS: Parathyroid Hormone Intact 126.4 pg/mL (8.7-77.1)
[2024-02-23 21:54] LABS: Calcium, Ionized 5.3 mg/dL (4.7-5.5)
== END 2024-02-20 11:04 | disposition home or self-care (01) ==
LOC: HO.WFDLDS 11:03
PROVIDERS: Internal Medicine; Visit Provider Internal Medicine Endocrinology, Diabetes & Metabolism
DX: R79.89 Other specified abnormal findings of blood chemistry (principal); Z87.11 Personal history of peptic ulcer disease; E21.3 Hyperparathyroidism, unspecified; E11.22 Type 2 diabetes mellitus with diabetic chronic kidney disease; N18.31 Chronic kidney disease, stage 3a; M81.0 Age-related osteoporosis without current pathological fracture; N81.9 Female genital prolapse, unspecified
CPT/HCPCS: 36415; 82040; 82306; 82310; 82330; 83735; 83970; 84100

== ENCOUNTER 2024-03-04 13:43 | Outpatient (AMB) | payer OTHER, SELFPAY ==
--- NOTE | 2024-03-04 13:21 | A.OFFPC_ITS ---
Intake Visit Reasons: Lab results Allergies iodine Allergy (Severe, Verified 02/14/24 10:51) Anaphylaxis seafood Allergy (Severe, Verified 02/14/24 10:51) Anaphylaxis yellow dye Allergy (Severe, Verified 02/14/24 10:51) Seizure zine Allergy (Severe, Uncoded 02/14/24 10:51) seizures Tobacco use date assessed: 01/09/24 Dental Screening Dental Screen Date: 11/03/23 HPI HPI Comments 2 History of Present Illness Details 68-year-old female with bipolar disorder , depression, anxiety, peptic ulcer disease, GERD, osteoporosis, diabetes type 2, osteoarthritis, COPD, CKD 3a, proteinuria, coronary artery disease, renal mass, CVA with residual deficit (2006), left hemiparesis, diabetic peripheral neuropathy, history of DVT/PE presenting for follow up Recently has had issues with electrolyte disturbances most notable low magnesium. She was hospitalized in november for muscle cramps, weakness and tremors. Received IV mag, discharged on oral magnesium. Saw nephrology as outpatient. US normal. Mag continues to be low. Patient continues to have some cramping and tremors. She was advised to come off PPI. Has been using pepcid with minimal relief. Patient was taking 2 slow mag twice daily, increased to 3 twice daily. Last magnesium still low. Will increase to 3 TID. Patient has upcoming appt with nephrology. Saw endocrine for hyperPTH. Will follow up in fall. Diabetes-controlledon metformin 500mg twice daily. Denies diarrhea, vomiting. Does endorse chronic dyspepsia, heartburn. ROS see HPI PHYSICAL EXAM: telehealth [facility] Medical History Uterine cancer Bipolar 1 disorder Depression Anxiety Peptic ulcer GERD (gastroesophageal reflux disease) Back injury Osteoporosis Diabetes Arthritis Stroke COPD (chronic obstructive pulmonary disease) Surgical History H/O right heart catheterization Hx of cholecystectomy H/O hernia repair H/O: hysterectomy Hx of appendectomy H/O lumpectomy Family History Mother Breast cancer Bone cancer Father Diabetes Cardiovascular disease Maternal Grandmother High blood pressure Diabetes Cardiovascular disease Social History (Reviewed 02/14/24 @ 10:53 by KIMMIE Yanes Housing: Other Housing Other:: Mobile Home Patient Tobacco Use Status: Former Tobacco user Tobacco use type: Cigarette Cigarette Packs Per Day: 3 Cigarettes Per Day: 60 Years Smoked: 30 Packs Per Year: 90 Packs per year/per ci.00 e-Cigarette/Vaping Use: Never Used service: No Current occupational status: retired Cognitive needs: No Hearing needs: Yes Vision needs: No Questionnaire Thrive Questionnaire Date Thrive assessed: 12/26/23 GEETA-7 AMB Questionnaire GEETA-7 Date GEETA - 7 assessed: 08/18/23 Source: Developed by Drs. Gurjit White, Yahaira Kent, Yakov Helms and colleagues, with an educational talia from [employer]. Physical exam (Primary Care) Tobacco/Smoking Status: Tobacco use Status Tobacco use date assessed 01/09/24 03/04/24 13:22 Patient Tobacco Use Status Former Tobacco user 03/04/24 13:22 Tobacco use type Cigarette 03/04/24 13:22 e-Cigarette/Vaping Use Never Used 03/04/24 13:22 Thrive Assessment: Date of Thrive Assessment Date Thrive assessed 12/26/23 03/04/24 13:22 Telehealth Telehealth Telehealth Platform: Telephone Location of provider rendering services: practice address Location of patient: address on file Patient Identification confirmed using: Name, : Yes Telehealth method: voice only Patient verbally consented to treatment: Yes Patient verbally consented to billing insurance company: Yes Patient informed of any privacy concerns related to visit: Yes Minutes spent on Phone/Video with Pt.: 22 Assessment and Plan Assessment & Plan (1) Electrolyte disturbance: Code(s): E87.8 - Other disorders of electrolyte and fluid balance, not elsewhere classified Plan: Increase magnesium to 3 tab three times daily. Follow up nephrology, endo Medications: Changed From magnesium chloride (Slow-Mag) 214.5 mg (3 x 71.5 mg) PO BID 90 days 540 tabs 3RF To magnesium chloride (Slow-Mag) 214.5 mg (3 x 71.5 mg) PO TID 810 tabs 3RF 90 days Refilled sod phos di, mono-K phos mono 250 mg (U-Yptt-Omzoson) 1 tab PO BID 60 tabs 3RF Coding Level of Care Code Tele Est Pt Level 3 (90045) Diagnoses Electrolyte disturbance E87.8
== END 2024-03-04 13:43 | disposition home or self-care (01) ==
LOC: HO.HMGFM 13:43
PROVIDERS: PCP Internal Medicine; Visit Provider Internal Medicine
DX: E87.8 Other disorders of electrolyte and fluid balance, not elsewhere classified (principal)
CPT/HCPCS: 99443

== ENCOUNTER 2024-03-19 12:33 | Outpatient (REF) | payer OTHER, SELFPAY ==
--- NOTE | ~2024-03-19 | MM_ITS ---
EXAMINATION: BONE DENSITOMETRY CLINICAL INDICATION: Hyperparathyroidism. COMPARISON: This is the patient's baseline examination. TECHNIQUE: Using a [employer] DXA System (software version: 13.1) manufactured by [employer], dual-energy x-ray absorptiometry was performed of the lumbar spine, left hip, and left forearm radius 33%. The images are of good technical quality. Summary results are attached. FINDINGS: LEFT FEMUR, NECK: BMD 0.835 g/cm2, Z-score -0.6, T-score -1.5, osteopenia. LEFT FEMUR, TOTAL: BMD 0.914 g/cm2, Z-score -0.1, T-score -0.7, normal. AP SPINE L1-L4: BMD 1.173 g/cm2, Z-score 0.4, T-score -0.1, normal. LEFT FOREARM RADIUS 33%: BMD 0.897 g/cm2, Z-score 2.0, T-score 0.2, normal. IDENTIFIED RISK FACTORS: Early menopause, bilateral oophorectomy, family history (parent hip fracture), height loss, hyperparathyroid, hysterectomy, low calcium intake, osteoporosis, recurrent falls, rheumatoid arthritis, secondary osteoporosis (type 1 diabetes, anorexia or bulimia). HISTORY OF FRACTURE: None listed. MEDICATIONS: None listed. MM/XR DEXA appendicular skeleton IMPRESSION: 1. DIAGNOSIS: Osteopenia based on the lowest T-score value of -1.5 in the femoral neck applying World Health Organization criteria. 2. 10-YEAR FRACTURE RISK PREDICTION, FRAX: Major osteoporotic fracture (clinical spine, forearm, hip or shoulder) 16.7%. Hip fracture 2.7%. 3. Treatment Recommendations: NOF guidelines recommend consideration for treatment in postmenopausal women and men age 50 and older presenting with the following: -A hip or vertebral (clinical or morphometric) fracture. -T-score less than or equal to -2.5 at the femoral neck or spine after appropriate evaluation to exclude secondary causes. -Low bone mass at the hip or spine and a 10-year fracture probability by FRAX of greater than or equal to 3% for hip fracture or greater than or equal to 20% for major osteoporotic fracture based on the [place] adapted WHO algorithm. 4. Other Recommendations: All treatment decisions require clinical judgment and consideration of individual patient factors, including patient preferences, comorbidities, previous drug use, risk factors not captured in the FRAX model (e.g. frailty, falls, vitamin D deficiency, increased bone turnover, interval significant decline in bone density) and possible under or overestimation of fracture risk by FRAX. Additional medical evaluation for secondary cause of low bone mineral density may be appropriate. FUTURE SCAN RECOMMENDATION: People with diagnosed cases of osteoporosis or at high risk for fracture should have regular bone mineral density tests. For patients eligible for Medicare, routine testing is allowed once every 2 years. The testing frequency can be increased to one year for patients who have rapidly progressing disease, those who are receiving or discontinuing medical therapy to restore bone mass, or have additional risk factors. Electronically signed by: Pavel Guy MD 03/22/2024 08:15 AM EDT
== END 2024-03-19 12:34 | disposition home or self-care (01) ==
LOC: HO.MAMMO 12:33
PROVIDERS: PCP Internal Medicine; Visit Provider Internal Medicine
DX: Z13.820 Encounter for screening for osteoporosis (principal); R79.89 Other specified abnormal findings of blood chemistry; Z87.11 Personal history of peptic ulcer disease; E21.3 Hyperparathyroidism, unspecified
CPT/HCPCS: 77081

== ENCOUNTER 2024-03-29 14:32 | Outpatient (AMB) | payer OTHER, SELFPAY ==
--- NOTE | 2024-03-29 14:46 | A.OFFPC_ITS ---
Vital Signs 03/29/24 14:51 Height 5 ft 1 in Weight 244 lb BMI 46.1 BP 110/66 Blood Pressure Location Rt brachial Position Sitting Pulse 103 H Pulse Source Pulse Oximeter Pulse Oximetry (%) 96 Oxygen Delivery Method Room Air Intake Visit Reasons: follow up Intake Note: Follow up. Needs refill on Famotidine 40mg. Needs U-Ndpz-Jjarolc redirected to Jennifer. Water Control Supervisor Required: No Allergies iodine Allergy (Severe, Verified 03/29/24 14:47) Anaphylaxis seafood Allergy (Severe, Verified 03/29/24 14:47) Anaphylaxis yellow dye Allergy (Severe, Verified 03/29/24 14:47) Seizure zine Allergy (Severe, Uncoded 03/29/24 14:47) seizures Tobacco use date assessed: 01/09/24 Dental Screening Dental Screen Date: 11/03/23 HPI HPI Comments History of Present Illness Details 68-year-old female with bipolar disorder , depression, anxiety, peptic ulcer disease, GERD, osteoporosis, diabetes type 2, osteoarthritis, COPD, CKD 3a, proteinuria, coronary artery disease, renal mass, CVA with residual deficit (2006), left hemiparesis, diabetic peripheral neuropathy, history of DVT/PE presenting for follow up Recently has had issues with electrolyte disturbances most notable low magnesium. She was hospitalized in november for muscle cramps, weakness and tremors. Received IV mag, discharged on oral magnesium. Saw nephrology as outpatient. US normal. Mag continues to be low. Patient continues to have some cramping and tremors. She was advised to come off PPI. Has been using pepcid with minimal relief. Patient was taking 2 slow mag twice daily, increased to 3 twice daily. Last magnesium still low, then increased to 3 TID and no lab since. Diabetes-controlled on metformin 500mg twice daily. Denies diarrhea, vomiting. She will see endocrinology again for follow up on hyperPTH Chronic dyspepsia, heartburn. Worsening. She intermittently vomits. She has frequent stomach cramping, decreased appetite. She was on PPI which was stopped on nephro recommendations. She was using pepcid, ran out and has been taking tagament for the past few days. She says she has had very mild lessening of symptoms since restarting med. ROS see HPI PHYSICAL EXAM: GENERAL: Alert and oriented x 3. NAD EYES: EOMI. Anicteric. HENT: Moist mucous membranes. No scleral icterus. No cervical lymphadenopathy. LUNGS: Clear to auscultation bilaterally. CARDIOVASCULAR: Regular rate and rhythm. No murmur. No JVD. ABDOMEN: Soft, non-tender +bs EXTREMITIES: No edema. Non-tender. SKIN: No rashes or lesions. Warm. NEUROLOGIC: No focal neurological deficits. CN II-XII grossly intact PSYCHIATRIC: Cooperative. Appropriate mood and affect [facility] Medical History Uterine cancer Bipolar 1 disorder Depression Anxiety Peptic ulcer GERD (gastroesophageal reflux disease) Back injury Osteoporosis Diabetes Arthritis Stroke COPD (chronic obstructive pulmonary disease) Surgical History H/O right heart catheterization Hx of cholecystectomy H/O hernia repair H/O: hysterectomy Hx of appendectomy H/O lumpectomy Family History Mother Breast cancer Bone cancer Father Diabetes Cardiovascular disease Maternal Grandmother High blood pressure Diabetes Cardiovascular disease Social History Housing: Other Housing Other:: Mobile Home Patient Tobacco Use Status: Former Tobacco user Tobacco use type: Cigarette Cigarette Packs Per Day: 3 Cigarettes Per Day: 60 Years Smoked: 30 e-Cigarette/Vaping Use: Never Used service: No Current occupational status: retired Cognitive needs: No Hearing needs: Yes Vision needs: No Questionnaire Thrive Questionnaire Date Thrive assessed: 12/26/23 GEETA-7 AMB Questionnaire GEETA-7 Date GEETA - 7 assessed: 08/18/23 Source: Developed by Drs. Gurjit White, Yahaira Kent, Yakov Helms and colleagues, with an educational talia from [employer]. Physical exam (Primary Care) Vital Signs: Last Vital Signs Pulse 103 H 03/29/24 14:51 BP 110/66 03/29/24 14:51 Pulse Ox 96 03/29/24 14:51 Oxygen Delivery Method Room Air 03/29/24 14:51 BMI result Body Mass Index 46.1 Tobacco/Smoking Status: Tobacco use Status Tobacco use date assessed 01/09/24 03/29/24 14:54 Patient Tobacco Use Status Former Tobacco user 03/29/24 14:54 Tobacco use type Cigarette 03/29/24 14:54 e-Cigarette/Vaping Use Never Used 03/29/24 14:54 Thrive Assessment: Date of Thrive Assessment Date Thrive assessed 12/26/23 03/29/24 14:54 Assessment and Plan Assessment & Plan (1) DM (diabetes mellitus), type 2 with renal complications: Code(s): E11.29 - Type 2 diabetes mellitus with other diabetic kidney complication Qualifiers: Chronic kidney disease stage: stage 3 (moderate) Chronic kidney disease stage 3 subtype: stage 3a (GFR 45-59) Diabetes mellitus complication detail: with chronic kidney disease Diabetes mellitus intermodal truck driver insulin use: without intermodal truck driver use Qualified Code(s): E11.22 - Type 2 diabetes mellitus with diabetic chronic kidney disease; N18.31 - Chronic kidney disease, stage 3a Plan: On metformin ER 500 mg p.o. b.i.d.. Controlled Di[facility] exam [facility] 10/2023 (2) GERD (gastroesophageal reflux disease): Code(s): K21.9 - Gastro-esophageal reflux disease without esophagitis Qualifiers: Esophagitis presence: without esophagitis Qualified Code(s): K21.9 - Gastro-esophageal reflux disease without esophagitis Plan: Continue pepcid OR tagamet. (3) Hyperparathyroidism: Code(s): E21.3 - Hyperparathyroidism, unspecified Plan: Follow up is scheduled with endocrinology. Recommend she complete ordered lab (4) Hypomagnesemia: Code(s): E83.42 - Hypomagnesemia Plan: Check level. Encouraged her to do her urine test. Orders: Orders Magnesium 03/29/24 E11.22 - Type 2 diabetes mellitus with diabetic chronic kidney disease, E87.8 - Other disorders of electrolyte and fluid balance, not elsewhere classified, N18.31 - Chronic kidney disease, stage 3a Comprehensive Met. Panel 03/29/24 E11.22 - Type 2 diabetes mellitus with diabetic chronic kidney disease, E87.8 - Other disorders of electrolyte and fluid balance, not elsewhere classified, N18.31 - Chronic kidney disease, stage 3a Referrals Open Access Screening Colonoscopy Referral Z12.11 - Encounter for screening for malignant neoplasm of colon, Z12.12 - Encounter for screening for malignant neoplasm of rectum Medications: New cimetidine 200 mg PO QIDACHS 120 tabs 3RF Coding Level of Care Code Est Pt Level 5 (91346) Diagnoses Type 2 diabetes mellitus with stage 3a chronic kidney disease, without long-term current use of insulin E11.22; N18.31 Chronic kidney disease stage: stage 3 (moderate) Chronic kidney disease stage 3 subtype: stage 3a (GFR 45-59) Diabetes mellitus complication detail: with chronic kidney disease Diabetes mellitus half-way insulin use: without intermodal truck driver use Gastroesophageal reflux disease without esophagitis K21.9 Esophagitis presence: without esophagitis Hyperparathyroidism E21.3 Hypomagnesemia E83.42
[2024-03-29 14:51] VITALS: BP 110/66; PULSE 103; O2SAT 96; BMI 46.1
== END 2024-03-29 15:28 | disposition home or self-care (01) ==
LOC: HO.HMGFM 14:32
PROVIDERS: PCP Internal Medicine; Visit Provider Internal Medicine
DX: E11.22 Type 2 diabetes mellitus with diabetic chronic kidney disease (principal); N18.31 Chronic kidney disease, stage 3a; K21.9 Gastro-esophageal reflux disease without esophagitis; E21.3 Hyperparathyroidism, unspecified; E83.42 Hypomagnesemia
CPT/HCPCS: 99214

== ENCOUNTER 2024-03-29 15:33 | Outpatient (REF) | payer OTHER, SELFPAY ==
[2024-03-29 17:44] LABS: Appearance Urine Cloudy; Color Urine Dark Yellow; Glucose Urine UA 100 mg/dL (Negative); Leukocyte Esterase Urine Negative (Negative); Nitrite Urine Negative (Negative); Specific Gravity - Urine 1.025 (1.005-1.025); UMIC TRIGGER UACC YES; Urine Blood Negative (Negative); Urine Ketones Trace mg/dL (Negative); Urine Protein 100 (2+) mg/dL (Neg-Trace)
[2024-03-29 17:50] LABS: Alanine Aminotransferase 14 U/L (0-31); Albumin Level 4.3 g/dL (3.5-5.0); Alkaline Phosphatase 87 U/L (39-117); Anion Gap 13 (12-20); Aspartate Amino Transferase 16 U/L (5-31); Bilirubin Total 0.3 mg/dL (0.0-1.0); Blood Urea Nitrogen 18 mg/dL (9-16); Calcium 10.6 mg/dL (8.4-10.2); Carbon Dioxide 25 mmol/L (22-29); Chloride 106 mmol/L (96-108); Estimated Glomerular Filt Rate 45; Glucose Random 201 mg/dL (60-115); Magnesium 1.6 mg/dL (1.6-2.6); Sodium 140 mmol/L (135-145); Total Protein 7.5 g/dL (6.5-8.0)
[2024-03-29 18:06] LABS: Bacteria Urine None Seen (None Seen); Calcium Oxalate Crystals Urine Present; Hyaline Casts Urine 0-2 /LPF (0-2); RBC Urine 0-2 /HPF (0-2); WBC Urine 0-5 /HPF (0-5)
== END 2024-03-29 15:34 | disposition home or self-care (01) ==
LOC: HO.WFDLDS 15:33
PROVIDERS: Referring Provider Nurse Practitioner Family; Visit Provider Internal Medicine
DX: E11.22 Type 2 diabetes mellitus with diabetic chronic kidney disease (principal); N18.31 Chronic kidney disease, stage 3a; E87.8 Other disorders of electrolyte and fluid balance, not elsewhere classified
CPT/HCPCS: 36415; 80053; 81001; 83735

== ENCOUNTER 2024-04-17 14:21 | Outpatient (AMB) | payer OTHER, SELFPAY ==
--- NOTE | 2024-04-17 14:28 | A.OFFVIS_ITS ---
Vital Signs 04/17/24 14:32 Height 5 ft 1 in Weight 242 lb 8.136 oz BMI 45.8 BP 104/59 L Blood Pressure Location Lt radial Position Sitting Pulse 77 Intake Visit Reasons: Epigastric Pain Intake Note: Sofiya presents in the office as a new patient for epigastric pains. CC: She states she has had issues with her stomach since November - she has had nausea and vomiting on and off. Her stomach is calming down since she is watching what she eats. Machine Sewer Required: No Allergies iodine Allergy (Severe, Verified 04/17/24 14:32) Anaphylaxis seafood Allergy (Severe, Verified 04/17/24 14:32) Anaphylaxis yellow dye Allergy (Severe, Verified 04/17/24 14:32) Seizure zine Allergy (Severe, Uncoded 04/17/24 14:32) seizures HPI Comments Details: 68 y.o F who is here for abd pain that has now resolved. Pt reports had been having epigastric pain with burning and nausea since November. At that time was also being investigated for hypercalcemia and hyperPTH and was attributed to that. Was also started on pepcid but pt did not have significant relief. She then decided to add cimetidine in the morning which took care of the sx. Pt has also noticed improvement in post prandial bloating since this. Pt also reports hx of gastric ulcer in her early 20s. Last colo 15 y ago in [facility]. Pt does not have any GI issues at present. Labs noted with anemia, normocytic. PFSH Medical History Uterine cancer Bipolar 1 disorder Depression Anxiety Peptic ulcer GERD (gastroesophageal reflux disease) Back injury Osteoporosis Diabetes Arthritis Stroke COPD (chronic obstructive pulmonary disease) Surgical History H/O right heart catheterization Hx of cholecystectomy H/O hernia repair H/O: hysterectomy Hx of appendectomy H/O lumpectomy Family History Mother Breast cancer Bone cancer Father Diabetes Cardiovascular disease Maternal Grandmother High blood pressure Diabetes Cardiovascular disease Social History Housing: Other Housing Other:: Mobile Home Patient Tobacco Use Status: Former Tobacco user Tobacco use type: Cigarette Cigarette Packs Per Day: 3 Cigarettes Per Day: 60 Years Smoked: 30 e-Cigarette/Vaping Use: Never Used service: No Current occupational status: retired Cognitive needs: No Hearing needs: Yes Vision needs: No Review of Systems Const All systems reviewed & are unremarkable except as noted in HPI and below Physical Exam Vital Signs: Last Vital Signs Pulse 77 04/17/24 14:32 BP 104/59 L 04/17/24 14:32 BMI result Body Mass Index 45.8 No apparent distress Nonicteric Alert and oriented x3, uses a walker to ambulate Assessment & Plan Assessment & Plan (1) Anemia: Code(s): D64.9 - Anemia, unspecified Category: Medical (2) History of gastric ulcer: Code(s): Z87.11 - Personal history of peptic ulcer disease Category: Medical (3) Abdominal pain: Code(s): R10.9 - Unspecified abdominal pain Category: Medical Plan Ddx include PUD, gastritis, esophagitis. Recommend EGD to r/o recurrence of gastric ulcer. Pt will also be booked for colo at the same time for complete evaluation of anemia. Plan: - OK to cont H2 blockers for now as has osteopenia - Labs as below - EGD/colo to be booked - PEG prep reviewed and instructions provided in written as well Follow up after procedures Orders: Orders Ferritin Today D64.9 - Anemia, unspecified Complete Blood Count no Diff Today D64.9 - Anemia, unspecified IRON PROFILE Today D64.9 - Anemia, unspecified Vitamin B12 and Folate Today D64.9 - Anemia, unspecified Medications: New peg 3350-electrolytes 236-22.74-6.74 -5.86 gram (Golytely) as per split prep instructions, until fecal effluent is clear 240 mL PO Q10M 4,000 mL 0RF colonoscopy Coding Level of Care Code New Pt Level 4 (57873) Diagnoses Anemia D64.9 History of gastric ulcer Z87.11 Abdominal pain R10.9
[2024-04-17 14:32] VITALS: BP 104/59; PULSE 77; BMI 45.8
== END 2024-04-17 15:35 | disposition home or self-care (01) ==
PROVIDERS: PCP Nurse Practitioner Family; Visit Provider Internal Medicine
DX: D64.9 Anemia, unspecified (principal); Z87.11 Personal history of peptic ulcer disease; R10.9 Unspecified abdominal pain
CPT/HCPCS: 99204

== ENCOUNTER → 2024-04-17 14:21 | Outpatient (BNVA) | payer OTHER, SELFPAY | PROVIDERS: PCP Nurse Practitioner Family; Visit Provider Internal Medicine | DX: R10.13 Epigastric pain (principal); D64.9 Anemia, unspecified; Z87.11 Personal history of peptic ulcer disease | CPT/HCPCS: 99202 ==

== ENCOUNTER 2024-09-27 10:00 | Outpatient (AMB) | payer OTHER, SELFPAY ==
--- NOTE | 2024-09-27 10:17 | MHC.PC.OV ---
Vital Signs 09/27/24 10:26 Height 5 ft 1 in Weight 253 lb 4 oz BMI 47.8 BP 130/88 Blood Pressure Location Rt brachial Position Sitting Respiration 16 Pulse 73 Pulse Source Pulse Oximeter Pulse Oximetry (%) 99 Oxygen Delivery Method Room Air Intake Visit Reasons: DM follow up - Meds Intake Note: Diabetes follow up Appellate Conferee Required: No Allergies iodine Allergy (Severe, Verified 09/27/24 10:22) Anaphylaxis seafood Allergy (Severe, Verified 09/27/24 10:22) Anaphylaxis yellow dye Allergy (Severe, Verified 09/27/24 10:22) Seizure zine Allergy (Severe, Uncoded 09/27/24 10:22) seizures Tobacco use date assessed: 01/09/24 Dental Screening Dental Screen Date: 11/03/23 HPI HPI Comments History of Present Illness Details 68-year-old female with bipolar disorder, depression, anxiety, peptic ulcer disease, GERD, osteoporosis, diabetes type 2, osteoarthritis, COPD, CKD 3a, proteinuria, coronary artery disease, renal mass, CVA with residual deficit (2006), left hemiparesis, diabetic peripheral neuropathy, history of DVT/PE presenting for follow up Recently has had issues with electrolyte disturbances most notable low magnesium. She was hospitalized in november for muscle cramps, weakness and tremors. Received IV mag, discharged on oral magnesium. Saw nephrology as outpatient. US normal. Mag continues to be low. Patient continues to have some cramping and tremors. She was advised to come off PPI. Has been using pepcid with minimal relief. Patient was taking 2 slow mag twice daily, increased to 3 twice daily. Last magnesium still low, then increased to 3 TID and no lab since. Diabetes-controlled on metformin 500mg twice daily. Denies diarrhea, vomiting. She will see endocrinology again for follow up on hyperPTH Chronic dyspepsia, heartburn. Worsening. She intermittently vomits. She has frequent stomach cramping, decreased appetite. She was on PPI which was stopped on nephro recommendations. She was using pepcid, ran out and has been taking tagament for the past few days. She says she has had very mild lessening of symptoms since restarting med. ROS see HPI PHYSICAL EXAM: GENERAL: Alert and oriented x 3. NAD EYES: EOMI. Anicteric. HENT: Moist mucous membranes. No scleral icterus. No cervical lymphadenopathy. LUNGS: Clear to auscultation bilaterally. CARDIOVASCULAR: Regular rate and rhythm. No murmur. No JVD. ABDOMEN: Soft, non-tender +bs EXTREMITIES: No edema. Non-tender. SKIN: No rashes or lesions. Warm. NEUROLOGIC: No focal neurological deficits. CN II-XII grossly intact PSYCHIATRIC: Cooperative. Appropriate mood and affect [facility] Medical History Uterine cancer Bipolar 1 disorder Depression Anxiety Peptic ulcer GERD (gastroesophageal reflux disease) Back injury Osteoporosis Diabetes Arthritis Stroke COPD (chronic obstructive pulmonary disease) Surgical History H/O right heart catheterization Hx of cholecystectomy H/O hernia repair H/O: hysterectomy Hx of appendectomy H/O lumpectomy Family History Mother Breast cancer Bone cancer Father Diabetes Cardiovascular disease Maternal Grandmother High blood pressure Diabetes Cardiovascular disease Social History Housing: Other Housing Other:: Mobile Home Patient Tobacco Use Status: Former Tobacco user Tobacco use type: Cigarette Cigarette Packs Per Day: 3 Cigarettes Per Day: 60 Years Smoked: 30 e-Cigarette/Vaping Use: Never Used service: No Current occupational status: retired Cognitive needs: No Hearing needs: Yes Vision needs: No Questionnaire Thrive Questionnaire Date Thrive assessed: 12/26/23 GEETA-7 AMB Questionnaire GEETA-7 Date GEETA - 7 assessed: 08/18/23 Source: Developed by Drs. Gurjit White, Yahaira Kent, Yakov Helms and colleagues, with an educational talia from [employer]. Physical exam (Primary Care) Vital Signs: Last Vital Signs Pulse 73 09/27/24 10:26 Resp 16 09/27/24 10:26 BP 130/88 09/27/24 10:26 Pulse Ox 99 09/27/24 10:26 Oxygen Delivery Method Room Air 09/27/24 10:26 BMI result Body Mass Index 47.8 Tobacco/Smoking Status: Tobacco use Status Tobacco use date assessed 01/09/24 09/27/24 10:17 Patient Tobacco Use Status Former Tobacco user 09/27/24 10:17 Tobacco use type Cigarette 09/27/24 10:17 e-Cigarette/Vaping Use Never Used 09/27/24 10:17 Thrive Assessment: Date of Thrive Assessment Date Thrive assessed 12/26/23 09/27/24 10:17 Results AMB Hemoglobin A1c AMB Hemoglobin A1c 6.7 % Last Edit by Vanessa Clemons CMA on 09/27/24 11:02 Coding Assessment & Plan Assessment & Plan Orders: Orders TSH reflex Free T4 Today E11.22 - Type 2 diabetes mellitus with diabetic chronic kidney disease, E83.42 - Hypomagnesemia, K21.9 - Gastro-esophageal reflux disease without esophagitis, N18.31 - Chronic kidney disease, stage 3a Comprehensive Met. Panel Today E11.22 - Type 2 diabetes mellitus with diabetic chronic kidney disease, E83.42 - Hypomagnesemia, K21.9 - Gastro-esophageal reflux disease without esophagitis, N18.31 - Chronic kidney disease, stage 3a Lipid Panel Today E11.22 - Type 2 diabetes mellitus with diabetic chronic kidney disease, E83.42 - Hypomagnesemia, K21.9 - Gastro-esophageal reflux disease without esophagitis, N18.31 - Chronic kidney disease, stage 3a Magnesium Today E11.22 - Type 2 diabetes mellitus with diabetic chronic kidney disease, E83.42 - Hypomagnesemia, K21.9 - Gastro-esophageal reflux disease without esophagitis, N18.31 - Chronic kidney disease, stage 3a AMB Hemoglobin A1c Today E11.22 - Type 2 diabetes mellitus with diabetic chronic kidney disease, N18.31 - Chronic kidney disease, stage 3a Medications: New liraglutide (Victoza 2-Jamarcus) inject 0.6mg subcutaneously once daily x 7 days; then 1.2mg daily, not to exceed 1.8mg/day subcut 9 mL 3RF E11.22 - Type 2 diabetes mellitus with diabetic chronic kidney disease, N18.31 - Chronic kidney disease, stage 3a Refilled metformin ER 500 mg PO BID 90 days 180 tabs 3RF nitroglycerin do not exceed 3 doses per episode 0.4 mg sublingual Q5M 30 days PRN 30 tabs 0RF chest pain cimetidine 200 mg PO QIDACHS 120 tabs 3RF
[2024-09-27 10:26] VITALS: BP 130/88; PULSE 73; RESP 16; O2SAT 99; BMI 47.8
== END 2024-09-27 11:00 | disposition home or self-care (01) ==
PROVIDERS: PCP Internal Medicine; Visit Provider Internal Medicine
DX: E11.22 Type 2 diabetes mellitus with diabetic chronic kidney disease (principal); N18.31 Chronic kidney disease, stage 3a

== ENCOUNTER 2024-09-27 11:11 | Outpatient (REF) | payer OTHER, SELFPAY ==
[2024-09-27 15:05] LABS: Alanine Aminotransferase 14 U/L (0-31); Albumin Level 4.1 g/dL (3.5-5.0); Anion Gap 11 (12-20); Aspartate Amino Transferase 22 U/L (5-31); Bilirubin Total 0.3 mg/dL (0.0-1.0); Blood Urea Nitrogen 14 mg/dL (9-16); Calcium 10.2 mg/dL (8.4-10.2); Carbon Dioxide 27 mmol/L (22-29); Chloride 107 mmol/L (96-108); Cholesterol 168 mg/dL (<200); Estimated Glomerular Filt Rate 57; Glucose Random 128 mg/dL (60-115); HDL Cholesterol 55 mg/dL (>40); LDL Cholesterol Calculated 84 mg/dL (<100); Magnesium 1.8 mg/dL (1.6-2.6); Potassium 4.7 mmol/L (3.3-5.1); Sodium 140 mmol/L (135-145); Total Protein 7.3 g/dL (6.5-8.0); Triglycerides 149 mg/dL (<150)
[2024-09-27 15:10] LABS: TSH reflex Free T4 1.69 uIU/mL (0.32-4.0)
[2024-09-27 15:51] LABS: Alkaline Phosphatase 86 U/L (39-117)
== END 2024-09-27 11:12 | disposition home or self-care (01) ==
LOC: HO.WFDLDS 11:11
PROVIDERS: Visit Provider Internal Medicine
DX: E83.42 Hypomagnesemia (principal); E11.22 Type 2 diabetes mellitus with diabetic chronic kidney disease; N18.31 Chronic kidney disease, stage 3a; K21.9 Gastro-esophageal reflux disease without esophagitis
CPT/HCPCS: 36415; 80053; 80061; 83036; 83735; 84443; 99212

== ENCOUNTER 2024-11-22 11:17 | Outpatient (REF) | payer OTHER, SELFPAY | END 2024-11-22 11:18 | disposition home or self-care (01) | LOC: HO.MAMMO 11:17 | PROVIDERS: PCP Internal Medicine | DX: Z12.31 Encounter for screening mammogram for malignant neoplasm of breast (principal) | CPT/HCPCS: 77063; 77067 ==

== ENCOUNTER → 2024-11-22 12:00 | Outpatient (BNV) | payer OTHER, SELFPAY | PROVIDERS: PCP Internal Medicine; Visit Provider Internal Medicine | DX: Z12.31 Encounter for screening mammogram for malignant neoplasm of breast (principal) | CPT/HCPCS: 77063; 77067 ==

== ENCOUNTER 2025-01-27 10:01 | Outpatient (AMB) | payer OTHER, SELFPAY ==
--- NOTE | 2025-01-27 10:08 | A.OFFPC_ITS ---
Vital Signs 01/27/25 10:13 Height 5 ft 1 in Weight 259 lb 2 oz BMI 49.0 BP 132/72 Blood Pressure Location Rt brachial Position Sitting Respiration 16 Pulse 97 Pulse Source Pulse Oximeter Pulse Oximetry (%) 97 Oxygen Delivery Method Room Air Intake Visit Reasons: DM-1/2 h Intake Note: Diabetes follow up Sheet Metal Erector Required: No Allergies iodine Allergy (Severe, Verified 01/27/25 10:12) Anaphylaxis seafood Allergy (Severe, Verified 01/27/25 10:12) Anaphylaxis yellow dye Allergy (Severe, Verified 01/27/25 10:12) Seizure zine Allergy (Severe, Uncoded 01/27/25 10:12) seizures Tobacco use date assessed: 01/27/25 Fall risk assessment: 1 Fall in past year Last assessed Fall Risk: 01/27/25 Dental Screening Dental Screen Date: 01/27/25 Did you have a dental visit in the last 12 months?: No Did you have a dental problem in the last 6 months where you did not have access to dental care?: No Was dental information given to patient?: Patient declined HPI HPI Comments History of Present Illness Details 69-year-old female with bipolar disorder , depression, anxiety, peptic ulcer disease, GERD, osteoporosis, diabetes type 2, osteoarthritis, COPD, CKD 3a, proteinuria, coronary artery disease, renal mass, CVA with residual deficit (2006), left hemiparesis, diabetic peripheral neuropathy, history of DVT/PE presenting for follow up Diabetes-A1C with interval increase from 6.7% to 7.8%. Patient says she has been eating healthier, walking. She has gained a few pounds. She is on metformin 500mg twice daily and victoza. Intolerant to ozempic (GI SE) Denies diarrhea, vomiting. She plans to call Dr Callejas to follow up on hyperPTH Chronic dyspepsia, heartburn. stable on tagamet. She was on PPI which was stopped on nephro recommendations. Electrolyte disturbance: low mag. Last labs were stable. Recently has had issues with electrolyte disturbances most notable low magnesium. She was hospitalized in november for muscle cramps, weakness and tremors. Received IV mag, discharged on oral magnesium. Saw nephrology as outpatient. US normal. Mag continues to be low. Patient continues to have some cramping and tremors. She was advised to co me off PPI. Has been using pepcid with minimal relief. Mammo: ordered colonoscopy: ROS see HPI PHYSICAL EXAM: GENERAL: Alert and oriented x 3. NAD EYES: EOMI. Anicteric. HENT: Moist mucous membranes. No scleral icterus. No cervical lymphadenopathy. LUNGS: Clear to auscultation bilaterally. CARDIOVASCULAR: Regular rate and rhythm. No murmur. No JVD. ABDOMEN: Soft, non-tender +bs EXTREMITIES: No edema. Non-tender. SKIN: No rashes or lesions. Warm. NEUROLOGIC: No focal neurological deficits. CN II-XII grossly intact PSYCHIATRIC: Cooperative. Appropriate mood and affect [facility] Medical History Uterine cancer Bipolar 1 disorder Depression Anxiety Peptic ulcer GERD (gastroesophageal reflux disease) Back injury Osteoporosis Diabetes Arthritis Stroke COPD (chronic obstructive pulmonary disease) Surgical History H/O right heart catheterization Hx of cholecystectomy H/O hernia repair H/O: hysterectomy Hx of appendectomy H/O lumpectomy Family History Mother Breast cancer Bone cancer Father Diabetes Cardiovascular disease Maternal Grandmother High blood pressure Diabetes Cardiovascular disease Social History Housing: Other Housing Other:: Mobile Home Alcohol intake: current Patient Tobacco Use Status: Former Tobacco user Tobacco use type: Cigarette Cigarette Packs Per Day: 3 Cigarettes Per Day: 60 Years Smoked: 30 e-Cigarette/Vaping Use: Never Used service: No Current occupational status: retired Cognitive needs: No Hearing needs: No Vision needs: No Questionnaire Thrive Questionnaire Date Thrive assessed: 12/26/23 GEETA-7 AMB Questionnaire GEETA-7 Date GEETA - 7 assessed: 08/18/23 Source: Developed by Drs. Gurjit White, Yahaira Kent, Yakov Helms and colleagues, with an educational talia from [employer]. Physical exam (Primary Care) Vital Signs: Last Vital Signs Pulse 97 01/27/25 10:13 Resp 16 01/27/25 10:13 BP 132/72 01/27/25 10:13 Pulse Ox 97 01/27/25 10:13 Oxygen Delivery Method Room Air 01/27/25 10:13 BMI result Body Mass Index 49.0 Tobacco/Smoking Status: Tobacco use Status Tobacco use date assessed 01/27/25 01/27/25 10:18 Patient Tobacco Use Status Former Tobacco user 01/27/25 10:23 Tobacco use type Cigarette 01/27/25 10:23 e-Cigarette/Vaping Use Never Used 01/27/25 10:23 Thrive Assessment: Date of Thrive Assessment Date Thrive assessed 12/26/23 01/27/25 10:08 Results AMB Hemoglobin A1c AMB Hemoglobin A1c 7.8 % Last Edit by Vanessa Clemons CMA on 01/27/25 10:25 Results Reviewed Results Reviewed: Laboratory Last Values Hgb A1c (Clinic) 7.8 % (4.0-6.0) H 01/27/25 10:20 Coding Level of Care Code Est Pt Level 4 (27512) Diagnoses Type 2 diabetes mellitus with stage 3a chronic kidney disease, without long-term current use of insulin E11.22; N18.31 Diabetes mellitus type: type 2 Diabetes mellitus terminal superintendent insulin use: without mcc use Diabetes mellitus complication status: with kidney complications Diabetes mellitus complication detail: with chronic kidney disease Chronic kidney disease stage: stage 3 (moderate) Chronic kidney disease stage 3 subtype: stage 3a (GFR 45-59) Type 2 diabetes mellitus with stage 3a chronic kidney disease, without long-term current use of insulin E11.22; N18.31 Diabetes mellitus mcc insulin use: without mcc use Diabetes mellitus complication detail: with chronic kidney disease Chronic kidney disease stage: stage 3 (moderate) Chronic kidney disease stage 3 subtype: stage 3a (GFR 45-59) Hyperparathyroidism E21.3 Assessment & Plan Assessment & Plan (1) Diabetes: Code(s): E11.9 - Type 2 diabetes mellitus without complications Category: Medical Qualifiers: Diabetes mellitus type: type 2 Diabetes mellitus mcc insulin use: without terminal superintendent use Diabetes mellitus complication status: with kidney complications Diabetes mellitus complication detail: with chronic kidney disease Chronic kidney disease stage: stage 3 (moderate) Chronic kidney disease stage 3 subtype: stage 3a (GFR 45-59) Qualified Code(s): E11.22 - Type 2 diabetes mellitus with diabetic chronic kidney disease; N18.31 - Chronic kidney disease, stage 3a (2) DM (diabetes mellitus), type 2 with renal complications: Code(s): E11.29 - Type 2 diabetes mellitus with other diabetic kidney complication Category: Medical Qualifiers: Diabetes mellitus terminal superintendent insulin use: without mcc use Diabetes mellitus complication detail: with chronic kidney disease Chronic kidney disease stage: stage 3 (moderate) Chronic kidney disease stage 3 subtype: stage 3a (GFR 45-59) Qualified Code(s): E11.22 - Type 2 diabetes mellitus with diabetic chronic kidney disease; N18.31 - Chronic kidney disease, stage 3a (3) Hyperparathyroidism: Code(s): E21.3 - Hyperparathyroidism, unspecified Category: Medical Plan Diabetes-uncontrolled at present. Switch victoza to mounjaro. Will likely need dose increase Diabetic neuropathy-shoes ordered. Refer podiatry. Trial baclofen at night. previously intolerant to gabapentin HyperPTH-she is calling for endocrine follow up Orders: Orders AMB Hemoglobin A1c Today E11.22 - Type 2 diabetes mellitus with diabetic chronic kidney disease, N18.31 - Chronic kidney disease, stage 3a MM tomosynthesis screening BI Today Z12.31 - Encounter for screening mammogram for malignant neoplasm of breast Referrals Podiatry Referral E11.22 - Type 2 diabetes mellitus with diabetic chronic kidney disease, M79.673 - Pain in unspecified foot, N18.31 - Chronic kidney disease, stage 3a Medications: New Mounjaro (tirzepatide) for 4 weeks 2.5 mg (0.5 mL) subcut QWEEK 2 mL 3RF NS E11.22 - Type 2 diabetes mellitus with diabetic chronic kidney disease, N18.31 - Chronic kidney disease, stage 3a baclofen 10 - 20 mg (1 - 2 x 10 mg) PO BEDTIME 60 tabs 3RF [diabetic shoes] 1 pair 1 ea 0RF E11.22 - Type 2 diabetes mellitus with diabetic chronic kidney disease, G62.9 - Polyneuropathy, unspecified, N18.31 - Chronic kidney disease, stage 3a Discontinued liraglutide (Victoza 2-Jamarcus) Discontinued Reason: Doctor's Order inject 0.6mg subcutaneously once daily x 7 days; then 1.2mg daily, not to exceed 1.8mg/day subcut 9 mL 3RF E11.22 - Type 2 diabetes mellitus with diabetic chronic kidney disease, N18.31 - Chronic kidney disease, stage 3a liraglutide Discontinued Reason: Doctor's Order INJECT 0.6 MG SUBCUTANEOUSLY ONCE DAILY FOR 7 DAYS, THEN 1.2 MG ONCE DAILY 9 mL 0RF E11.22 - Type 2 diabetes mellitus with diabetic chronic kidney disease, N18.31 - Chronic kidney disease, stage 3a
[2025-01-27 10:13] VITALS: BP 132/72; PULSE 97; RESP 16; O2SAT 97; BMI 49.0
== END 2025-01-27 10:39 | disposition home or self-care (01) ==
LOC: HO.HMCFM 10:02
PROVIDERS: PCP Internal Medicine; Visit Provider Internal Medicine
DX: E11.22 Type 2 diabetes mellitus with diabetic chronic kidney disease (principal); N18.31 Chronic kidney disease, stage 3a; E21.3 Hyperparathyroidism, unspecified

== ENCOUNTER → 2025-01-27 10:01 | Outpatient (BNVA) | payer OTHER, SELFPAY | PROVIDERS: PCP Internal Medicine; Visit Provider Internal Medicine | DX: E11.22 Type 2 diabetes mellitus with diabetic chronic kidney disease (principal); N18.31 Chronic kidney disease, stage 3a; E11.29 Type 2 diabetes mellitus with other diabetic kidney complication; R80.9 Proteinuria, unspecified; E21.3 Hyperparathyroidism, unspecified; E11.42 Type 2 diabetes mellitus with diabetic polyneuropathy; E83.42 Hypomagnesemia; R10.13 Epigastric pain; Z79.4 Long term (current) use of insulin; Z79.84 Long term (current) use of oral hypoglycemic drugs | CPT/HCPCS: 83036; 99212 ==

== ENCOUNTER 2025-03-17 09:16 | Outpatient (AMB) | payer OTHER, SELFPAY ==
--- NOTE | 2025-03-17 09:23 | A.OFFVIS_ITS ---
Vital Signs 03/17/25 09:25 Height 5 ft 1 in Weight 257 lb 15.053 oz BMI 48.7 BP 136/78 Blood Pressure Location Rt brachial Position Sitting Pulse 82 Pulse Source Pulse Oximeter Pulse Oximetry (%) 97 Oxygen Delivery Method Room Air Intake Visit Reasons: Hyperparathyroidism, Intake Note: Patient present today for Hyperparathyroidism follow up. Tool Room Lathe Operator Required: No Accompanied by: Self / Same As Patient Allergies iodine Allergy (Severe, Verified 03/17/25 09:26) Anaphylaxis seafood Allergy (Severe, Verified 03/17/25 09:26) Anaphylaxis yellow dye Allergy (Severe, Verified 03/17/25 09:26) Seizure zine Allergy (Severe, Uncoded 03/17/25 09:26) seizures Medication List - Last Reconciled 03/17/25 by Gurjit Callejas MD baclofen 10 - 20 mg (1 - 2 x 10 mg) PO BEDTIME cimetidine 200 mg PO QIDACHS Combivent Respimat 20-100 mcg/actuation (ipratropium-albuterol) 1 puff PO Q6H NS commode (bedside commode) As directed [diabetic shoes 1 pair with 3 pairs custom inserts] magnesium chloride (Slow-Mag) 214.5 mg (3 x 71.5 mg) PO TID 90 days metformin ER 500 mg PO BID 90 days Mounjaro (tirzepatide) 2.5 mg (0.5 mL) subcut QWEEK NS nitroglycerin 0.4 mg sublingual Q5M PRN 30 days peg 3350-electrolytes 236-22.74-6.74 -5.86 gram (Golytely) 240 mL PO Q10M pen needle, diabetic (Advocate Pen Needle) once daily HPI Comments Details: 69 YO F with PMHx CKD who is seen in consultation at the request of PCP for increased parathyroid level First noted to have high PTH . Recently sent Not Currently using Calcium supplement . Not Takes Vitamin D daily. Currently using HCTZ. Kidney stones: No Osteoporosis: No - has bone density 02/29/2024 History of [place] use: used [place] 23 yrs 5 yrs a go Biotin use: No Family history of high calcium or kidney stones: No Renal imaging: Yes DXA: Labs: Taking calcium and vitamin D supplements as well as K supplementation and Mg The patient is a 69-year-old female presenting with hyperparathyroidism, and vitamin D deficiency. The patient has a history of hyperparathyroidism, which was noted to be associated with elevated parathyroid hormone levels. There is a concern that low vitamin D levels may be contributing to this condition, and the patient has been advised to undergo lab tests to monitor these levels. The patient also has a long-standing history of diabetes mellitus, which has been managed with various medications over the years. Recently, the patient has developed foot ulcers, a complication of diabetes, and is seeking specialized care for diabetes management. Vitamin D deficiency was identified in the past, with the last recorded level being low in 2011. The patient has been taking calcium with vitamin D supplements, but the exact dosage is unclear, necessitating further evaluation and possible adjustment of supplementation. [facility] Medical History Uterine cancer Bipolar 1 disorder Depression Anxiety Peptic ulcer GERD (gastroesophageal reflux disease) Back injury Osteoporosis Diabetes Arthritis Stroke COPD (chronic obstructive pulmonary disease) Surgical History H/O right heart catheterization Hx of cholecystectomy H/O hernia repair H/O: hysterectomy Hx of appendectomy H/O lumpectomy Family History Mother Breast cancer Bone cancer Father Diabetes Cardiovascular disease Maternal Grandmother High blood pressure Diabetes Cardiovascular disease Social History Housing: Other Housing Other:: Mobile Home Alcohol intake: current Patient Tobacco Use Status: Former Tobacco user Tobacco use type: Cigarette Cigarette Packs Per Day: 3 Cigarettes Per Day: 60 Years Smoked: 30 e-Cigarette/Vaping Use: Never Used service: No Current occupational status: retired Cognitive needs: No Hearing needs: No Vision needs: No Physical Exam Vital Signs: Last Vital Signs Pulse 82 03/17/25 09:25 BP 136/78 03/17/25 09:25 Pulse Ox 97 03/17/25 09:25 Oxygen Delivery Method Room Air 03/17/25 09:25 BMI result Body Mass Index 48.7 Assessment & Plan Assessment & Plan (1) Elevated parathyroid hormone: Code(s): R79.89 - Other specified abnormal findings of blood chemistry Category: Medical Plan: This 69-year-old white female sent to endocrinology for evaluation of elevated parathyroid levels as well as mild elevation in calcium suggestive of primary hyperparathyroidism. Rule out an element of secondary hyperparathyroidism due to vitamin-D deficiency. She had a normal renal ultrasound without kidney stones and does not have osteoporosis Plan is to recheck calcium, albumin, ionized calcium, PTH, 25 hydroxy vitamin-D, 24 hour urine for calcium and creatinine at [facility] ( [facility]). Further workup based on the above. 1. Hyperparathyroidism The patient will undergo repeat lab tests to assess calcium and parathyroid hormone levels as well as 24 hr urine calcium at alternative [facility] 2. Diabetes Mellitus The patient is advised to seek specialized diabetes management with primary care diabetes team either Izzy or Jeanine due to the development of foot ulcers and dissatisfaction with current care. 3. Vitamin D deficiency The patient will have vitamin D levels rechecked, and supplementation may be adjusted based on the results. The patient had an opportunity to ask questions regarding treatment plan. The patient expressed understanding and agreement with the above treatment plan. Patient was informed and verbally consented to the use of an ambient scribe for clinic note documentation during this visit. Orders: Orders Calcium Today .89 - Other specified abnormal findings of blood chemistry Albumin Level Today - Other specified abnormal findings of blood chemistry Parathyroid Hormone Intact Today . - Other specified abnormal findings of blood chemistry Calcium, 24 Hr Ur Today . - Other specified abnormal findings of blood chemistry Vitamin D 25-OH Total Today - Other specified abnormal findings of blood chemistry Creatinine, 24 Hr Group Today . - Other specified abnormal findings of blood chemistry Coding Level of Care Code Est Pt Level 3 (87480) Diagnoses Elevated parathyroid hormone .
[2025-03-17 09:25] VITALS: BP 136/78; PULSE 82; O2SAT 97; BMI 48.7
--- OUTSIDE RECORDS SUMMARY | 2025-03-17 10:00 | XMS_ITS | Clinical Summary ---
Author Organization [address] [place] [address] Address [address] [place] [address] Phone Care Team Providers Care Operator Helper Name Role Phone Roshni Dean MD Primary Care Provider [phone] Social History Tobacco Use Types Packs/Day Years Used Date Smoking Tobacco: Never Assessed Comments Unknown Sex and Gender Information Value Date Recorded Sex Assigned at Not on file Legal Sex Female 7:41 AM EDT Gender Identity Not on file Sexual Orientation Not on file Plan of Treatment Upcoming Encounters Date Type Department Care Team ([facility] Contact Info) Description 05/12/2025 3:00 PM EDT Office Visit Orthopedic Surgery [place] [id number] [phone] Jhoan Benjamin, DPM [address] [address] Health Maintenance Due Date Last Done Comments Breast Cancer Screening 1955 Diabetes: Annual GFR (Glomer ular Filtration Rate) 1954 Diabetes: Annual Foot Exam 1964 Diabetes: Annual Retina Eye Exam 1964 DTaP,Tdap,and Td Vaccines (1 - Tdap) 1973 Pneumococcal Vaccine: 50+ Ye ars (1 of 2 - PCV) 1973 Zoster Vaccines (1 of 2) 2004 RSV Immunization Adult Patie nts (1 - Risk 60-74 years 1-dose series) 2014 COVID-19 Vaccine (1 - 2023-2 5 season) 2024 Depression Screening 07/24/2024 Cholesterol Screening (Lipid Panel) 01/28/2025 Colorectal Cancer Screening: Colonoscopy 01/28/2025 Diabetes: Annual Urine Albumin-Creatinine Ratio (uACR) 01/28/2025 Diabetes: Blood Sugar Contro l Test (HGBA1C) 01/28/2025 Falls Risk Assessment 01/28/2025 Hepatitis C Screening 01/28/2025 Medicare Annual Wellness Visit 01/28/2025 Osteoporosis Screening (Bone Density Screening) 01/28/2025 Social Influencers of Health Screening 01/28/2025 Influenza Vaccine (#1) 2025 HIB Vaccines Aged Out No longer eligi ble based on patient's age to complete this topic HPV Vaccines Aged Out No longer eligi ble based on patient's age to complete this topic Hepatitis A Vaccines Aged Out No long er eligible based on patient's age to complete this topic Hepatitis B Vaccines Aged Out No long er eligible based on patient's age to complete this topic IPV Vaccines Aged Out No longer eligi ble based on patient's age to complete this topic MMR Vaccines Aged Out No longer eligi ble based on patient's age to complete this topic Meningococcal ACWY Vaccine Aged Out N o longer eligible based on patient's age to complete this topic Meningococcal B Vaccine Aged Out No l onger eligible based on patient's age to complete this topic RSV Immunization Patients Un wendy 20 months Aged Out No longer eligible b ased on patient's age to complete this topic Varicella Vaccines Aged Out No longer eligible based on patient's age to complete this topic [place] [address] [address] MEDICARE Member Subscriber Plan / Payer (Ef fective 2023-Present) Name:SOFIYA ALLEN Relation to Subscriber:Self Name:Sofiya Allen Payer ID:[id number] Group ID:[id number] Type:Not on file Address: [facility] [address] [id number] Care Teams Operator Helper Relationship Specialty Start Date End Date Roshni Dean MD [address] [place] [address] PCP - General Internal Medicine 01/28/25
== END 2025-03-17 09:51 | disposition home or self-care (01) ==
LOC: HO.ENCR 09:17
PROVIDERS: PCP Internal Medicine; Visit Provider Internal Medicine Endocrinology, Diabetes & Metabolism
DX: R79.89 Other specified abnormal findings of blood chemistry (principal)
CPT/HCPCS: 99213

== ENCOUNTER → 2025-03-17 09:16 | Outpatient (BNVA) | payer OTHER, SELFPAY | PROVIDERS: PCP Internal Medicine; Visit Provider Internal Medicine Endocrinology, Diabetes & Metabolism | DX: R79.89 Other specified abnormal findings of blood chemistry (principal); E21.3 Hyperparathyroidism, unspecified; E55.9 Vitamin D deficiency, unspecified | CPT/HCPCS: 99212 ==

== ENCOUNTER 2025-06-10 13:52 | Outpatient (AMB) | payer OTHER, SELFPAY ==
[2025-06-10 14:08] VITALS: BP 112/84; PULSE 102; RESP 14; O2SAT 98; BMI 45.9
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
== END 2025-06-10 15:00 | disposition home or self-care (01) ==
LOC: HO.HMCFM 13:52
PROVIDERS: PCP Internal Medicine; Visit Provider Internal Medicine
DX: E11.22 Type 2 diabetes mellitus with diabetic chronic kidney disease (principal); N18.31 Chronic kidney disease, stage 3a; E21.3 Hyperparathyroidism, unspecified

== ENCOUNTER → 2025-06-10 13:52 | Outpatient (BNVA) | payer OTHER, SELFPAY | PROVIDERS: PCP Internal Medicine; Visit Provider Internal Medicine | DX: E11.22 Type 2 diabetes mellitus with diabetic chronic kidney disease (principal); N18.31 Chronic kidney disease, stage 3a; E21.3 Hyperparathyroidism, unspecified; J45.909 Unspecified asthma, uncomplicated; E11.42 Type 2 diabetes mellitus with diabetic polyneuropathy; I69.354 Hemiplegia and hemiparesis following cerebral infarction affecting left non-dominant side; R10.13 Epigastric pain; Z79.84 Long term (current) use of oral hypoglycemic drugs; Z13.31 Encounter for screening for depression | CPT/HCPCS: 83036; 96127; 99212 ==